=== PATIENT | male | born 1945 ===

== ENCOUNTER 2017-09-03 13:14 | Inpatient (IN) | payer MEDICARE, OTHER ==
[2017-09-03] MEDS ORDERED: Lactated Ringer's 1,000 ML IV SCH (14:30)
--- NOTE | 2017-09-03 15:00 | CT ---
PROCEDURE: CT HEAD WITHOUT CONTRAST. HISTORY: 71yoM, with dementia, generalized weakness COMPARISON: None available. TECHNIQUE: Axial computed tomography images were obtained through the head/brain without intravenous contrast. Radiation dose: Total exam DLP = 775 mGy-cm. This CT exam was performed using one or more of the following dose reduction techniques: Automated exposure control, adjustment of the mA and/or kV according to patient size, and/or use of iterative reconstruction technique. FINDINGS: HEMORRHAGE: No intracranial hemorrhage. BRAIN: No mass effect or edema. There is moderate atrophy. VENTRICLES: Unremarkable. No hydrocephalus. CALVARIUM: Unremarkable. PARANASAL SINUSES: There is complete opacification of the right maxillary sinus. There is also bony thickening consistent with chronic sinusitis. MASTOID AIR CELLS: Unremarkable as visualized. No inflammatory changes. OTHER FINDINGS: None. IMPRESSION: No acute findings
[2017-09-03 15:30] LABS: BASO # 0.03 K/mm3 (0.0-2.0); BASO % 0.3 % (0.0-3.0); EOS # 0.2 (0.0-0.7); EOS % 1.3 % (1.5-5.0); GRAN # 8.44 (1.4-6.5); GRAN % 72.4 % (50.0-68.0); HEMATOCRIT 37.6 % (42.0-52.0); LYMPH # 2.2 (1.2-3.4); LYMPH % 19.2 % (22.0-35.0); MEAN CELL VOLUME 101.1 fl (80.0-105.0); MEAN CORPUSCULAR HEMOGLOBIN 32.3 pg (25.0-35.0); MEAN CORPUSCULAR HGB CONC 31.9 g/dl (31.0-37.0); MEAN PLATELET VOLUME 11.8 fl (7.0-11.0); MONO # 0.8 (0.1-0.6); MONO % 6.8 % (1.0-6.0); WHITE BLOOD COUNT 11.7 10^3/ul (4.5-11.0)
[2017-09-03 15:45] LABS: INR 1.17 (0.93-1.08); PARTIAL THROMBOPLASTIN TIME 19.2 Seconds (25.1-36.5)
[2017-09-03 15:53] LABS: TROPONIN I 0.05 ng/mL
[2017-09-03 16:04] LABS: ALB/GLOB RATIO 1.2 (1.1-1.8); BILIRUBIN,TOTAL 0.7 mg/dL (0.2-1.3); CALCIUM 9.5 mg/dL (8.4-10.5); MAGNESIUM 1.6 mg/dL (1.7-2.2); POTASSIUM 5.1 mmol/L (3.6-5.0); TOTAL PROTEIN 6.2 g/dL (5.8-8.3)
--- NOTE | 2017-09-03 16:14 | RAD ---
HISTORY: 71yoM, dementia, generalized weakness, cough COMPARISON: None available. TECHNIQUE: Chest PA and lateral FINDINGS: Limited study as patient's could not elevate arms. LUNGS: No focal consolidation. Please note that chest x-ray has limited sensitivity for the detection of pulmonary masses. PLEURA: Skin fold limits evaluation of the lateral right lower chest. No significant pleural effusion identified. No definite pneumothorax . CARDIOVASCULAR: Median sternotomy wires with evidence of CABG. Heart size appears within normal limits. Ectatic aorta. Atherosclerotic calcifications of the aorta. OSSEOUS STRUCTURES: Degenerative changes. VISUALIZED UPPER ABDOMEN: Unremarkable. OTHER FINDINGS: None. IMPRESSION: Limited study. No acute findings identified. See above.
[2017-09-03] MEDS ORDERED: Insulin Regular 1 UNITS/0.01 ML ML IV ONE (16:59)
[2017-09-03] MEDS ORDERED: Magnesium Sulfate 2 GM in Sodium Chloride 0.9% 100 ML IVPB ONE (17:00)
--- NOTE | 2017-09-03 17:04 | ED PDOC ---
Arrival/HPI - General Chief Complaint: Weakness/Neurological Deficit Time Seen by Provider: 09/03/17 13:25 Historian: Patient, Spouse - History of Present Illness Narrative History of Present Illness (Text): pt w , hx of alzheimer's, non-verbal, recent dc from [facility] about 3wks ago, having progressive weakness, and dry cough. bruising. unable to ambulate anymore. 09/03/17 17:02 Symptom Course: Unchanged Past Medical History - Provider Review Nursing Documentation Reviewed: Yes - Infectious Disease Hx of Infectious Diseases: None - Cardiac Hx Cardiac Disorders: Yes Hx Hypertension: Yes Other/Comment: Tripple bypass - Pulmonary Hx Respiratory Disorders: No - Neurological Hx Neurological Disorder: Yes Hx Alzheimer's Disease: Yes - HEENT Hx HEENT Disorder: No - Renal Hx Renal Disorder: No - Endocrine/Metabolic Hx Endocrine Disorders: Yes Hx Diabetes Mellitus Type 2: Yes - Hematological/Oncological Hx Blood Disorders: No - Integumentary Hx Dermatological Disorder: No - Musculoskeletal/Rheumatological Hx Musculoskeletal Disorders: Yes Hx Unsteady Gait: Yes - Gastrointestinal Hx Gastrointestinal Disorders: No - Genitourinary/Gynecological Hx Genitourinary Disorders: No - Psychiatric Hx Psychophysiologic Disorder: No Hx Substance Use: No - Surgical History Other/Comment: tripple bypass - Anesthesia Hx Anesthesia: Yes Hx Anesthesia Reactions: No Family/Social History Family/Social History: No Known Family HX Smoking Status: Never Smoked Hx Alcohol Use: No Hx Substance Use: No Allergies/Home Meds Allergies/Adverse Reactions: Allergies Penicillins Allergy (Verified 09/03/17 13:34) ANAPHYLAXIS Home Medications: Home Meds Medication Instructions Recorded Confirmed Aspirin [Adult Low Dose Aspirin EC] 81 mg PO DAILY 09/03/17 09/03/17 Atorvastatin [Lipitor] 80 mg PO DAILY 09/03/17 09/03/17 Carvedilol [Coreg] 1 tab PO DAILY 09/03/17 09/03/17 Memantine [Namenda] 10 mg PO DAILY 09/03/17 09/03/17 MetFORMIN [glucoPHAGE] 1,000 mg PO DAILY 09/03/17 09/03/17 Nitroglycerin 0.4 mg/hr [Nitro-Dur 1 patch TD DAILY 09/03/17 09/03/17 0.4 mg/hr Patch] Pantoprazole Sodium [Protonix] 40 g PO DAILY 09/03/17 09/03/17 Rivastigmine Tartrate 9.5 mg PO DAILY 09/03/17 09/03/17 [Rivastigmine] amLODIPine [Norvasc] 10 mg PO DAILY 09/03/17 09/03/17 Review of Systems - Review of Systems Constitutional: Fatigue Eyes: Normal ENT: Normal Respiratory: Normal Cardiovascular: Normal Gastrointestinal: Normal Genitourinary Male: Normal Musculoskeletal: Normal Skin: Normal, Other (bruising) Neurological: Other (non-verbal) Hemo/Lymphatic: Normal, Easy Bruising Physical Exam - Physical Exam Physical Exam Limitations: Other (non-verbal) Vital Signs Reviewed: Yes Vital Signs Temp Pulse Resp BP Pulse Ox 09/03/17 17:01 96 H 18 124/91 H 97 09/03/17 16:54 89 18 132/75 97 09/03/17 15:04 99 H 18 135/78 97 09/03/17 13:30 99.8 F H 106 H 18 138/85 97 Temperature: Afebrile Blood Pressure: Normal Pulse: Regular Respiratory Rate: Normal Appearance: Positive for: Well-Appearing Pain Distress: None Mental Status: Positive for: other (non-verbal) Finger Stick Blood Glucose: 500 - Systems Exam Head: Present: Atraumatic Pupils: Present: PERRL Extroacular Muscles: Present: EOMI Conjunctiva: Present: Normal Ears: Present: Normal Mouth: Present: Moist Mucous Membranes Pharnyx: Present: Normal Nose (External): Present: Atraumatic Nose (Internal): Present: Normal Inspection Neck: Present: Normal Range of Motion Respiratory/Chest: Present: Clear to Auscultation, Good Air Exchange Abdomen: No: Tenderness, Distention, Normal Bowel Sounds, Peritoneal Signs, Rebound, Guarding, McBurney's Point Tender, Rovsing's Sign Present, Hernias, Feeding Tubes, Ostomy Tubes, Mass/Organomegaly, Scars, Other Back: Present: Normal Inspection Upper Extremity: Present: Other (b;l ue mild bruising ) Lower Extremity: Present: Normal Inspection Neurological: Present: Other (non-verbal. at baseline per ) Medical Decision Making ED Course and Treatment: pt w hyperglycemia 542 w ag 21, hypernatremia 151, hyperkalemia 5.1 wo peaked t waves, wbc 11.7, ivf hydration, repeat fs 497 - 8 u regular insulin given, awaiting ua. creatinine 1.7 09/03/17 17:29 09/03/17 17:32 Chest X-ray Dictator : Ronel Haddad MD Report Date : 09/03/2017 16:12:19 IMPRESSION: Limited study. No acute findings identified. See above. PROCEDURE: CT HEAD WITHOUT CONTRAST. Dictator : Pablo Padilla MD Report Date : 09/03/2017 14:59:14 IMPRESSION: No acute findings 09/03/17 17:[address] Dorman who will admit the patient. - Lab Interpretations Lab Results: 09/03/17 15:21 09/03/17 15:21 Lab Results 09/03/17 15:21: PT 12.8 H, INR 1.17 H, APTT 19.2 L 09/03/17 15:21: Sodium 151 H, Potassium 5.1 H, Chloride 117 H, Carbon Dioxide 18 L, Anion Gap 21 H, BUN 82 H, Creatinine 3.0 H, Est GFR ( Amer) 25, Est GFR (Non-Af Amer) 21, Random Glucose 542 H*, Calcium 9.5, Magnesium 1.6 L, Total Bilirubin 0.7, AST 45, ALT 41, Alkaline Phosphatase 144 H, Troponin I 0.05 , Total Protein 6.2, Albumin 3.3, Globulin 2.8, Albumin/Globulin Ratio 1.2 09/03/17 15:21: WBC 11.7 H, RBC 3.72, Hgb 12.0 L, Hct 37.6 L, MCV 101.1, MCH 32.3, MCHC 31.9, RDW 13.0, Plt Count 145, MPV 11.8 H, Gran % 72.4 H, Lymph % ( Auto) 19.2 L, [place] % (Auto) 6.8 H, Eos % (Auto) 1.3 L, Baso % (Auto) 0.3, Gran # 8.44 H, Lymph # 2.2, [place] # 0.8 H, Eos # 0.2, Baso # 0.03 I have reviewed the lab results: Yes - RAD Interpretation Narrative RAD Interpretations (Text): cxr no acute findings. CT head: opacification, thickening sinusitis. no acute findings. 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 - EKG Interpretation Interpreted by ED Physician: Yes (sinus tachycardia, flipped waves av4, v4-6, flattened avl) - Medication Orders Current Medication Orders: Lactated Ringer's (Lactated Ringer's) 1,000 mls @ 999 mls/hr IV .Q1H1M PARKER Last Admin: 09/03/17 14:30 Dose: 999 mls/hr eMAR Start Stop Document 09/03/17 14:30 OCS (Rec: 09/03/17 17:01 OCS [facility] [id number]) Intravenous Solution Start Date 09/03/17 Start Time 17:01 End Date 09/03/17 End time 18:02 Total Infusion Time 61 Magnesium Sulfate 2 gm/ Sodium (Chloride) 104 mls @ 102 mls/hr IVPB ONCE ONE Stop: 09/03/17 18:01 Last Admin: 09/03/17 17:23 Dose: 102 mls/hr eMAR Start Stop Document 09/03/17 17:23 OCS (Rec: 09/03/17 17:24 O[place] [facility] [id number][place] Intravenous Solution Start Date 09/03/17 Start Time 17:24 End Date 09/03/17 End time 18:26 Total Infusion Time 62 Lactated Ringer's (Lactated Ringer's) 1,000 mls @ 999 mls/hr IV .Q1H1M STA Stop: 09/03/17 18:36 Last Admin: 09/03/17 17:39 Dose: 999 mls/hr eMAR Start Stop Document 09/03/17 17:39 OCS (Rec: 09/03/17 17:40 OCS [facility] [id number]) Intravenous Solution Start Date 09/03/17 Start Time 17:40 End Date 09/03/17 End time 18:40 Total Infusion Time 60 Discontinued Medications Insulin Human Regular (Humulin R) 8 units IV ONCE ONE Stop: 09/03/17 17:00 Last Admin: 09/03/17 17:23 Dose: 8 units eMAR Start Stop Document 09/03/17 17:23 OCS (Rec: 09/03/17 17:23 OCS [facility] [id number]) Intravenous Solution Start Date 09/03/17 Start Time 17:23 End Date 09/03/17 End time 17:24 Total Infusion Time 1 MAR Blood Glucose Document 09/03/17 17:23 OCS (Rec: 09/03/17 17:23 OCS [facility] [id number]) Blood Glucose Finger Stick Blood Glucose (70-120) 500 Disposition/Present on Arrival - Present on Arrival Any Indicators Present on Arrival: No History of DVT/PE: No History of Uncontrolled Diabetes: Yes Urinary Catheter: No History of Decub. Ulcer: No History Surgical Site Infection Following: None - Disposition Have Diagnosis and Disposition been Completed?: Yes Diagnosis: Hyperglycemia Disposition Time: 17:41 Condition: STABLE Referrals: Jama Dorman MD [Primary Care Provider] - Follow up with primary Forms: Utan (Korean)
[2017-09-03] MEDS ORDERED: Lactated Ringer's 1,000 ML IV STA (17:36)
[2017-09-03 18:26] LABS: PH,URINE 5.5 (4.7-8.0); URINE BILIRUBIN NEGATIVE (NEGATIVE); URINE BLOOD SMALL (NEGATIVE); URINE GLUCOSE (UA) >=1000 mg/dL (NEGATIVE); URINE KETONE NEGATIVE (NEGATIVE); URINE LEUKOCYTE ESTERASE NEGATIVE Leu/uL (NEGATIVE); URINE PROTEIN TRACE mg/dL (<30 mg/dL); URINE UROBILINOGEN 0.2 E.U./dL (<1 E.U./dL)
[2017-09-03 18:30] LABS: URINE APPEARANCE CLEAR (CLEAR); URINE COLOR YELLOW (YELLOW)
[2017-09-03 18:39] LABS: URINE BACTERIA MANY (NEG); URINE WBC 0 - 2 /hpf (0-6)
[2017-09-03 18:40] LABS: URINE AMORPHOUS SEDIMENT FEW
[2017-09-03] MEDS: Insulin Reg-MEDIUM-Coverage SC SCH (21:30)
[2017-09-03 21:47] VITALS: BMI 25.1
[2017-09-03] MEDS ORDERED: Pneumococcal 23-Valent Vaccine IM ONE (21:47)
[2017-09-03] MEDS ORDERED: Influenza Vaccine 60 mcg/0.5 mL SYR (4YR UP) IM ONE (21:47)
[2017-09-04] MEDS: Insulin Reg-MEDIUM-Coverage SC SCH ×4 (08:49→23:09)
--- NOTE | 2017-09-04 09:57 | CON ---
DATE: 09/04/2017 The patient is admitted for Dr. Jama Dorman. REFERRING PHYSICIAN: Jama Dorman MD REASON FOR CONSULTATION: Evaluation of the patient unknown to me who presents with an elevated BUN and creatinine. HISTORY OF PRESENT ILLNESS: The patient is a 71-year-old male who is noncommunicative secondary to advanced dementia and Alzheimer disease. Long history of NIDDM, history of atherosclerotic heart disease. History of hypertension. History of hyperlipidemia. The patient apparently had been hospitalized at [facility] recently and was told that he had an issue with his kidney. It was not clear what type of workup be had. From my discussion with Dr. Dorman who sees the patient infrequently in the office, there is apparently no recollection of having any significant kidney issue. The patient presents to the hospital with increased weakness. He has not have a BUN of 82 with a creatinine of 3.0. His glucose is 542 with that point in time. Sodium was 151 with a potassium of 5.1. CO2 level was 18 with an anion gap of 21. All of the history is obtained from Dr. Dorman and from the chart as the patient is not communicative. PAST MEDICAL HISTORY: Significant for that of longstanding NIDDM, history of Alzheimer disease with worsening dementia. The patient is noncommunicative. History of atherosclerotic heart disease. History of hypertension. History of hyperlipidemia. No apparent history of anemia. MEDICATIONS AT HOME: Include that of Norvasc rivastigmine, Protonix, nitroglycerin patch, metformin, Namenda, Coreg, Lipitor, and baby aspirin. ALLERGIES: THE PATIENT HAS AN ALLERGY TO PENICILLIN WITH ANAPHYLAXIS. CURRENT MEDICATIONS: In the hospital include that of lactated Ringer's, Namenda, sliding scale insulin, Exelon patch, Ecotrin, and Coreg. SOCIAL HISTORY: No history of cigarette smoking. No history of alcohol use. FAMILY HISTORY: Completely unobtainable. REVIEW OF SYSTEMS: Unobtainable as the patient is noncommunicative. PHYSICAL EXAMINATION: GENERAL: The patient is currently seen on 5R. He appears to be comfortable lying supine in bed. Again, he is nonverbal. VITAL SIGNS: Blood pressure 144/69, temperature 97.1 with a T-max of 99.8. Respiratory rate is 16 with a pulse ox of 96%, and pulse of 97. HEENT: Exam shows him to be normocephalic, atraumatic. Eyes are open. Posterior pharynx appears normal. Conjunctiva are pink. Sclerae are nonicteric. NECK: Supple. No neck vein distention. No thyromegaly. No lymphadenopathy. No bruits. CHEST: Clear to auscultation and percussion with no rales, no rhonchi or wheezing. CARDIOVASCULAR: Shows a regular rate and rhythm without murmurs, rubs or gallops. ABDOMEN: Soft. Bowel sounds normal. No rebound. No guarding. No masses. No abdominal distention. BACK: No CVAT. No spinal tenderness. EXTREMITIES: Show no lower extremity cyanosis, clubbing or edema. Distal lower extremity pulses are 1 to 2+ bilaterally. NEUROLOGIC: Difficult to assess as the patient is noncommunicative. He appears to be alert with no gross focal motor deficits that are obvious to me. LABORATORY DATA AND IMAGING: Admitting head CT, no acute findings. Admitting chest x-ray, no acute pulmonary disease. Labs, CBC, white blood cell count 11.7, hemoglobin 12.0 with a platelet count of 145,000. Coags, PT 12.8 with a PTT of 19.2. Chemistries, sodium 151, potassium 5.1, chloride 117 with a CO2 of 18. BUN is 82 with a creatinine of 3.0. There are no previous BUN and creatinine determinations available in the EMR. Glucose on admission was 542. Calcium was 9.5 with a magnesium of 1.6. Liver enzymes were essentially normal. Troponin is negative. Albumin is 3.3. Most recent glucose is down to 292 on sliding scale insulin. Urine showed red blood cells in his urine, no significant white blood cells, positive bacteria. Positive yeast. Microbiology, no results yet. ASSESSMENT: Elevated BUN and creatinine. As of dictation, it is unclear as to what his BUN and creatinine were during his recent admission to [facility]. He was told that there was an issue with his kidney. Dr. Dorman and I had discussed this prior to the dictation. Dr. Dorman spoke to the patient's . Apparently there is some issue with the kidney but it is not clear to the severity of this issue. I do not want to do a complete full renal workup, but I will do a precursory renal workup. We will obtain renal ultrasounds. It would be important to try and obtain recent lab results from his recent hospitalizations at [facility]. Non-insulin dependent diabetes mellitus with hyperglycemia. The patient will continue on sliding scale insulin. Mild hypernatremia with hyperkalemia. We will switch the patient over to half-normal saline, potassium-free IV fluids until its certain that his p.o. intake is adequate. History of arteriosclerotic heart disease, appears to be stable. The patient will continue on present outpatient medications. History of Alzheimer disease with progressive dementia. The patient is nonverbal and noncommunicative. History of hyperlipidemia. The patient will continue statin therapy. PLAN: 1. Discussed with Dr. Dorman and staff in detail. I will limit the scope of the renal workup and I will obtain preliminary studies. Most importantly, we will try and obtain recent outpatient records. 2. We will obtain a phosphorus level. Perhaps binder therapy if phosphorus level is elevated. I will obtain a PTH level and a vitamin D level. 3. We will obtain a urine C and S in light of bacteria and yeast in his urine. 4. We will monitor daily labs over the next several days. 5. Monitor accurate Is and Os. 6. Agree with placing the patient on a renal diet. 7. As discussed with Dr. Dorman should the patient's renal parameters significantly worsen, he would make a very poor candidate for dialysis in light of his current neurological status. Thank you for letting me partake and share in the care of your patient. Bravo Carr MD
[2017-09-04] MEDS ORDERED: RIVASTIGMINE TARTRATE PO SCH (10:00)
--- NOTE | 2017-09-04 10:04 | US ---
PROCEDURE: Ultrasound of the Kidneys HISTORY: arf COMPARISON: None available. TECHNIQUE: Sonogram of the kidneys. FINDINGS: RIGHT KIDNEY: Right kidney measures approximate 9.2 x 5.3 x 5.4 cm. Normal in size, contour and however increased echotexture; rule out underlying medical renal disease. No stone, solid mass lesion or hydronephrosis visualized. LEFT KIDNEY: Left kidney measures approximately 9.0 x4 0.5 x 5.1 cm. Normal in size, contour however increased echotexture; rule out underlying medical renal disease. No stone, solid mass lesion or hydronephrosis visualized. OTHER FINDINGS: None. IMPRESSION: No evidence of nephrolithiasis or hydronephrosis. Echogenic kidneys suggests underlying medical renal disease. Clinical correlation recommended.
--- NOTE | 2017-09-04 10:47 | CARD ---
APPROVED REPORT EKG Measurement Heart [id number] <Conclusion> Poor data quality, interpretation may be adversely affected Sinus tachycardia Inferior infarct, age undetermined Abnormal ECG
[2017-09-04] MEDS: Sodium Chloride 0.45% 1,000 ML IV SCH (11:16)
[2017-09-04 14:00] LABS: T4 8.8 ug/dL (5.5-11.0)
[2017-09-04 14:14] LABS: THYROID STIMULATING HORMONE 0.27 mIU/mL (0.46-4.68)
--- NOTE | 2017-09-05 01:12 | HP ---
HISTORY OF PRESENT ILLNESS: A 71-year-old [place] Islander male with a long history of dementia, history of hypertension, initially admitted to [facility] for weakness and inability to walk. The patient also had hip pain. X-rays of the lumbar spine actually revealed that the left hip had no significant fractures. There was some degenerative arthritis. The patient had severe weakness, was brought to the emergency room at [facility] and was found to have renal failure with BUN and creatinine of 82 and 3.0. Blood sugar over 542, elevated sodium of 151, elevated potassium of 5.1 and bicarb of 18. White count 11.7. PHYSICAL EXAMINATION VITAL SIGNS: The patient is afebrile, blood pressure 144/69. GENERAL: The patient is nonverbal. He is arousable, awake, and alert. He is thin male in no apparent distress. HEART: Reveals sinus rhythm. CHEST: Clear to auscultation. ABDOMEN: Benign. GENITOURINARY: The patient is incontinent of urine. NEUROLOGICAL EXAMINATION: Grossly intact except for patient unable to cooperate with exam and he is nonverbal. Apparently, he has a long history of dementia. Discussed with the family as far as DNR and they have not determined the status at this point, but we will get clarification from his . IMPRESSION: A 71-year-old white male with long history of dementia, uncontrolled diabetes mellitus, hypernatremia, hyperkalemia, and renal insufficiency acute versus chronic, and hyperglycemia. Jama Dorman MD cc:
[2017-09-05 05:00] LABS: BASO # 0.03 K/mm3 (0.0-2.0); BASO % 0.3 % (0.0-3.0); EOS # 0.4 (0.0-0.7); EOS % 3.9 % (1.5-5.0); GRAN # 8.12 (1.4-6.5); GRAN % 74.5 % (50.0-68.0); HEMATOCRIT 36.4 % (42.0-52.0); LYMPH # 1.8 (1.2-3.4); LYMPH % 16.2 % (22.0-35.0); MEAN CELL VOLUME 97.3 fl (80.0-105.0); MEAN CORPUSCULAR HEMOGLOBIN 31.3 pg (25.0-35.0); MEAN CORPUSCULAR HGB CONC 32.1 g/dl (31.0-37.0); MEAN PLATELET VOLUME 11.4 fl (7.0-11.0); MONO # 0.6 (0.1-0.6); MONO % 5.1 % (1.0-6.0); RED CELL DISTRIBUTION WIDTH 13.2 % (11.5-14.5); WHITE BLOOD COUNT 10.9 10^3/ul (4.5-11.0)
[2017-09-05 05:08] LABS: ALB/GLOB RATIO 1.1 (1.1-1.8); BILIRUBIN,TOTAL 0.8 mg/dL (0.2-1.3); CALCIUM 9.4 mg/dL (8.4-10.5); MAGNESIUM 1.5 mg/dL (1.7-2.2); PHOSPHOROUS 3.7 mg/dL (2.5-4.5); POTASSIUM 4.5 mmol/L (3.6-5.0)
[2017-09-05] MEDS: Insulin Reg-MEDIUM-Coverage SC SCH ×5 (08:13→23:48)
[2017-09-05] MEDS: Sodium Chloride 0.45% 1,000 ML IV SCH (13:06)
[2017-09-05 15:06] LABS: URINE COLLECTION TIME 24 HOURS
[2017-09-05] MEDS: Magnesium Oxide 400 mg Tab UD PO SCH (17:19)
--- NOTE | 2017-09-05 18:48 | PN ---
DATE: SUBJECTIVE: A 71-year-old male admitted to the hospital with severe weakness, found to be hypernatremic, azotemic, elevated creatinine, hyperkalemic. The patient's sodium is still 151, potassium is dropped to 4.5, BUN is dropped from 80 to 55 and creatinine is dropped from 3 to 2.4, blood sugars 222. Ultrasound showed normal size kidney, increased echogenicity on the cortex and consistent with medical renal disease. The patient is tolerating his diet well. He is more awake, alert, but nonverbal. We will start physical therapy and occupational therapy. Continue to monitor his renal functions and to assess his draining clearance and progress note. 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 The patient also started on small dose of steroids and have an outpatient rheumatology consult. Jama Dorman MD
[2017-09-05] MEDS ORDERED: Insulin Regular 1 UNITS/0.01 ML ML SC STA (22:09)
[2017-09-05] MEDS: Insulin Detemir 100 units/ml Vial (Levemir) SC SCH (22:19)
[2017-09-06] MEDS: Sodium Chloride 0.45% 1,000 ML IV SCH (03:45)
[2017-09-06 06:50] LABS: HEMATOCRIT 35.1 % (42.0-52.0); MEAN CELL VOLUME 96.7 fl (80.0-105.0); MEAN CORPUSCULAR HEMOGLOBIN 31.4 pg (25.0-35.0); MEAN CORPUSCULAR HGB CONC 32.5 g/dl (31.0-37.0); MEAN PLATELET VOLUME 11.9 fl (7.0-11.0); RED CELL DISTRIBUTION WIDTH 13.1 % (11.5-14.5); WHITE BLOOD COUNT 12.6 10^3/ul (4.5-11.0)
[2017-09-06 07:27] LABS: BILIRUBIN,TOTAL 0.7 mg/dL (0.2-1.3); POTASSIUM 3.6 mmol/L (3.6-5.0); TOTAL PROTEIN 5.6 g/dL (5.8-8.3)
[2017-09-06] MEDS: Insulin Reg-MEDIUM-Coverage SC SCH ×3 (08:58→18:05)
[2017-09-06] MEDS: Insulin Detemir 100 units/ml Vial (Levemir) SC SCH ×2 (09:00→21:50)
[2017-09-06] MEDS: Magnesium Oxide 400 mg Tab UD PO SCH ×2 (11:10→18:05)
--- NOTE | 2017-09-06 13:43 | PN ---
DATE: SUBJECTIVE: A 71-year-old Slov[place] male admitted to the hospital with renal failure, hypernatremia, hyperkalemia, failure to thrive, severe weakness, unable to walk, advanced dementia. The patient is improved today. LABORATORY DATA: His BUN and creatinine have responded down to 52 and 2.2. Sodium has dropped from 151 to 147. Blood sugar is under good control. ASSESSMENT AND PLAN: We will start him on long-term insulin and insulin coverage. The patient is doing physical therapy. He is tolerating his diet well. Actually, he spoke today to me, which he has not done in quite sometime. We will continue physical therapy and occupational therapy. Creatinine clearance is 38. Ultrasound of the kidneys is noted. The patient does have a bullous condition of the skin. He was started on small dose of steroids. He will most likely need a biopsy for this and possible outpatient treatment. Jama Dorman MD
--- NOTE | 2017-09-06 16:04 | CP.PCM.CON ---
History of Present Illness - History of Present Illness History of Present Illness: 71 year old male with PMH of alzheimer's dementia, CAD S/P CABG, HTN, DM was brought in to [facility] because of progressive weakness and development of bruises which turned into blisters on the right anterior chest area, right arm, left foot. As per the , it started only last week. He was recently admitted in [facility] for weakness but the does not know what exactly he was being treated for. As per the , he has some fevers, no vomiting, no diarrhea, no convulsions, no loss of consciousness. The patient does not complain of anything but he is also non-verbal. As per , they have a dog at home but the dog does not interact with the patient or touches the patient. He takes a bath by shower with the help of his . They live in a house in [place]. Infectious Diseases consult is requested to further evaluate and manage. Review of Systems - Review of Systems Systems not reviewed;Unavailable: Dementia Past Patient History - Infectious Disease Hx of Infectious Diseases: None - Past Social History Smoking Status: Never Smoked - CARDIAC Hx Cardiac Disorders: Yes Hx Hypertension: Yes Other/Comment: Tripple bypass - PULMONARY Hx Respiratory Disorders: Yes Hx Bronchitis: Yes - NEUROLOGICAL Hx Neurological Disorder: Yes Hx Alzheimer's Disease: Yes - HEENT Hx HEENT Problems: No - RENAL Hx Chronic Kidney Disease: No - ENDOCRINE/METABOLIC Hx Endocrine Disorders: Yes Hx Diabetes Mellitus Type 2: Yes - HEMATOLOGICAL/ONCOLOGICAL Hx Blood Disorders: No - INTEGUMENTARY Hx Dermatological Problems: Yes Other/Comment: MULTIPLE OPENED BLISTER-RIGHT PINNA,RIGHT INNER LATERAL ARM, RIGHT UNDER THE BREAST,RIGHT LATERAL SIDE OF BIG TOE, LEFT HEEL PRESSURE ULCER WITH NECROTIC TISSUE,. BILATERAL LOWER BUTTOCKS WITH IASD,SLOUGHED SKIN. - MUSCULOSKELETAL/RHEUMATOLOGICAL Hx Musculoskeletal Disorders: Yes Hx Falls: Yes Hx Unsteady Gait: Yes (UNABLE TO AMBULATE,GAIT INSTABILITY) - GASTROINTESTINAL Hx Gastrointestinal Disorders: No - GENITOURINARY/GYNECOLOGICAL Hx Genitourinary Disorders: Yes Hx Incontinence: Yes - PSYCHIATRIC Hx Psychophysiologic Disorder: Yes Hx Depression: Yes Hx Substance Use: No - SURGICAL HISTORY Hx Surgeries: Yes Other/Comment: tripple bypass - ANESTHESIA Hx Anesthesia: Yes Hx Anesthesia Reactions: No Meds Allergies/Adverse Reactions: Allergies Allergy/AdvReac Type Severity Reaction Status Date / Time Penicillins Allergy ANAPHYLAXIS Verified 09/03/17 19:53 - Medications Medications: Current Medications Aspirin (Ecotrin) 81 mg PO DAILY [facility] Last Admin: 09/06/17 11:11 Dose: 81 mg Carvedilol (Coreg) 3.125 mg PO DAILY [facility] Last Admin: 09/06/17 11:10 Dose: 3.125 mg Sodium Chloride (Sodium Chloride 0.45%) 1,000 mls @ 75 mls/hr IV .[id number] [facility] Last Admin: 09/06/17 03:45 Dose: 75 mls/hr Insulin Detemir (Levemir) 15 unit SC ACS [facility] Last Admin: 09/06/17 09:00 Dose: 15 unit Insulin Human Regular (Humulin R Med) 0 units SC [facility] PRN Reason: Protocol Last Admin: 09/06/17 08:58 Dose: 1 units Magnesium Oxide (Mag-Ox) 400 mg PO BID [facility] Last Admin: 09/06/17 11:10 Dose: 400 mg Memantine (Namenda) 10 mg PO DAILY [facility] Last Admin: 09/06/17 11:12 Dose: 10 mg Prednisone (Prednisone Tab) 20 mg PO DAILY [facility] Last Admin: 09/06/17 11:12 Dose: 20 mg Rivastigmine (Exelon 9.5 Mg/24 Hr Patch) 1 patch TD DAILY [facility] Last Admin: 09/06/17 11:12 Dose: 1 patch Physical Exam - Constitutional Appears: Chronically Ill - Head Exam Head Exam: NORMAL INSPECTION - ENT Exam ENT Exam: Mucous Membranes Moist - Neck Exam Neck exam: Negative for: Meningismus - Respiratory Exam Respiratory Exam: Decreased Breath Sounds - Cardiovascular Exam Cardiovascular Exam: +S1, +S2 - GI/Abdominal Exam GI & Abdominal Exam: Soft. absent: Tenderness - Skin Additional comments: few bullae which have ruptured noted on the right arm, right anterior chest wall , left foot - some have hemorrhage and clear fluid within them Results - Vital Signs Recent Vital Signs: Last Vital Signs Temp 98.5 F 09/06/17 08:00 Pulse 93 H 09/06/17 11:10 Resp 18 09/06/17 08:00 BP 168/93 H 09/06/17 11:10 Pulse Ox 97 09/06/17 08:00 - Labs Result Diagrams: 09/06/17 06:15 09/06/17 06:15 Labs: Laboratory Results - last 24 hr 09/03/17 09/05/17 09/05/17 18:42 12:09 12:09 WBC RBC Hgb Hct MCV MCH MCHC RDW Plt Count MPV Sodium Potassium Chloride Carbon Dioxide Anion Gap BUN Creatinine 2.4 H Est GFR ( Amer) Est GFR (Non-Af Amer) POC Glucose (mg/dL) 386 H Random Glucose Calcium Total Bilirubin AST ALT Alkaline Phosphatase Total Protein Albumin Globulin Albumin/Globulin Ratio Urine Collection Time 24 24 Urine Total Volume 1625 H 1625 H Creatinine Clearance 38.0 L Ur Protein 24 Hr Calc 1251 H 09/05/17 09/05/17 09/05/17 16:08 21:45 23:12 WBC RBC Hgb Hct MCV MCH MCHC RDW Plt Count MPV Sodium Potassium Chloride Carbon Dioxide Anion Gap BUN Creatinine Est GFR ( Amer) Est GFR (Non-Af Amer) POC Glucose (mg/dL) 388 H 428 H* 321 H Random Glucose Calcium Total Bilirubin AST ALT Alkaline Phosphatase Total Protein Albumin Globulin Albumin/Globulin Ratio Urine Collection Time Urine Total Volume Creatinine Clearance Ur Protein 24 Hr Calc 09/06/17 09/06/17 09/06/17 06:15 06:15 07:46 WBC 12.6 H RBC 3.63 Hgb 11.4 L Hct 35.1 L MCV 96.7 MCH 31.4 MCHC 32.5 RDW 13.1 Plt Count 103 L MPV 11.9 H Sodium 147 Potassium 3.6 Chloride 116 H Carbon Dioxide 21 Anion Gap 14 BUN 52 H Creatinine 2.2 H Est GFR ( Amer) 36 Est GFR (Non-Af Amer) 30 POC Glucose (mg/dL) 151 H Random Glucose 143 H Calcium 9.0 Total Bilirubin 0.7 AST 43 ALT 38 Alkaline Phosphatase 129 H Total Protein 5.6 L Albumin 2.9 L Globulin 2.7 Albumin/Globulin Ratio 1.0 L Urine Collection Time Urine Total Volume Creatinine Clearance Ur Protein 24 Hr Calc Assessment & Plan - Assessment and Plan (Free Text) Plan: Assessment Systemic inflammatory response syndrome with associated blisters and bullae, some with hemorrhage R/O hemorrhagic cellulitis, R/O vasculitis R/O pyoderma gangrenosum alzheimer's dementia CAD S/P CABG chronic renal failure HTN DM Plan concerned about staph and pseudomonas - will start Zyvox (although platelets are at 103 and will monitor closely) and Azactam and will get blood and wound cx will also get RENNY, RF, ESR, CRP would recommend skin biopsy will monitor clinically
[2017-09-06] MEDS: Aztreonam 1 Gm in NS 100mL 100 ML IVPB SCH ×2 (18:03→21:50)
--- NOTE | 2017-09-07 01:58 | PN ---
DATE: 09/06/2017 SUBJECTIVE: The patient is seen lying in bed. He is awake. He is napped, very talkative. He does not talk at all. is at bedside. PHYSICAL EXAMINATION: VITAL SIGNS: Blood pressure 168/93, heart rate 93, respiratory rate 18, temperature 98.5. HEENT: Normocephalic, atraumatic. NECK: Supple. No JVD. LUNGS: Bilateral equal air entry, no rales. CARDIAC: S1 and S2. Regular, rate, and rhythm. No murmur, no rub. ABDOMEN: Obese, distended, soft, nontender, bowel sounds present. EXTREMITIES: No lower extremity edema. Positive blisters on the right upper arm, right ear, right thigh. INTAKE AND OUTPUT: 1800/400. LABORATORY DATA: WBC 12.6, hemoglobin 11.4, hematocrit 35, platelets 103. Sodium 147, potassium 3.6, chloride 116, CO2 of 21, BUN 52, creatinine 2.2, glucose 143, calcium 9.0. AST 43, ALT 38, albumin 2.9. Creatinine clearance 38, urine protein 1251. Urine culture no growth. Renal ultrasound; right kidney 9 cm, left kidney 9 cm, no hydronephrosis, no kidney stones, echogenic kidneys. CURRENT MEDICATIONS: Azactam 1 g q. 8 hours started this afternoon, Coreg 3.125 mg, Ecotrin, Exelon, insulin, magnesium oxide, Namenda, prednisone, sodium chloride, half normal saline at 75, Zyvox started this afternoon. ASSESSMENT: 1. Acute kidney injury superimposed on chronic kidney disease stage 3? renal function is improving, creatinine has come down from 3.0 to 2.2. 2. Hypernatremia consistent with dehydration. 3. Leukocytosis, coronary artery disease. 4. Alzheimer/dementia. 5. History of hyperlipidemia. 6. Rule out sepsis. PLAN: 1. Continue hypotonic IV fluids. 2. Follow up granadso cultures. 3. Recommend ID evaluation. 4. Avoid nephrotoxins. 5. Push p.o. intake. 6. Check ESR. 7. Close followup. Nabila Crook MD
[2017-09-07] MEDS: Linezolid 600 mg in D5W 300 ml 600 MG/300 ML BAG IVPB SCH ×2 (02:04→11:30)
[2017-09-07] MEDS: Aztreonam 1 Gm in NS 100mL 100 ML IVPB SCH ×2 (06:35→14:00)
[2017-09-07 06:54] LABS: HEMATOCRIT 31.2 % (42.0-52.0); MEAN CELL VOLUME 94.8 fl (80.0-105.0); MEAN CORPUSCULAR HEMOGLOBIN 31.6 pg (25.0-35.0); MEAN CORPUSCULAR HGB CONC 33.3 g/dl (31.0-37.0); MEAN PLATELET VOLUME 11.7 fl (7.0-11.0); RED CELL DISTRIBUTION WIDTH 12.9 % (11.5-14.5); WHITE BLOOD COUNT 10.9 10^3/ul (4.5-11.0)
[2017-09-07 07:33] LABS: BILIRUBIN,TOTAL 0.5 mg/dL (0.2-1.3); CALCIUM 8.7 mg/dL (8.4-10.5); POTASSIUM 3.7 mmol/L (3.6-5.0); TOTAL PROTEIN 5.5 g/dL (5.8-8.3)
[2017-09-07 07:40] LABS: URINE BILIRUBIN NEGATIVE (NEGATIVE); URINE BLOOD LARGE (NEGATIVE); URINE GLUCOSE (UA) 100 mg/dL (NEGATIVE); URINE KETONE NEGATIVE (NEGATIVE); URINE LEUKOCYTE ESTERASE NEGATIVE Leu/uL (NEGATIVE); URINE PROTEIN 30 mg/dL (<30 mg/dL); URINE UROBILINOGEN 0.2 E.U./dL (<1 E.U./dL)
[2017-09-07 07:42] LABS: URINE APPEARANCE SL CLOUDY (CLEAR); URINE COLOR YELLOW (YELLOW)
[2017-09-07 08:03] LABS: URINE EPITHELIAL CELLS 0 - 2 /hpf (0-5); URINE RBC TNTC /hpf (0-2); URINE WBC 0 - 2 /hpf (0-6)
[2017-09-07 08:21] VITALS: RESP 20; TEMP 97.3; O2SAT 95
[2017-09-07] MEDS: Insulin Reg-MEDIUM-Coverage SC SCH ×3 (09:22→16:45)
[2017-09-07] MEDS: Magnesium Oxide 400 mg Tab UD PO SCH ×2 (11:29→16:59)
[2017-09-07 11:40] VITALS: BP 131/78; PULSE 90
--- NOTE | 2017-09-07 13:14 | PN ---
DATE: SUBJECTIVE: A 71-year-old white male with dementia, admitted with renal failure, hyperkalemia, and hyponatremia. The patient is improved. Finally, he is speaking today, doing physical therapy, occupational therapy, tolerating diet well. BUN and creatinine dropped to 47 and 2.1. Potassium is up to 3.7 and the sodium is down to 145. The patient is improving fairly. ASSESSMENT AND PLAN: We will put him in TCU bed. He is doing physical therapy and he is tolerating his diet well. Kidney function is returning to baseline. Jama Dorman MD
[2017-09-07] MEDS: Insulin Detemir 100 units/ml Vial (Levemir) SC SCH (13:43)
--- NOTE | 2017-09-07 15:21 | PN ---
DATE: SUBJECTIVE: The patient is currently seen being fed cautiously by his . The patient is speaking with one-word answers today. His BUN and creatinine have improved with IV fluid hydration. We still do not know the patient's baseline renal parameters. The patient's states that she was told when he was in a previous hospital that he did have an issue with his kidney. MEDICATIONS: Medication list reviewed. The patient is currently on Azactam, Coreg, Ecotrin, Exelon, sliding scale insulin, long-acting insulin, mag oxide, Namenda, prednisone, and Zyvox. OBJECTIVE: INTAKE AND OUTPUT: Intake 360, output 1600. The patient has a Snow catheter in place. VITAL SIGNS: Blood pressure 131/78, temperature 97.3, respiratory rate is 20 with the pulse of 90. HEENT: Shows him to be normocephalic, atraumatic. Conjunctivae are pale. Sclerae nonicteric. NECK: Supple. No neck vein distention. CHEST: Clear to auscultation and percussion. CARDIOVASCULAR: Shows a regular rate and rhythm with no murmurs, rubs or gallops noted. ABDOMEN: Soft. Bowel sounds normal. No rebound or guarding. No masses. No abdominal distention. EXTREMITIES: Bullous lesions over his right arm area. No lower extremity edema. NEUROLOGIC: Difficult to assess as the patient is speaking in one-word answers only. GENITOURINARY: The patient does have an indwelling Snow catheter. LABORATORY DATA AND IMAGING STUDIES: CBC, white blood cell count today 10.9 and hemoglobin 10.4 with platelet count of 105,000. Chemistry show sodium of 145, potassium of 3.7, chloride of 115 with the CO2 of 20, BUN is down to 47 from a high of 82, creatinine is down to 2.1 from a high of 3, glucose is 139, calcium 8.7, phosphorus level was normal at 3.7, and magnesium level was low at 1.5 and the patient has received magnesium supplements. Liver enzymes are normal. Albumin is 2.7. 24-hour urine showed creatinine clearance of 38 mL per minute with 1.25 g of protein in the urine, likely all consistent with years of diabetes. Microbiology, urine cultures are negative. ASSESSMENT: 1. Acute renal failure superimposed on chronic kidney disease, likely stage III. Mild proteinuria perhaps secondary to long-standing diabetes. The patient had received a short course of IV fluid hydration. 2. Bullous rash of his right upper extremity. Possibly infectious in nature. The patient was seen by ID and started on IV antibiotic therapy. All cultures are negative to date. 3. Status post mild hypernatremia and hyperkalemia. This has resolved with IV fluid hydration. 4. History of arteriosclerotic heart disease, currently stable on present cardiac medications. 5. History of severe progressive dementia in the setting of Alzheimer's disease. The patient appears to be more alert and perhaps slightly more communicative. He is answering in one-word answers. 6. History of hyperlipidemia, on statin therapy. 7. History of hob-jbdjtyj-fzzrgmhia diabetes mellitus on insulin therapy. PLAN 1. IV antibiotics as per Infectious Disease. 2. Reviewed case 25 and urine studies and renal ultrasound with his . I have explained to her that he likely has chronic kidney disease stage III in the setting of long-standing diabetes with proteinuria. I will not do a full serological workup at this time as it was likely done in the past. 3. It is important to keep the patient well hydrated to avoid any prerenal azotemia type of picture superimposed on his chronic kidney disease stage III. 4. P.r.n. Aranesp if hemoglobin less than 10. 5. Check iron saturations as his hemoglobin has drifted down what from 12 down to 10.4. 6. According to staff on 5R, the patient will likely be transferred to the TCU for a week of therapy and to complete a course of antibiotic therapy. Bravo Carr MD
--- NOTE | 2017-09-07 17:43 | PN ---
DATE: 09/07/2017 SUBJECTIVE: The patient seen in bed, in no acute distress, nontoxic. PHYSICAL EXAMINATION VITAL SIGNS: Temperature is 97, blood pressure 120/70, respiratory rate is 20, and heart rate of 90. HEENT: Examination of HEENT is unremarkable. NECK: Supple. LUNGS: Have decreased breath sounds. HEART: Normal S1 and S2. ABDOMEN: Soft and nontender. LABORATORY DATA: Laboratory examination reveals a white count of 10,900, hemoglobin of 10, and platelets of 105. Chemistries reveals a BUN of 47 and creatinine of 2.1. Urinalysis is noted. Serology is negative. Blood cultures, no growth. Right arm culture is pending. Urine culture has no growth. Review of the orders reveals the patient be on aztreonam, linezolid. note from yesterday is reviewed. ASSESSMENT AND PLAN: He is a 71-year-old male who was seen early this morning with systemic inflammatory response syndrome, associated blisters and bulla and with hemorrhagic cellulitis versus vasculitis versus bullous pemphigoid, Alzheimer's, dementia. The patient is currently on Zyvox and Azactam. Recommend a skin biopsy. We will continue to monitor her closely. Keith August MD
== END 2017-09-07 17:43 | DRG 682 ==
LOC: ED 13:14 → ERH 17:38 → 5RNO 18:49
PROVIDERS: ADMIT Internal Medicine; ATTEND Internal Medicine
DX: N17.9 Acute kidney failure, unspecified (principal); R65.11 Systemic inflammatory response syndrome (SIRS) of non-infectious origin with acute organ dysfunction; E11.65 Type 2 diabetes mellitus with hyperglycemia; E11.22 Type 2 diabetes mellitus with diabetic chronic kidney disease; E87.0 Hyperosmolality and hypernatremia; N18.3 Chronic kidney disease, stage 3 (moderate); E87.5 Hyperkalemia; E86.0 Dehydration; G30.9 Alzheimer's disease, unspecified; F02.80 Dementia in other diseases classified elsewhere, unspecified severity, without behavioral disturbance, psychotic disturbance, mood disturbance, and anxiety; I25.10 Atherosclerotic heart disease of native coronary artery without angina pectoris; E78.5 Hyperlipidemia, unspecified; I12.9 Hypertensive chronic kidney disease with stage 1 through stage 4 chronic kidney disease, or unspecified chronic kidney disease; R62.7 Adult failure to thrive; R80.9 Proteinuria, unspecified; R21 Rash and other nonspecific skin eruption; M19.90 Unspecified osteoarthritis, unspecified site; Z95.1 Presence of aortocoronary bypass graft; Z79.4 Long term (current) use of insulin; Z79.82 Long term (current) use of aspirin; Z88.0 Allergy status to penicillin

== ENCOUNTER 2017-09-07 17:47 | Inpatient (IN) | payer OTHER ==
[2017-09-07 21:23] VITALS: BMI 20.8
[2017-09-07] MEDS ORDERED: Linezolid 600 mg in D5W 300 ml 600 MG/300 ML BAG IVPB SCH (22:00)
[2017-09-07] MEDS: Aztreonam 1 Gm in NS 100mL 100 ML IVPB SCH (22:11)
[2017-09-07] MEDS: Insulin Detemir 100 units/ml Vial (Levemir) SC SCH (22:12)
[2017-09-07] MEDS: Insulin Reg-MEDIUM-Coverage SC SCH (22:51)
[2017-09-08] MEDS: Aztreonam 1 Gm in NS 100mL 100 ML IVPB SCH (05:22)
[2017-09-08] MEDS: Insulin Detemir 100 units/ml Vial (Levemir) SC SCH ×2 (06:34→21:51)
[2017-09-08] MEDS: Insulin Reg-MEDIUM-Coverage SC SCH ×3 (06:35→21:50)
[2017-09-08] MEDS: Linezolid 600 mg in D5W 300 ml 600 MG/300 ML BAG IVPB SCH ×2 (11:24→21:43)
[2017-09-08] MEDS: Magnesium Oxide 400 mg Tab UD PO SCH (11:26)
--- NOTE | 2017-09-08 11:44 | PN ---
DATE: SUBJECTIVE: A 16-year-old Hebrew male admitted to the hospital with severe weakness, dementia, bullous lesions of the upper and lower extremities. The patient was also admitted with acute renal insufficiency, which has begun to resolve with creatinine dropping, sodium dropping and normalization of potassium and sodium levels. The patient is doing well. He is transferred to TCU for physical therapy and occupational therapy. PHYSICAL EXAMINATION VITAL SIGNS: Stable. ASSESSMENT AND PLAN: The patient is tolerating his diet. Continue his therapy and continue to monitor his renal function. Jama Dorman MD
[2017-09-08] MEDS: Aztreonam 1 Gm in NS 100mL 100 ML IV SCH ×2 (13:38→21:43)
--- NOTE | 2017-09-08 19:35 | CON ---
DATE: 09/08/2017 LOCATION: The patient is seen in transitional care, in 315. CHIEF COMPLAINT: The patient has weakness and is nonverbal. HISTORY OF PRESENT ILLNESS: This is a 71-year-old male, nonverbal with a history of Alzheimer's, dementia, coronary artery disease, hypertension, diabetes mellitus, who was admitted to the acute care with a diagnosis of hyperglycemia. Consultation was requested. Dr. Jamison had seen the patient. The patient is found to have blisters, bullae, and now transferred to transitional care where the patient is getting further care and antibiotics. REVIEW OF SYSTEMS: Reveals the patient has not any fevers, any chills. He is nonverbal. No diarrhea has been reported. No bright red blood per rectum has been reported. PAST MEDICAL HISTORY: Significant for Alzheimer's, dementia, coronary artery disease, hypertension, diabetes, bronchitis, renal disease. PAST SURGICAL HISTORY: Significant for coronary artery bypass graft. ALLERGIES: THE PATIENT IS ALLERGIC TO PENICILLIN, TYPE OF ALLERGY IS UNCLEAR. PHYSICAL EXAMINATION: VITAL SIGNS: The patient's temperature 97, blood pressure is 120/70, respiratory rate of 20, heart rate of 90. HEENT: Unremarkable. NECK: Supple. LUNGS: Have decreased breath sounds. HEART: Normal S1, S2. ABDOMEN: Soft and nontender. SKIN: Noted and reviewed. LABORATORY EXAMINATION: Reveals the patient's white count was at 12,600 on 09/06/2017, and this yesterday, came down to 10,000, hemoglobin of 10. Chemistries are noted with a creatinine of 2.1, blood sugars are elevated. Urinalysis is noted to have many bacteria, but 0 to 2 wbc's. Influenza is negative. Microbiology reveals the right arm cultures are pending, but the blood cultures and urine cultures are negative. ASSESSMENT AND PLAN: A 71-year-old male with history of diabetes, hypertension, coronary artery disease, Alzheimer's, dementia, bronchitis, renal disease, who is nonverbal, and now he is here with systemic inflammatory response syndrome with bullae and blisters and hemorrhagic cellulitis versus vasculitis and bullous pemphigoid, and currently on Zyvox and Azactam because of a penicillin allergy. We will continue to monitor the patient closely based on clinical response and we will check on the cultures of the arm which is pending. We will make further recommendations. Keith August MD [facility] # [id number]
--- NOTE | 2017-09-08 23:31 | CON ---
DATE: 09/08/2017 REASON FOR CONSULTATION: Chronic kidney disease stage III, elevated BNP. HISTORY OF PRESENT ILLNESS: A 71-year-old male known to us from recent evaluation on the medical side. The patient was evaluated for acute kidney injury. The patient was admitted because of lethargy, decreased p.o. intake. Also, found to have blisters on the right side of his face and right arm, right thigh. The patient thought to have systemic inflammatory response syndrome, with blisters and bullae. The patient started on IV antibiotics. He was also found to have acute kidney injury. His creatinine was 3.0 at the time of admission. Creatinine improved to 2.1. Suspect he has underlying chronic kidney disease. The patient does have advanced dementia. Currently, the patient is in the transitional care unit. He is receiving IV antibiotics. Today, his BNP is elevated. PAST MEDICAL AND SURGICAL HISTORY: Dementia, CAD, history of CABG, hypertension, NIDDM, chronic kidney disease stage III/IV, acute kidney injury, and systemic inflammatory response syndrome. FAMILY HISTORY: Noncontributory. SOCIAL HISTORY: No smoking, no alcohol use, no IV drug abuse. ALLERGIES: PENICILLIN. CURRENT MEDICATIONS: Azactam 1 g q.12, Coreg 3.125 mg , Ecotrin 81 mg, Exelon patch, insulin, mag oxide, Namenda, prednisone, Zyvox 600 mg q.12. REVIEW OF SYSTEMS: The patient is nonverbal. He is unable to cooperate with systems review. Does not appear to be in any kind of distress. PHYSICAL EXAMINATION: VITAL SIGNS: Blood pressure 158/88, heart rate 87, respiratory rate 20, temperature 98.6. HEENT: Normocephalic, atraumatic, no pallor. NECK: Supple, no JVD. LUNGS: Bilateral equal air entry, no rales. CARDIAC: S2 and S2, regular rate and rhythm, no murmur, no rub. ABDOMEN: Soft, nondistended, nontender, bowel sounds present. EXTREMITIES: Dressing on the side of the face, right upper arm, right thigh. INTAKE AND OUTPUT: 500/550. LABORATORY DATA: BNP 13:40, creatinine 2.1, BUN 47, PTH 26, phosphorus 3.7, hemoglobin 10.4, ESR 8. ASSESSMENT: 1. Acute kidney injury superimposed on chronic kidney disease stage III/IV, resolved acute kidney injury, suspect baseline creatinine around 2.0 to 2.1. 2. Sepsis/inflammatory response syndrome with blisters. 3. Yac-hcoruum-msqaonicj diabetes mellitus. 4. Hypertension. 5. History of coronary artery disease. 6. Alzheimer's. PLAN: 1. Continue antibiotics as per ID recommendations. 2. Followup workup ordered. 3. Monitor fingersticks and continue insulin coverage. 4. Monitor labs two to three times a week. Thank you for the courtesy of this consultation. We will follow this patient closely with you. Nabila Crook MD
[2017-09-09] MEDS: Insulin Detemir 100 units/ml Vial (Levemir) SC SCH ×2 (06:51→21:54)
[2017-09-09] MEDS: Insulin Reg-MEDIUM-Coverage SC SCH ×3 (06:51→21:52)
[2017-09-09 06:52] LABS: BASO # 0.01 K/mm3 (0.0-2.0); BASO % 0.1 % (0.0-3.0); EOS # 0.1 (0.0-0.7); EOS % 1.1 % (1.5-5.0); GRAN # 5.94 (1.4-6.5); GRAN % 72.7 % (50.0-68.0); HEMATOCRIT 28.3 % (42.0-52.0); LYMPH # 1.6 (1.2-3.4); LYMPH % 19.6 % (22.0-35.0); MEAN CELL VOLUME 92.8 fl (80.0-105.0); MEAN CORPUSCULAR HEMOGLOBIN 30.8 pg (25.0-35.0); MEAN CORPUSCULAR HGB CONC 33.2 g/dl (31.0-37.0); MEAN PLATELET VOLUME 11.5 fl (7.0-11.0); MONO # 0.5 (0.1-0.6); MONO % 6.5 % (1.0-6.0); RED CELL DISTRIBUTION WIDTH 12.7 % (11.5-14.5); WHITE BLOOD COUNT 8.2 10^3/ul (4.5-11.0)
[2017-09-09 07:17] LABS: BILIRUBIN,TOTAL 0.4 mg/dL (0.2-1.3); CALCIUM 8.6 mg/dL (8.4-10.5); POTASSIUM 3.7 mmol/L (3.6-5.0); TOTAL PROTEIN 5.1 g/dL (5.8-8.3)
[2017-09-09] MEDS: Aztreonam 1 Gm in NS 100mL 100 ML IV SCH (09:15)
[2017-09-09] MEDS: Magnesium Oxide 400 mg Tab UD PO SCH ×2 (09:17→18:20)
[2017-09-09] MEDS: Linezolid 600 mg in D5W 300 ml 600 MG/300 ML BAG IVPB SCH ×2 (18:19→21:55)
--- NOTE | 2017-09-09 18:54 | PN ---
DATE: 09/09/2017 SUBJECTIVE: The patient is seen lying in bed. He is nonverbal. He is eating lunch. is at bedside. She reports some foul-smelling discharge from one of the blisters on the medial aspect of the right upper arm. She denies any fever, chills. PHYSICAL EXAMINATION: GENERAL: Elderly male, lying in bed. VITAL SIGNS: Blood pressure 139/82, heart rate 97, respiratory rate 18, temperature 98.9. HEENT: Normocephalic, atraumatic. NECK: Supple, no JVD. LUNGS: Bilateral equal entry, no rales. CARDIAC: S1, S2, regular rate and rhythm, no murmur, no rub. ABDOMEN: Soft, nondistended, nontender, bowel sounds present. EXTREMITIES: No lower extremity edema. Multiple dressings on the right upper arm, right thigh. INTAKE AND OUTPUT: 400/900. LABORATORY DATA: WBC 8, hemoglobin 9, hematocrit 28, platelets 131. Sodium 139, potassium 3.7, chloride 110, CO2 20, BUN 52, creatinine 2.1, glucose 215, calcium 8.6, AST 40, ALT 39, albumin 2.6. Urine culture no growth. Blood culture no growth. Wound culture no growth. CURRENT MEDICATIONS: Azactam 1 g q.12, Coreg 3.125 daily, Ecotrin, Exelon, insulin, mag oxide, Namenda, prednisone, Zyvox. ASSESSMENT AND PLAN: 1. Acute kidney injury superimposed on chronic kidney disease stage 3, resolved acute kidney injury. 2. Systemic inflammatory response syndrome with bullae and blisters. 3. Dzv-yqenzmd-wwxiiotxv diabetes mellitus. 4. Hypertension. 5. Coronary artery disease. 6. Dementia. PLAN: 1. Continue antibiotics as per ID recommendations. Currently, he is on Zyvox plus Azactam. 2. Monitor labs 2 or 3 times a week. 3. Stable renal function. 4. Continue insulin coverage. 5. Continue current antihypertensives. Nabila Crook MD
--- NOTE | 2017-09-09 20:40 | PN ---
DATE: 09/09/2017 SUBJECTIVE: The patient is seen in bed, in no acute distress, and nontoxic. PHYSICAL EXAMINATION: GENERAL: The patient is seen in bed. VITAL SIGNS: Temperature is 99, blood pressure is 130/80, and respiratory rate of 16. HEENT: Unremarkable. NECK: Supple. LUNGS: Have decreased breath sounds. HEART: Normal S1 and S2. ABDOMEN: Soft and nontender. No rebound. No guarding. No masses. LABORATORY DATA: Reveals a white count of 8.2, hemoglobin of 9, and platelets of 131. Chemistries are noted. The patient's examination of the ulcer is much improved. ASSESSMENT AND PLAN: A 71-year-old male who is nonverbal with diabetes, hypertension, coronary artery disease, Alzheimer's dementia, bronchitis, and renal disease who was admitted with systemic inflammatory response syndrome with blisters, hemorrhagic cellulitis, vasculitis, and bullous pemphigoid, on Zyvox and Azactam. We will discontinue the Azactam and we will continue the Zyvox for now. The patient is also on prednisone, started by Dr. Dorman. We will follow closely with you. Keith August MD
[2017-09-10] MEDS ORDERED: Linezolid 600 mg in D5W 300 ml 600 MG/300 ML BAG IVPB SCH (06:00)
[2017-09-10] MEDS: Insulin Reg-MEDIUM-Coverage SC SCH ×4 (06:45→22:07)
[2017-09-10] MEDS: Insulin Detemir 100 units/ml Vial (Levemir) SC SCH ×2 (06:46→22:07)
[2017-09-10] MEDS: Magnesium Oxide 400 mg Tab UD PO SCH ×2 (10:14→17:33)
--- NOTE | 2017-09-10 12:31 | PN ---
DATE: SUBJECTIVE: Kade is a 71-year-old white male transferred to TCU from [facility]. He was admitted with dehydration, azotemia, blistering disease of the skin of unknown origin, xjh-hcrgzaq-euchfrwvs diabetes mellitus, medical renal disease. PHYSICAL EXAMINATION: VITAL SIGNS: He is afebrile, blood pressure 148/82, temperature 98.2. LABORATORY DATA: BUN and creatinine are stable at 52 and 2.1. Blood sugar has been controlled. PLAN: The patient is doing physical therapy, occupational therapy. He is on prednisone for his blistering skin disease. We will continue his physical therapy and occupational therapy. Jama Dorman MD
--- NOTE | 2017-09-10 12:33 | PN ---
DATE: 09/10/2017 SUBJECTIVE: The patient is in bed in no acute distress, nontoxic. PHYSICAL EXAMINATION: VITAL SIGNS: Temperature is 98, blood pressure is 130/80, and respiratory rate of 18. HEENT: Unremarkable. NECK: Supple. LUNGS: Have decreased breath sounds. HEART: Normal S1 and S2. ABDOMEN: Soft and nontender. No rebound or guarding. No masses. LABORATORY DATA: Reveals white count of 8, hemoglobin of 9, and platelets of 131. Chemistries are noted to creatinine of 2.1. Review of orders reveals the patient is on Zyvox and prednisone. ASSESSMENT AND PLAN: A 71-year-old male who is nonverbal, diabetic, hypertensive, coronary artery disease, Alzheimer's dementia, bronchitis, renal disease, systemic inflammatory response syndrome, hemorrhagic cellulitis and all these resolved is to clean wound. We will discontinue the Zyvox at this point and no further antibiotics necessary. Keith August MD
[2017-09-11] MEDS: Insulin Reg-MEDIUM-Coverage SC SCH ×4 (06:39→22:35)
[2017-09-11] MEDS: Insulin Detemir 100 units/ml Vial (Levemir) SC SCH ×2 (06:40→22:36)
[2017-09-11 10:48] LABS: BASO # 0.02 K/mm3 (0.0-2.0); BASO % 0.2 % (0.0-3.0); EOS # 0.2 (0.0-0.7); EOS % 2.2 % (1.5-5.0); GRAN # 6.39 (1.4-6.5); GRAN % 69.1 % (50.0-68.0); HEMATOCRIT 32.8 % (42.0-52.0); LYMPH % 21.9 % (22.0-35.0); MEAN CELL VOLUME 91.4 fl (80.0-105.0); MEAN CORPUSCULAR HEMOGLOBIN 31.2 pg (25.0-35.0); MEAN CORPUSCULAR HGB CONC 34.1 g/dl (31.0-37.0); MEAN PLATELET VOLUME 11.1 fl (7.0-11.0); MONO # 0.6 (0.1-0.6); MONO % 6.6 % (1.0-6.0); RED CELL DISTRIBUTION WIDTH 12.6 % (11.5-14.5); WHITE BLOOD COUNT 9.2 10^3/ul (4.5-11.0)
[2017-09-11] MEDS: Magnesium Oxide 400 mg Tab UD PO SCH ×2 (11:19→17:23)
[2017-09-11 11:23] LABS: BILIRUBIN,TOTAL 0.6 mg/dL (0.2-1.3); POTASSIUM 3.7 mmol/L (3.6-5.0); TOTAL PROTEIN 5.9 g/dL (5.8-8.3)
--- NOTE | 2017-09-11 12:56 | PN ---
DATE: SUBJECTIVE: A 71-year-old white male with recent history of renal failure, which has resolved with hydration, is down to 52 and 2.1. PHYSICAL EXAMINATION: VITAL SIGNS: The patient is afebrile. Vital signs are stable. ASSESSMENT: Dementia, history of vesicular skin lesions, responding to prednisone. The patient is to continue physical therapy and occupational therapy. Continue to follow renal function. PLAN: Plan is to repeat blood work. Continue physical therapy, and possible skin biopsy. Jama Dorman MD
--- NOTE | 2017-09-12 00:26 | PN ---
DATE: 09/11/2017 SUBJECTIVE: The patient is seen in bed, in no acute distress, nontoxic. No fevers. No chills. PHYSICAL EXAMINATION: VITAL SIGNS: Temperature is 98, blood pressure is 120/70, and respiratory rate is 16. HEENT: Unremarkable. NECK: Supple. LUNGS: Have decreased breath sounds. HEART: Normal S1 and S2. ABDOMEN: Soft. LABORATORY EXAMINATION: Reveals the patient's white count is 9.2, hemoglobin of 11, platelet count 146. BUN of 44, creatinine of 1.9. ASSESSMENT AND PLAN: This is a 71-year-old male who is nonverbal, diabetic, hypertensive, coronary artery disease, Alzheimer's dementia, bronchitis, renal disease, systemic inflammatory response syndrome, hemorrhagic cellulitis, and has been treated with Zyvox and Azactam. Currently, now the patient is off of antibiotics. Dr. Dorman's note from this morning is reviewed. The patient was seen early this morning in room 315. We will follow with you. No evidence of infection at this point; however, the patient is at risk for developing nosocomial infections. Keith August MD
[2017-09-12] MEDS: Insulin Reg-MEDIUM-Coverage SC SCH ×5 (06:52→22:02)
[2017-09-12] MEDS: Insulin Detemir 100 units/ml Vial (Levemir) SC SCH ×2 (08:30→22:01)
--- NOTE | 2017-09-12 10:33 | RAD ---
HISTORY: coughing COMPARISON: No prior. TECHNIQUE: Chest PA and lateral FINDINGS: LUNGS: No active pulmonary disease. PLEURA: No significant pleural effusion identified. No pneumothorax apparent. CARDIOVASCULAR: Normal. OSSEOUS STRUCTURES: Sternal wires VISUALIZED UPPER ABDOMEN: Normal. OTHER FINDINGS: None. IMPRESSION: No active disease.
--- NOTE | 2017-09-12 10:43 | PN ---
DATE: 09/12/2017 SUBJECTIVE: The patient is in bed, in no acute distress, nontoxic. No fevers and chills. PHYSICAL EXAMINATION: VITAL SIGNS: Temperature is 98, blood pressure is 160/80, respiratory rate of 16. HEENT: Unremarkable. NECK: Supple. LUNGS: Decreased breath sounds. HEART: Normal S1, S2. ABDOMEN: Soft, nontender. LABORATORY EXAMINATION: Reveals a white count of 9.2, hemoglobin 11, platelets of 146. BUN of 44, creatinine of 1.9. Microbiology is noted. ASSESSMENT AND PLAN: A 71-year-old male was nonverbal, diabetic, hypertensive, coronary artery disease, Alzheimer's dementia, bronchitis, renal disease, systemic inflammatory response, hemorrhagic cellulitis, which is resolved and currently, the patient is off of antibiotics, afebrile. For possible biopsy and skin biopsy as per Dr. Dorman is appreciated. We will follow with you. Keith August MD
[2017-09-12] MEDS: Magnesium Oxide 400 mg Tab UD PO SCH ×2 (10:44→17:17)
--- NOTE | 2017-09-12 12:19 | PN ---
DATE: SUBJECTIVE: A 71-year-old male, dementia, jxf-wkwrcnq-lbexpqzsz diabetes mellitus admitted to the hospital with renal failure, acute renal insufficiency, which is improved with hydration is down to 44 and 1.9 from as high as 80 and 3.0, blood sugar 164, blood pressure is 165/85. OBJECTIVE: VITAL SIGNS: He is afebrile. Vital signs are stable. PLAN: Continue physical therapy and occupational therapy. Continue with hydration. Jama Dorman MD
[2017-09-12] MEDS ORDERED: Docusate-Senna 50 mg-8.6 mg Tab PO PRN (18:22)
[2017-09-13] MEDS: Insulin Reg-MEDIUM-Coverage SC SCH ×5 (06:36→21:32)
[2017-09-13] MEDS: Insulin Detemir 100 units/ml Vial (Levemir) SC SCH ×2 (06:37→21:33)
--- NOTE | 2017-09-13 09:24 | PN ---
DATE: 09/10/2017 Right arm wound culture, gram-positive cocci. CURRENT MEDICATIONS: Coreg 3.125 b.i.d., Ecotrin 81, Exelon patch, insulin, Levemir, mag oxide, Namenda, and prednisone. ASSESSMENT: 1. Gram-positive sepsis. 2. Resolved acute kidney injury. 3. Stable chronic kidney disease stage IV. 4. Ipu-sahluyl-demlcjoos diabetes mellitus. 5. Hypertension. 6. Dementia. PLAN: 1. Continue antibiotics as per ID recommendations. 2. Continue physical therapy. 3. Monitor fingersticks and continue insulin. 4. Blood pressure well controlled at this time. Nabila Crook MD
[2017-09-13] MEDS: Magnesium Oxide 400 mg Tab UD PO SCH ×2 (10:17→17:42)
--- NOTE | 2017-09-13 13:07 | PN ---
A 71-year-old male with advanced dementia, hypertension, and diabetes. The patient was found to have renal failure, acute renal insufficiency on top of chronic . He is admitted to the hospital. BUN and creatinine were 80 and 3.2 and they are down to 44 and 1.9 on hydration. The patient's blood sugars are well controlled. His blood pressure is currently 135/75, blood sugar is 164. The patient is afebrile. Vital signs are stable. He is becoming more awake and alert and doing physical therapy and occupational therapy. He will continue this course until he is discharged home on 09/15/2017. Jama Dorman MD
[2017-09-13 14:30] VITALS: RESP 18
[2017-09-14] MEDS: Insulin Reg-MEDIUM-Coverage SC SCH ×4 (07:40→22:30)
[2017-09-14] MEDS: Insulin Detemir 100 units/ml Vial (Levemir) SC SCH ×2 (08:10→22:36)
[2017-09-14] MEDS: Magnesium Oxide 400 mg Tab UD PO SCH ×3 (11:00→17:42)
--- NOTE | 2017-09-14 12:39 | PN ---
DATE: 09/14/2017 SUBJECTIVE: The patient is seen early this morning. No fevers and chills. PHYSICAL EXAMINATION: VITAL SIGNS: Temperature is 98, blood pressure is 120/70, respiratory rate of 16. HEENT: Unremarkable. NECK: Supple. LUNGS: Have decreased breath sounds. HEART: Normal S1, S2. ABDOMEN: Soft, nontender. LABORATORY DATA: Reveals a white count of 9.2, hemoglobin of 11 and BUN of 44, creatinine of 1.9. ASSESSMENT/PLAN: This is a 71-year-old male who is nonverbal, diabetic, hypertensive, coronary artery disease, Alzheimer dementia, bronchitis, renal disease, systemic inflammatory response syndrome, hemorrhagic cyst, cellulitis and currently off of antibiotics, afebrile. The patient is for possible skin biopsy as an outpatient. Keith August MD
[2017-09-14 16:39] VITALS: TEMP 97.9; O2SAT 98
--- NOTE | 2017-09-14 18:51 | PN ---
DATE: SUBJECTIVE: The patient is currently seen, lying comfortable in bed, in the TCU. Today is his ssxn-cr-qslk day in the TCU. He is being discharged tomorrow. The patient has completed a course of antibiotics for an infectious bullous lesion over his right upper extremity. MEDICATIONS: Medication list reviewed. The patient is currently on Coreg, Ecotrin, Exelon, sliding scale insulin, Levemir, magnesium oxide, Namenda, prednisone, and Senokot. OBJECTIVE: VITAL SIGNS: Blood pressure 125/60, pulse 72, respiratory rate 18 with a temperature of 98. HEENT: Shows him to be normocephalic. Conjunctivae are pink. Sclerae nonicteric. NECK: Supple. No neck vein distention. CHEST: Clear to auscultation and percussion. CARDIOVASCULAR: Regular rate rhythm without murmurs, rubs, or gallops. ABDOMEN: Soft. Bowel sounds normal. No rebound. No guarding. No masses. No abdominal distention. EXTREMITIES: Right upper extremity dressings over ulcerations and bullous lesions in around the antecubital fossa. No lower extremity cyanosis, clubbing, or edema. LABORATORY DATA AND IMAGING: No recent labs. CBC from 09/11/2017 shows a white cell count of 9.2, hemoglobin improved at 11.2 with a platelet count of 146,000. Chemistries from 09/11/2017 show a BUN of 44 with a creatinine of 1.9. This is a significant improvement from his BUN of 82. Creatinine is down from 3.0-1.9 which is likely his baseline. MICROBIOLOGY: Right arm cultures are positive for Enterococcus faecalis. Blood cultures were negative. ASSESSMENT: 1. Acute renal failure, superimposed on chronic kidney disease stage III. This is in the setting of the patient having had a creatinine clearance of 38 mL per minute with 1.25 g of protein in the urine. Likely, all secondary to longstanding diabetes. 2. Bullous rash, right upper extremity, infected with Enterococcus. The patient has completed a course of IV antibiotic therapy. 3. Status post mild hypernatremia and hyperkalemia. These have resolved. Last sodium is 135 with a potassium of 3.7. 4. History of arteriosclerotic heart disease, currently stable. The patient continues on current cardiac medicines. 5. History of severe progressive dementia in the setting of Alzheimer's disease. The patient appears to be somewhat alert, but is not answering any questions today. 6. History of hyperlipidemia, on statin therapy in the outpatient setting. He should likely resume this. 7. History of noninsulin-dependent diabetes mellitus, currently on insulin. PLAN: 1. The patient is likely being discharged tomorrow. He will likely need further post-hospitalization wound care. He has completed a course of antibiotic therapy. 2. Re-assured the patient's family that his chronic kidney disease is likely stable in nature. Creatinine has fallen to 1.9 and barring exposure to any nephrotoxic agents. The patient will probably maintain his creatinine in this range for the time being. 3. The patient will follow up with as an outpatient, and if his kidney function should happen to worsen, we could see him in consultation. Bravo Carr MD
[2017-09-15] MEDS: Insulin Reg-MEDIUM-Coverage SC SCH (06:53)
[2017-09-15] MEDS: Insulin Detemir 100 units/ml Vial (Levemir) SC SCH (06:53)
--- NOTE | 2017-09-15 08:18 | PN ---
DATE: 09/14/2017 SUBJECTIVE: A 71-year-old white male who has been in hospital with renal failure, dehydration, dementia, blistering skin disease. The patient has done well with physical therapy and occupational therapy. He is starting to speak somewhat. BUN and creatinine are improved, now down to 44 and 1.9 from 80 and 3.0. Potassium 3.7, bicarbonate is 20. The patient is more ambulatory with physical therapy. He has healing of his previous blistering sores. He is on a tapering dose of prednisone and insulin for sugar. He will be monitored as an outpatient. Vital signs are stable. The patient will be discharged home most likely in the morning. Continue therapy with at home and continue controlling his blood sugar and blood pressure at home. Jama Dorman MD
[2017-09-15] MEDS: Magnesium Oxide 400 mg Tab UD PO SCH (11:09)
[2017-09-15 11:12] VITALS: BP 151/78; PULSE 78
--- NOTE | 2017-09-16 01:15 | PN ---
DATE: 09/15/2017 SUBJECTIVE: The patient is in bed, in no acute distress. He was seen early this morning in room #315. PHYSICAL EXAMINATION: VITAL SIGNS: On exam, temperature is 97, blood pressure is 130/80 and respiratory rate of 16. HEENT: Unremarkable. NECK: Supple. LUNGS: Have decreased breath sounds. HEART: Normal S1 and S2. ABDOMEN: Soft and nontender. LABORATORY EXAMINATION: Reveals a white count of 9.2, hemoglobin of 11 and platelets of 146. Chemistries are noted. ASSESSMENT AND PLAN: This is a 71-year-old male who is seen early this morning in room 315 who is nonverbal, has diabetic, hypertensive, , Alzheimer's dementia with bronchitis, and cellulitis. Currently off of antibiotics. Afebrile. Possible skin biopsy as outpatient. We will follow with you. Keith August MD
--- NOTE | 2017-09-16 06:14 | DS ---
HISTORY OF PRESENT ILLNESS: A 71-year-old male admitted to TCU from [facility] after having an episode of acute renal failure. The patient's renal function has returned to baseline. He is now at . Blood sugar is 164. He is insulin-dependent diabetic. Potassium is at 3.7. H and H are within normal limits. The patient did attempt physical therapy, occupational therapy. He also was treated for a blistering skin disease, which has resolved with prednisone. PLAN: Plan is to continue with . Continue open wound treatment for his blistering lesions and also to control his blood sugar and continue to follow his renal function. Final discharge diagnoses of the patient will be deconditioning, blistering skin rash, acute renal failure, and diabetes mellitus, hypertension. Jama Dorman MD
--- NOTE | 2017-09-16 10:03 | PN ---
DATE: 09/13/2017 SUBJECTIVE: The patient is in bed, in no acute distress, nontoxic. OBJECTIVE: VITAL SIGNS: On exam, temperature is 97, blood pressure is 140/70, respiratory rate of 16. HEENT: Unremarkable. NECK: Supple. LUNGS: Have decreased breath sounds. HEART: Normal S1, S2. ABDOMEN: Soft, nontender. LABORATORY EXAMINATION: Reveals a white count of 9.2, hemoglobin of 11, platelets of 146, and creatinine is 1.9. Dr. Dorman's note from this morning is appreciated. ASSESSMENT AND PLAN: This is a 71-year-old male who is nonverbal, has diabetes mellitus, hypertensive, coronary disease, Alzheimer's dementia, bronchitis, renal disease, systemic inflammatory response syndrome, hemorrhagic cellulitis which is resolved, possible skin biopsy as outpatient, follow closely with you. Currently off of antibiotics. The patient is at risk for developing nosocomial infection. Keith August MD
--- NOTE | 2017-09-16 10:06 | PN ---
DATE: 09/13/2017 SUBJECTIVE: The patient is seen lying in bed. He is comfortable. PHYSICAL EXAMINATION: GENERAL: Elderly male, lying in bed. VITAL SIGNS: Blood pressure 149/79, heart rate 87, respiratory rate 18, temperature 97.4. HEENT: Normocephalic, atraumatic. NECK: Supple, no JVD. LUNGS: Bilateral equal air entry. CARDIAC: S1 and S2, regular rate and rhythm, no murmur, no rub. ABDOMEN: Soft, nondistended, nontender, bowel sounds present. EXTREMITIES: No lower extremity edema. LABORATORY DATA: WBC 9, hemoglobin 11.2, hematocrit 33, platelets 146. Sodium 135, potassium 3.7, chloride 106, CO2 of 20, BUN 44, creatinine 1.9, glucose 164, calcium 9.0, AST 57, ALT 60, albumin 3.0. CURRENT MEDICATIONS: List reviewed. ASSESSMENT: 1. Resolved acute kidney injury. 2. Underlying chronic kidney disease stage 3/4. 3. Status post septic inflammatory response syndrome. 4. Yfk-qttemqc-rvdmagvyv diabetes mellitus. 5. Hypertension. 6. Coronary artery disease. 7. Dementia. PLAN: 1. Stable renal standpoint. 2. Continue antibiotics as per ID recommendations. 3. Physical therapy. 4. Avoid nephrotoxins. Nabila Crook MD
== END 2017-09-15 11:36 | disposition home or self-care (01) | DRG 945 ==
LOC: TRCU 17:47
PROVIDERS: ADMIT Internal Medicine; ATTEND Internal Medicine
PROC: 3E03328 Introduction of Oxazolidinones into Peripheral Vein, Percutaneous Approach (ICD-10-PCS; 2017-09-07)
PROC: F07Z9FZ Gait Training/Functional Ambulation Treatment using Assistive, Adaptive, Supportive or Protective Equipment (ICD-10-PCS; principal; 2017-09-08)
PROC: F08Z4FZ Home Management Treatment using Assistive, Adaptive, Supportive or Protective Equipment (ICD-10-PCS; 2017-09-08)
DX: R53.1 Weakness (principal); N17.9 Acute kidney failure, unspecified; R65.11 Systemic inflammatory response syndrome (SIRS) of non-infectious origin with acute organ dysfunction; Z79.2 Long term (current) use of antibiotics; E11.22 Type 2 diabetes mellitus with diabetic chronic kidney disease; N18.4 Chronic kidney disease, stage 4 (severe); G30.9 Alzheimer's disease, unspecified; F02.80 Dementia in other diseases classified elsewhere, unspecified severity, without behavioral disturbance, psychotic disturbance, mood disturbance, and anxiety; I25.10 Atherosclerotic heart disease of native coronary artery without angina pectoris; E78.5 Hyperlipidemia, unspecified; E86.0 Dehydration; I12.9 Hypertensive chronic kidney disease with stage 1 through stage 4 chronic kidney disease, or unspecified chronic kidney disease; S40.821D Blister (nonthermal) of right upper arm, subsequent encounter; Z79.4 Long term (current) use of insulin; Z95.1 Presence of aortocoronary bypass graft; Z88.0 Allergy status to penicillin

== ENCOUNTER 2017-09-25 13:33 | Inpatient (IN) | payer MEDICARE, OTHER ==
[2017-09-25 13:34] VITALS: BMI 20.8
[2017-09-25] MEDS ORDERED: Sodium Chloride 0.9% 1,000 ML IV STA ×2 (14:14→15:39)
--- NOTE | 2017-09-25 14:33 | ED PDOC ---
Arrival/HPI - General Chief Complaint: High Blood Sugar Time Seen by Provider: 09/25/17 13:48 Historian: Spouse - History of Present Illness Narrative History of Present Illness (Text): 09/25/17 14:04 A 71 year old male, whose past medical history includes Alzheimer, triple bypass , diabetes, dementia, and hypertension, presents to the emergency department for high blood sugar levels. The patient's states that she has the patient on a strict routine diet that will not effect his blood sugar, but lately his blood sugar has not been able to control. The patient has been weaker than usual , but denies any fever, chest pain, vomiting, or any other symptoms. The patient 's notes that the patient has a wound to his left arm and to his chest. She admits to giving the patient 30 units of insulin this morning around 09:00. Time/Duration: Prior to Arrival Symptom Onset: Sudden Symptom Course: Unchanged Activities at Onset: Rest Context: Home Past Medical History - Provider Review Nursing Documentation Reviewed: Yes - Infectious Disease Hx of Infectious Diseases: None - Cardiac Hx Cardiac Disorders: Yes Hx Hypertension: Yes - Pulmonary Hx Respiratory Disorders: Yes Hx Bronchitis: Yes - Neurological Hx Neurological Disorder: Yes Hx Alzheimer's Disease: Yes - HEENT Hx HEENT Disorder: No - Renal Hx Renal Disorder: No - Endocrine/Metabolic Hx Diabetes Mellitus Type 2: Yes - Hematological/Oncological Hx Blood Disorders: No - Integumentary Hx Dermatological Disorder: Yes Other/Comment: MULTIPLE OPENED BLISTER-RIGHT PINNA,RIGHT INNER LATERAL ARM, RIGHT UNDER THE BREAST,RIGHT LATERAL SIDE OF BIG TOE, LEFT HEEL PRESSURE ULCER WITH NECROTIC TISSUE,. BILATERAL LOWER BUTTOCKS WITH IASD,SLOUGHED SKIN. - Musculoskeletal/Rheumatological Hx Falls: Yes - Gastrointestinal Hx Gastrointestinal Disorders: No - Genitourinary/Gynecological Hx Reproductive Disorders: No - Psychiatric Hx Psychophysiologic Disorder: Yes Hx Depression: Yes Hx Substance Use: No - Surgical History Other/Comment: tripple bypass - Anesthesia Hx Anesthesia: Yes Hx Anesthesia Reactions: No Family/Social History - Physician Review Nursing Documentation Reviewed: Yes Family/Social History: No Known Family HX Smoking Status: Never Smoked Hx Alcohol Use: No Hx Substance Use: No Allergies/Home Meds Allergies/Adverse Reactions: Allergies Penicillins Allergy (Verified 09/25/17 13:58) ANAPHYLAXIS Home Medications: Home Meds Medication Instructions Recorded Confirmed Aspirin [Adult Low Dose Aspirin EC] 81 mg PO DAILY 09/25/17 09/25/17 Carvedilol [Coreg] 3.125 mg PO BID 09/25/17 09/26/17 Pantoprazole Sodium [Protonix] 40 mg PO DAILY 09/25/17 09/25/17 Magnesium Oxide [Magnesium] 400 mg PO DAILY 09/26/17 09/26/17 Rivastigmine 9.5 mg/24 hr [Exelon 9.5 mg DAILY 09/26/17 09/26/17 9.5 mg/24 hr Patch] amLODIPine [Norvasc] 10 mg PO DAILY 09/26/17 09/26/17 Review of Systems - Physician Review All systems were reviewed & negative as marked: Yes - Review of Systems Constitutional: Other (high blood sugar ). absent: Fevers Cardiovascular: absent: Chest Pain Gastrointestinal: absent: Vomiting Physical Exam Vital Signs Reviewed: Yes Vital Signs Temp Pulse Resp BP Pulse Ox 09/25/17 21:45 109 H 18 129/76 97 09/25/17 18:37 105 H 16 130/73 98 09/25/17 13:55 98.5 F 112 H 17 108/73 100 Temperature: Afebrile Blood Pressure: Normal Pulse: Tachycardic Respiratory Rate: Normal Appearance: Positive for: Well-Appearing, Non-Toxic, Comfortable Pain Distress: None Mental Status: Positive for: Alert and Oriented X 3 Finger Stick Blood Glucose: 495 - Systems Exam Head: Present: Atraumatic, Normocephalic Pupils: Present: PERRL Extroacular Muscles: Present: EOMI Conjunctiva: Present: Normal Mouth: Present: Moist Mucous Membranes Neck: Present: Normal Range of Motion Respiratory/Chest: Present: Clear to Auscultation, Good Air Exchange. No: Respiratory Distress, Accessory Muscle Use Cardiovascular: Present: Regular Rate and Rhythm, Normal S1, S2. No: Murmurs Abdomen: Present: Normal Bowel Sounds. No: Tenderness, Distention, Peritoneal Signs Back: Present: Normal Inspection Upper Extremity: Present: Normal Inspection. No: Cyanosis, Edema Lower Extremity: Present: Swelling (left leg swelling ). No: Edema Neurological: Present: GCS=15, CN II-XII Intact, Motor Func Grossly Intact, Normal Sensory Function, Normal Cerebellar Funct, Other (the patient responds to painful stimuli ). No: Gait Normal (relatively immobile ) Skin: Present: Warm, Dry, Normal Color, Laceration (dry necrotic skin lesion to the anterior chest wall, right anticubital fossa has a dry no discharge lesion that has surrounding inflammation changes). No: Rashes Psychiatric: Present: Alert, Oriented x 3, Normal Insight, Normal Concentration Medical Decision Making ED Course and Treatment: 09/25/17 14:41 Impression: A 71 year old male with high blood sugar. Differential Diagnosis included but are not limited to: Plan: -- Labs -- IV Fluids -- Left lower extremity US -- Reassess and disposition Progress Notes: - Lab Interpretations Microbiology Results: Microbiology Results 09/25/17 14:40 Blood-Venous Blood Culture - Final NO GROWTH AFTER 5 DAYS 09/25/17 14:40 Blood-Venous Gram Stain - Final TEST NOT PERFORMED 09/25/17 14:20 Blood-Venous Blood Culture - Final NO GROWTH AFTER 5 DAYS 09/25/17 14:20 Blood-Venous Gram Stain - Final TEST NOT PERFORMED Lab Results: 09/25/17 14:30 09/25/17 14:30 Lab Results 09/25/17 17:48: POC Glucose (mg/dL) 339 H 09/25/17 16:35: POC Glucose (mg/dL) 405 H* 09/25/17 16:35: pCO2 25 L, pO2 73.0 L, HCO3 17.8 L, ABG pH 7.46 H, ABG Total CO2 18.6 L, ABG O2 Saturation 97.6, ABG O2 Content 13.0 L, ABG Base Excess -4.9 L, ABG Hemoglobin 9.7 L, ABG Carboxyhemoglobin 2.4 H, POC ABG HHb (Measured) 2.3 , ABG Methemoglobin 1.0, ABG O2 Capacity 13.3 L, Hgb O2 Saturation 94.4 L, FiO2 21.0 09/25/17 14:30: PT 13.2 H, INR 1.21 H 09/25/17 14:30: Sodium 126 L, Potassium 5.1 H, Chloride 93 L, Carbon Dioxide 20 L, Anion Gap 18, BUN 56 H, Creatinine 2.3 H, Est GFR ( Amer) 34, Est GFR (Non-Af Amer) 28, Random Glucose 577 H* D, Calcium 9.4, Total Bilirubin 1.0, AST 41, ALT 45, Alkaline Phosphatase 190 H D, Total Protein 6.4, Albumin 3.5, Globulin 2.9, Albumin/Globulin Ratio 1.2 09/25/17 14:30: WBC 11.7 H D, RBC 3.58, Hgb 11.0 L, Hct 34.2 L, MCV 95.5 D, MCH 30.7, MCHC 32.2, RDW 13.5, Plt Count 121, MPV 10.8, Gran % 82.9 H, Lymph % ( Auto) 10.5 L, Harney % (Auto) 6.1 H, Eos % (Auto) 0.3 L, Baso % (Auto) 0.2, Gran # 9.70 H, Lymph # 1.2, Harney # 0.7 H, Eos # 0.0, Baso # 0.02 09/25/17 13:49: POC Glucose (mg/dL) 495 H* - RAD Interpretation Radiology Orders: 09/25/17 14:12 DUPLEX LOWER EXTRM VEIN LEFT [US] Stat - Medication Orders Current Medication Orders: Acetaminophen (Tylenol 650 Mg Supp) 650 mg RC Q4H PRN PRN Reason: Fever >100.4 F Last Admin: 10/01/17 12:46 Dose: 650 mg MAR Pain/Vitals Document 10/01/17 12:46 MCV (Rec: 10/01/17 12:46 MCV [id number]) Pain Reassessment Is This A Pain ReAssessment? No Vitals Temperature (97.6 F-99.6 F) 100.8 F Temperature Source Rectal Amlodipine Besylate (Norvasc) 10 mg PO DAILY [facility] Last Admin: 10/02/17 09:03 Dose: 10 mg MAR Blood Pressure Document 10/02/17 09:03 DLL (Rec: 10/02/17 09:03 DLL [id number]) Blood Pressure Blood Pressure (100/60-150/90) 148/85 Apixaban (Eliquis) 5 mg PO BID [facility] Last Admin: 10/02/17 18:05 Dose: 5 mg Aspirin (Ecotrin) 81 mg PO DAILY [facility] Last Admin: 10/02/17 09:03 Dose: 81 mg Carvedilol (Coreg) 3.125 mg PO BID [facility] Last Admin: 10/02/17 18:05 Dose: 3.125 mg MAR Pulse and Blood Pressure Document 10/02/17 18:05 DLL (Rec: 10/02/17 18:07 DLL [id number]) Pulse Pulse Rate (60-90) 78 Blood Pressure Blood Pressure (100/60-150/90) 110/64 Collagenase (Santyl) 0 gm TOP DAILY [facility] Last Admin: 10/02/17 09:05 Dose: 1 unit Sodium Chloride (Sodium Chloride 0.9%) 1,000 mls @ 100 mls/hr IV .Q10H [facility] Last Admin: 10/02/17 22:47 Dose: 100 mls/hr eMAR Start Stop Document 10/02/17 22:47 [employer] (Rec: 10/02/17 22:48 [employer] [id number]) Intravenous Solution Start Date 10/02/17 Start Time 22:48 End Date 10/03/17 Meropenem (Merrem Iv 1 Gm Premix) 50 mls @ 100 mls/hr IVPB Q12 [facility] Stop: 10/06/17 22:01 Last Admin: 10/02/17 21:14 Dose: 100 mls/hr eMAR Start Stop Document 10/02/17 21:14 [employer] (Rec: 10/02/17 21:14 [employer] [id number]) Intravenous Solution Start Date 10/02/17 Start Time 21:14 End Date 10/02/17 End time 21:44 Total Infusion Time 30 Linezolid (Zyvox 600mg/300ml D5w) 600 mg in 300 mls @ 200 mls/hr IVPB Q12 [facility] PRN Reason: Protocol Stop: 10/09/17 22:01 Last Admin: 10/02/17 22:48 Dose: 200 mls/hr eMAR Start Stop Document 10/02/17 22:48 [employer] (Rec: 10/02/17 22:48 [employer] [id number]) Intravenous Solution Start Date 10/02/17 Start Time 22:48 End Date 10/02/17 Insulin Human Lispro (Humalog Low) 0 units SC ACHS [facility] PRN Reason: Protocol Last Admin: 10/02/17 16:50 Dose: 3 units MAR Blood Glucose Document 10/02/17 16:50 DLL (Rec: 10/02/17 16:51 DLL [id number]) Blood Glucose Finger Stick Blood Glucose (70-120) 262 Subcutaneous Administrations Document 10/02/17 16:50 DLL (Rec: 10/02/17 16:51 DLL [id number]) Injection Site MAR Injection Site Left Arm Charges for Administration # of Subcutaneous Administrations 1 Insulin Lispro Protam/Lispro Human (Humalog Mix 75/25) 16 units SC ACB [facility] Last Admin: 10/02/17 07:57 Dose: 16 units MAR Blood Glucose Document 10/02/17 07:57 DLL (Rec: 10/02/17 07:58 DLL [id number]) Blood Glucose Finger Stick Blood Glucose (70-120) 135 Subcutaneous Administrations Document 10/02/17 07:57 DLL (Rec: 10/02/17 07:58 DLL [id number]) Injection Site MAR Injection Site Left Arm Charges for Administration # of Subcutaneous Administrations 1 Insulin Lispro Protam/Lispro Human (Humalog Mix 75/25) 10 units SC ACD [facility] Last Admin: 10/02/17 16:59 Dose: 10 units MAR Blood Glucose Document 10/02/17 16:59 DLL (Rec: 10/02/17 16:59 DLL [id number]) Blood Glucose Finger Stick Blood Glucose (70-120) 262 Subcutaneous Administrations Document 10/02/17 16:59 DLL (Rec: 10/02/17 16:59 DLL [id number]) Injection Site MAR Injection Site Left Arm Charges for Administration # of Subcutaneous Administrations 1 Magnesium Oxide (Mag-Ox) 400 mg PO DAILY [facility] Last Admin: 10/02/17 09:03 Dose: 400 mg Pantoprazole Sodium (Protonix Ec Tab) 40 mg PO DAILY [facility] Last Admin: 10/02/17 09:04 Dose: 40 mg Rivastigmine (Exelon 9.5 Mg/24 Hr Patch) 1 patch TD DAILY [facility] Last Admin: 10/02/17 09:04 Dose: 1 patch MAR Transdermal Patch Site Document 10/02/17 09:04 DLL (Rec: 10/02/17 09:04 DLL [id number]) Transdermal Patch Site Transdermal Patch Site Left Upper Chest Silver Sulfadiazine (Silvadene 1% 25 Gm) 1 gm TP DAILY [facility] Last Admin: 10/02/17 09:05 Dose: 1 gm Discontinued Medications Acetaminophen (Tylenol 650 Mg Supp) 650 mg STAT STA Stop: 09/29/17 21:48 Last Admin: 09/29/17 22:06 Dose: 650 mg MAR Pain/Vitals Document 09/29/17 22:06 BR (Rec: 09/29/17 22:06 BR [id number]) Presence of Pain Presence of Pain No Vitals Temperature (97.6 F-99.6 F) 103 F Temperature Source Axillary Collagenase (Santyl) 0 gm TOP DAILY [facility] Last Admin: 09/26/17 10:28 Dose: 1 applic Heparin Sodium (Porcine) (Heparin) 5,400 units 80 units/kg (5400 units) IV STAT STA PRN Reason: Protocol Stop: 09/25/17 18:02 Last Admin: 09/25/17 19:24 Dose: 5,400 units eMAR Start Stop Document 09/25/17 19:24 EQ (Rec: 09/25/17 19:24 EQ [id number]) Intravenous Solution Start Date 09/25/17 Start Time 19:24 MAR aPTT Document 09/25/17 19:24 EQ (Rec: 09/25/17 19:24 EQ [id number]) aPTT aPTT (secs) 13.2 Sodium Chloride (Sodium Chloride 0.9%) 1,000 mls @ 999 mls/hr IV .Q1H1M STA Stop: 09/25/17 15:14 Last Admin: 09/25/17 14:37 Dose: 999 mls/hr eMAR Start Stop Document 09/25/17 14:37 EQ (Rec: 09/25/17 14:37 EQ [id number]) Intravenous Solution Start Date 09/25/17 Start Time 14:37 Sodium Chloride (Sodium Chloride 0.9%) 1,000 mls @ 999 mls/hr IV .Q1H1M STA Stop: 09/25/17 16:39 Last Admin: 09/25/17 16:51 Dose: 999 mls/hr eMAR Start Stop Document 09/25/17 16:51 EQ (Rec: 09/25/17 16:51 EQ [id number]) Intravenous Solution Start Date 09/25/17 Start Time 16:51 Heparin Sodium/Sodium Chloride (Heparin 11072 Units/250ml 1/2 Normal Saline) 25 ,000 units in 250 mls @ 12.247 mls/hr IV .[id number] PRN; Protocol; 18 UNITS/KG/HR PRN Reason: ADJUST RATE PER PROTOCOL Last Titration: 09/25/17 21:51 Dose: 15 units/kg/hr, 10.206 mls/hr Titration Intervention Document 09/25/17 21:51 EQ (Rec: 09/25/17 21:53 EQ [id number]) Titration Intake Titration Intake 30 Cumulative Intake 30 Cumulative Intake (Rx) 30 Waste Amount 0 Container Volume 220 Titration Dosing Titration Dose 15 IV Rate 10.206 Intake/Decrease Decreased Cumulative Dose 3000 Meropenem 1 gm/ Sodium (Chloride) 100 mls @ 100 mls/hr IVPB Q12 [facility] PRN Reason: Protocol Stop: 10/06/17 22:01 Last Admin: 09/29/17 09:32 Dose: 100 mls/hr eMAR Start Stop Document 09/29/17 09:32 EP (Rec: 09/29/17 09:32 EP [id number]) Intravenous Solution Start Date 09/29/17 Start Time 09:32 End Date 09/29/17 End time 10:32 Total Infusion Time 60 Meropenem 1 gm/ Sodium (Chloride) 50 mls @ 100 mls/hr IVPB Q12 [facility] PRN Reason: Protocol Stop: 10/06/17 22:01 Last Admin: 10/01/17 21:43 Dose: 100 mls/hr eMAR Start Stop Document 10/01/17 21:43 MB (Rec: 10/01/17 21:43 MB [email or web address]) Intravenous Solution Start Date 10/01/17 Start Time 21:43 Vancomycin HCl 2 gm/ Sodium (Chloride) 500 mls @ 170 mls/hr IVPB ONCE ONE PRN Reason: Protocol Stop: 09/30/17 09:50 Last Admin: 09/30/17 09:16 Dose: 170 mls/hr eMAR Start Stop Document 09/30/17 09:16 EP (Rec: 09/30/17 09:17 EP [id number]) Intravenous Solution Start Date 09/30/17 Start Time 09:16 End Date 09/30/17 End time 12:13 Total Infusion Time 177 Meropenem (Merrem Iv 1 Gm Premix) 50 mls @ 100 mls/hr IVPB Q12 [facility] Insulin Detemir (Levemir) 20 unit SC ACBHS [facility] Last Admin: 09/26/17 21:35 Dose: 20 unit MAR Blood Glucose Document 09/26/17 21:35 [facility] (Rec: 09/26/17 21:35 [id number]) Blood Glucose Finger Stick Blood Glucose (70-120) 354 Subcutaneous Administrations Document 09/26/17 21:35 [employer] (Rec: 09/26/17 21:35 [id number]) Injection Site MAR Injection Site Right Arm Charges for Administration # of Subcutaneous Administrations 1 Insulin Detemir (Levemir) 26 unit SC HS [facility] Last Admin: 09/27/17 23:01 Dose: 26 unit MAR Blood Glucose Document 09/27/17 23:01 [employer] (Rec: 09/27/17 23:02 [id number]) Blood Glucose Finger Stick Blood Glucose (70-120) 237 Subcutaneous Administrations Document 09/27/17 23:01 [facility] (Rec: 09/27/17 23:02 [id number]) Injection Site MAR Injection Site Right Abdomen Charges for Administration # of Subcutaneous Administrations 1 Insulin Detemir (Levemir) 12 unit SC HS [facility] Last Admin: 09/28/17 23:15 Dose: 12 unit MAR Blood Glucose Document 09/28/17 23:15 MJ (Rec: 09/28/17 23:15 [id number]) Blood Glucose Finger Stick Blood Glucose (70-120) 146 Subcutaneous Administrations Document 09/28/17 23:15 MJ (Rec: 09/28/17 23:15 [id number]) Injection Site MAR Injection Site Right Arm Charges for Administration # of Subcutaneous Administrations 1 Insulin Detemir (Levemir) 6 unit SC [facility] Last Admin: 10/01/17 21:45 Dose: 6 unit MAR Blood Glucose Document 10/01/17 21:45 MB (Rec: 10/01/17 21:46 MB [id number]) Blood Glucose Finger Stick Blood Glucose (70-120) 259 Subcutaneous Administrations Document 10/01/17 21:45 MB (Rec: 10/01/17 21:46 MB [id number]) Injection Site MAR Injection Site Left Arm Charges for Administration # of Subcutaneous Administrations 1 Insulin Human Regular (Humulin R) 20 units SC STAT [facility] Stop: 09/25/17 15:30 Last Admin: 09/25/17 16:51 Dose: 20 units MAR Blood Glucose Document 09/25/17 16:51 EQ (Rec: 09/25/17 16:51 EQ [id number]) Blood Glucose Finger Stick Blood Glucose (70-120) 407 Subcutaneous Administrations Document 09/25/17 16:51 EQ (Rec: 09/25/17 16:51 EQ [id number]) Injection Site MAR Injection Site Left Arm Charges for Administration # of Subcutaneous Administrations 1 Insulin Human Regular (Humulin R Med) 0 units SC ACHS [facility] PRN Reason: Protocol Last Admin: 09/26/17 21:36 Dose: 3 units MAR Blood Glucose Document 09/26/17 21:36 [employer] (Rec: 09/26/17 21:37 [id number]) Blood Glucose Finger Stick Blood Glucose (70-120) 354 Subcutaneous Administrations Document 09/26/17 21:36 [employer] (Rec: 09/26/17 21:37 [id number]) Injection Site MAR Injection Site Left Abdomen Charges for Administration # of Subcutaneous Administrations 1 Insulin Lispro Protam/Lispro Human (Humalog Mix 75/25) 24 units SC ACB [facility] Last Admin: 09/28/17 11:07 Dose: Not Given Non-Admin Reason: Blood Sugar Parameter Insulin Lispro Protam/Lispro Human (Humalog Mix 75/25) 16 units SC ACD [facility] Last Admin: 09/28/17 17:58 Dose: 16 units MAR Blood Glucose Document 09/28/17 17:58 MCV (Rec: 09/28/17 17:58 MCV [id number]) Blood Glucose Finger Stick Blood Glucose (70-120) 176 Subcutaneous Administrations Document 09/28/17 17:58 MCV (Rec: 09/28/17 17:58 MCV [id number]) Charges for Administration # of Subcutaneous Administrations 1 Insulin Lispro Protam/Lispro Human (Humalog Mix 75/25) 18 units SC ACB [facility] Last Admin: 09/29/17 07:58 Dose: Not Given Non-Admin Reason: Blood Sugar Parameter MAR Blood Glucose Document 09/29/17 07:58 EP (Rec: 09/29/17 07:58 EP [id number]) Blood Glucose Finger Stick Blood Glucose (70-120) 74 Insulin Lispro Protam/Lispro Human (Humalog Mix 75/25) 10 units SC ACD [facility] Insulin Lispro Protam/Lispro Human (Humalog Mix 75/25) 14 units SC ACB [facility] Insulin Lispro Protam/Lispro Human (Humalog Mix 75/25) 8 units SC ACD [facility] Last Admin: 10/01/17 17:27 Dose: 8 u MAR Blood Glucose Document 10/01/17 17:27 MCV (Rec: 10/01/17 17:27 [id number]) Blood Glucose Finger Stick Blood Glucose (70-120) 257 Subcutaneous Administrations Document 10/01/17 17:27 MCV (Rec: 10/01/17 17:27 [id number]) Injection Site MAR Injection Site Left Arm Charges for Administration # of Subcutaneous Administrations 1 Insulin Lispro Protam/Lispro Human (Humalog Mix 75/25) 14 units SC ACB [facility] Last Admin: 10/01/17 08:38 Dose: Not Given Non-Admin Reason: Blood Sugar Parameter MAR Blood Glucose Document 10/01/17 08:38 MCV (Rec: 10/01/17 08:38 [id number] Blood Glucose Finger Stick Blood Glucose (70-120) 77 Morphine Sulfate (Morphine) 2 mg IVP ONCE ONE Stop: 09/26/17 06:33 Last Admin: 09/26/17 06:36 Dose: 2 mg MAR Pain Assessment Document 09/26/17 06:36 [facility] (Rec: 09/26/17 06:37 [id number]) Pain Reassessment Is this a pain reassessment? No Description Effects of Pain med prior to wound debridement IVP Administration Document 09/26/17 06:36 [facility] (Rec: 09/26/17 06:37 [id number]) Charges for Administration # of IVP Administrations 1 Oxycodone HCl (Oxycodone Immediate Release Tab) 10 mg PO Q6H PRN PRN Reason: Pain, moderate (4-7) - Scribe Statement The provider has reviewed the documentation as recorded by the Sujey Wagner Provider Scribe Attestation: All medical record entries made by the Scribe were at my direction and personally dictated by me. I have reviewed the chart and agree that the record accurately reflects my personal performance of the history, physical exam, medical decision making, and the department course for this patient. I have also personally directed, reviewed, and agree with the discharge instructions and disposition. Disposition/Present on Arrival - Present on Arrival Any Indicators Present on Arrival: No History of DVT/PE: No History of Uncontrolled Diabetes: No Urinary Catheter: Yes History of Decub. Ulcer: Yes History Surgical Site Infection Following: None - Disposition Have Diagnosis and Disposition been Completed?: Yes Diagnosis: Uncontrolled blood glucose, Cellulitis of right arm Disposition: HOSPITALIZED Disposition Time: 18:15 Patient Plan: Admission Patient Problems: Current Active Problems Problem Status Onset Hyperglycemia Acute Condition: STABLE
[2017-09-25 14:57] LABS: BASO # 0.02 K/mm3 (0.0-2.0); BASO % 0.2 % (0.0-3.0); EOS % 0.3 % (1.5-5.0); GRAN # 9.7 (1.4-6.5); GRAN % 82.9 % (50.0-68.0); LYMPH # 1.2 (1.2-3.4); LYMPH % 10.5 % (22.0-35.0); MEAN CELL VOLUME 95.5 fl (80.0-105.0); MEAN CORPUSCULAR HEMOGLOBIN 30.7 pg (25.0-35.0); MEAN CORPUSCULAR HGB CONC 32.2 g/dl (31.0-37.0); MEAN PLATELET VOLUME 10.8 fl (7.0-11.0); MONO # 0.7 (0.1-0.6); MONO % 6.1 % (1.0-6.0); RBC 3.58 10^6/uL (3.5-6.1); RED CELL DISTRIBUTION WIDTH 13.5 % (11.5-14.5); WHITE BLOOD COUNT 11.7 10^3/ul (4.5-11.0)
[2017-09-25 15:01] LABS: INR 1.21 (0.93-1.08); PROTHROMBIN TIME 13.2 SECONDS (9.4-12.5)
[2017-09-25] MEDS ORDERED: Insulin Regular 1 UNITS/0.01 ML ML SC STA (15:29)
[2017-09-25 15:36] LABS: ALB/GLOB RATIO 1.2 (1.1-1.8); ALBUMIN 3.5 g/dL (3.0-4.8); CALCIUM 9.4 mg/dL (8.4-10.5)
[2017-09-25 16:46] LABS: ARTERIAL BLOOD GAS HCO3 17.8 mmol/L (21-28); ARTERIAL BLOOD GAS HEMOGLOBIN 9.7 g/dL (11.7-17.4); ARTERIAL BLOOD GAS O2 CAPACITY 13.3 mL/dl (16-24); ARTERIAL BLOOD GAS O2 SAT 97.6 % (95-98); ARTERIAL BLOOD GAS PCO2 25 mm/Hg (35-45); ARTERIAL BLOOD GAS PH 7.46 (7.35-7.45); ARTERIAL BLOOD GAS TCO2 18.6 mmol.L (22-28)
[2017-09-25] MEDS ORDERED: Heparin25000 units/250ml 1/2NS 25,000 UNITS/250 ML BAG IV PRN (18:03)
[2017-09-25] MEDS: Insulin Reg-MEDIUM-Coverage SC SCH (23:12)
[2017-09-25] MEDS: Insulin Detemir 100 units/ml Vial (Levemir) SC SCH (23:13)
[2017-09-25] MEDS: Sodium Chloride 0.9% 1,000 ML IV SCH (23:13)
--- NOTE | 2017-09-26 00:56 | CP.PCM.CON ---
History of Present Illness - History of Present Illness History of Present Illness: General surgery consult note- Dr. Cloud 71M w/ PMHx of alzheimers, CAD, HTN admitted for LLE DVT that is currently being treated. Surgery was consulted for Right upper extremity wound and erythema, and right anterior chest wound. Patient is non-verbal and unable to obtain a full ROS PMH: Alzheimer, CAD, HTN, DM PSH: CABG ALL: PCN SocialHx: Review of Systems - Review of Systems All systems: reviewed and no additional remarkable complaints except - Constitutional Constitutional: As Per HPI Past Patient History - Infectious Disease Hx of Infectious Diseases: None - Past Social History Smoking Status: Former Smoker - CARDIAC Hx Cardiac Disorders: Yes Hx Hypertension: Yes - PULMONARY Hx Respiratory Disorders: Yes Hx Bronchitis: Yes - NEUROLOGICAL Hx Alzheimer's Disease: Yes - HEENT Hx HEENT Problems: No - RENAL Hx Chronic Kidney Disease: Yes - ENDOCRINE/METABOLIC Hx Diabetes Mellitus Type 2: Yes - HEMATOLOGICAL/ONCOLOGICAL Hx Blood Disorders: No - INTEGUMENTARY Hx Dermatological Problems: Yes Other/Comment: MULTIPLE OPENED BLISTER-RIGHT PINNA,RIGHT INNER LATERAL ARM, RIGHT UNDER THE BREAST,RIGHT LATERAL SIDE OF BIG TOE, LEFT HEEL PRESSURE ULCER WITH NECROTIC TISSUE,. BILATERAL LOWER BUTTOCKS WITH IASD,SLOUGHED SKIN. - MUSCULOSKELETAL/RHEUMATOLOGICAL Hx Falls: Yes - GASTROINTESTINAL Hx Gastrointestinal Disorders: No - GENITOURINARY/GYNECOLOGICAL Hx Genitourinary Disorders: Yes Hx Incontinence: Yes - PSYCHIATRIC Hx Psychophysiologic Disorder: Yes Hx Depression: Yes - SURGICAL HISTORY Other/Comment: tripple bypass - ANESTHESIA Hx Anesthesia: Yes Hx Anesthesia Reactions: No Meds Allergies/Adverse Reactions: Allergies Allergy/AdvReac Type Severity Reaction Status Date / Time Penicillins Allergy ANAPHYLAXIS Verified 09/25/17 13:58 - Medications Medications: Current Medications Apixaban (Eliquis) 5 mg PO BID [facility] Sodium Chloride (Sodium Chloride 0.9%) 1,000 mls @ 100 mls/hr IV .Q10H [facility] Last Admin: 09/25/17 23:13 Dose: 100 mls/hr Insulin Detemir (Levemir) 20 unit SC ACBHS [facility] Last Admin: 09/25/17 23:13 Dose: Not Given Insulin Human Regular (Humulin R Med) 0 units SC ACHS [facility] PRN Reason: Protocol Last Admin: 09/25/17 23:12 Dose: Not Given Physical Exam - Constitutional Appears: Non-toxic, No Acute Distress - Head Exam Head Exam: ATRAUMATIC - Eye Exam Eye Exam: EOMI. absent: Scleral icterus - ENT Exam ENT Exam: Mucous Membranes Moist - Respiratory Exam Respiratory Exam: NORMAL BREATHING PATTERN. absent: Accessory Muscle Use, Respiratory Distress - Cardiovascular Exam Cardiovascular Exam: +S1, +S2. absent: Bradycardia, Tachycardia - GI/Abdominal Exam GI & Abdominal Exam: Soft. absent: Distended, Firm, Guarding, Tenderness - Neurological Exam Neurological exam: Alert, Oriented x3 - Skin Skin Exam: Intact, Warm Additional comments: RUE unstagable wound, areas of necrotic tissue Chest- no ulceration, [id number] of necrotic skin Right heel pressure ulcer Sacral decub ulcer stage 1 Results - Vital Signs Recent Vital Signs: Last Vital Signs Temp 99.5 F 09/25/17 22:22 Pulse 102 H 09/25/17 22:22 Resp 20 09/25/17 22:22 BP 130/73 09/25/17 22:22 Pulse Ox 97 09/25/17 21:45 - Labs Result Diagrams: 09/25/17 14:30 09/25/17 14:30 Labs: Laboratory Results - last 24 hr 09/25/17 09/25/17 09/25/17 19:25 20:15 21:15 APTT > 400.0 H* > 400.0 H* POC Glucose (mg/dL) 228 H 09/25/17 22:41 APTT POC Glucose (mg/dL) 92 Assessment & Plan - Assessment and Plan (Free Text) Assessment: 71M w/ LLE DVT, UE cellulitis Plan: - IVF - DVT treatment - plan for bedside sharp debridement of RUE - recommend local wound care - further recs per Dr. Cloud surgical attending Richard Villela PGY1
--- NOTE | 2017-09-26 03:55 | US ---
PROCEDURE: Left lower extremity venous US HISTORY: Leg pain and swelling. Evaluate for DVT. PHYSICIAN(S): Mason Acosta MD. TECHNIQUE: Duplex sonography and color-flow Doppler with graded compression were used to evaluate the deep venous system of the left lower extremity. FINDINGS: There is acute, occlusive thrombus noted throughout the left common femoral vein, femoral vein, proximal left profunda femoral vein, popliteal vein, and visualized tibial veins. The superior extent of the thrombus is not determined. IMPRESSION: 1. Extensive left iliofemoral DVT. The superior extent of the thrombus is not determined.
[2017-09-26] MEDS ORDERED: Morphine 2 mg/ml ISec IVP ONE (06:32)
[2017-09-26 07:40] LABS: HEMOGLOBIN 9.1 g/dL (14.0-18.0); MEAN CELL VOLUME 94.2 fl (80.0-105.0); MEAN CORPUSCULAR HEMOGLOBIN 31.1 pg (25.0-35.0); MEAN PLATELET VOLUME 10.3 fl (7.0-11.0); RBC 2.93 10^6/uL (3.5-6.1); RED CELL DISTRIBUTION WIDTH 13.5 % (11.5-14.5); WHITE BLOOD COUNT 8.6 10^3/ul (4.5-11.0)
[2017-09-26 07:56] LABS: ALBUMIN 2.6 g/dL (3.0-4.8); CALCIUM 8.2 mg/dL (8.4-10.5)
[2017-09-26] MEDS: Insulin Reg-MEDIUM-Coverage SC SCH ×4 (08:19→21:36)
[2017-09-26] MEDS: Insulin Detemir 100 units/ml Vial (Levemir) SC SCH ×2 (08:21→21:35)
[2017-09-26] MEDS: Sodium Chloride 0.9% 1,000 ML IV SCH (09:28)
--- NOTE | 2017-09-26 09:47 | PCM.PROC ---
Procedures Attestation:: I certify that I have explained the specified Operation(s) or Procedure(s), risks, benefits and reasonable alternatives to the Patient and/or other person responsible. The opportunity was given to ask questions and all questions answered - Dressing Care Location #1 Debridment Necessary: Yes Dressing Type: Moist Neurovascular Qualities Intact: Yes Patient Tolerated Procedure: well Additional Comments: Patient was prepped and draped in sterile fashion. time out was taken prior to incision. sharp debridement with an #10blade was used in the RUE. necrotic tissue was debrided and removed. povie-iodine soaked 4x4 was placed in the wound and dry dressing was placed on top.
[2017-09-26] MEDS ORDERED: Collagenase 250 Units/gm Ointment(30 gm) TOP SCH (10:00)
[2017-09-26] MEDS: Magnesium Oxide 400 mg Tab UD PO SCH (10:25)
[2017-09-26] MEDS: Pantoprazole 40 mg EC Tab PO SCH (10:25)
[2017-09-26] MEDS ORDERED: oxyCODONE 10 mg Immediate Release Tab PO PRN (18:01)
[2017-09-27] MEDS: Sodium Chloride 0.9% 1,000 ML IV SCH (03:55)
--- NOTE | 2017-09-27 09:29 | CP.PCM.PN ---
Subjective - Date & Time of Evaluation Date of Evaluation: 09/27/17 Time of Evaluation: 06:45 - Subjective Subjective: General Surgery- Dr. Cloud Pt seen and examined at bedside this AM. Pt is non-verbal. unable to obtain ROS. RUE dressing C/D/I. Mid thorax eschar intact no bleeding or oozing. Objective - Vital Signs/Intake and Output Vital Signs (last 24 hours): Temp Pulse Resp BP Pulse Ox 99.3 F 86 18 142/78 97 09/27/17 07:30 09/27/17 07:30 09/27/17 07:30 09/27/17 07:30 09/27/17 07:30 Intake and Output: 09/27/17 09/27/17 06:59 18:59 Intake Total 3120 Output Total 4 Balance 3116 - Medications Medications: Current Medications Amlodipine Besylate (Norvasc) 10 mg PO DAILY [facility] Last Admin: 09/26/17 10:26 Dose: 10 mg Apixaban (Eliquis) 5 mg PO BID [facility] Last Admin: 09/26/17 17:18 Dose: 5 mg Aspirin (Ecotrin) 81 mg PO DAILY [facility] Last Admin: 09/26/17 10:25 Dose: 81 mg Carvedilol (Coreg) 3.125 mg PO BID [facility] Last Admin: 09/26/17 17:18 Dose: 3.125 mg Sodium Chloride (Sodium Chloride 0.9%) 1,000 mls @ 100 mls/hr IV .Q10H [facility] Last Admin: 09/27/17 03:55 Dose: 100 mls/hr Insulin Detemir (Levemir) 26 unit SC HS [facility] Insulin Human Lispro (Humalog Low) 0 units SC ACHS [facility] PRN Reason: Protocol Insulin Lispro Protam/Lispro Human (Humalog Mix 75/25) 24 units SC ACB [facility] Insulin Lispro Protam/Lispro Human (Humalog Mix 75/25) 16 units SC ACD [facility] Magnesium Oxide (Mag-Ox) 400 mg PO DAILY [facility] Last Admin: 09/26/17 10:25 Dose: 400 mg Oxycodone HCl (Oxycodone Immediate Release Tab) 10 mg PO Q6H PRN PRN Reason: Pain, moderate (4-7) Pantoprazole Sodium (Protonix Ec Tab) 40 mg PO DAILY [facility] Last Admin: 09/26/17 10:25 Dose: 40 mg Rivastigmine (Exelon 9.5 Mg/24 Hr Patch) 1 patch TD DAILY [facility] Last Admin: 09/26/17 10:26 Dose: 1 patch Silver Sulfadiazine (Silvadene 1% 25 Gm) 1 gm TP DAILY [facility] - Labs Labs: 09/26/17 07:00 09/26/17 07:00 PT 13.2 SECONDS (9.4-12.5) H 09/25/17 14:30 INR 1.21 (0.93-1.08) H 09/25/17 14:30 APTT > 400.0 Seconds (25.1-36.5) H* 09/25/17 21:15 - Constitutional Appears: Non-toxic, No Acute Distress - Head Exam Head Exam: ATRAUMATIC - Eye Exam Eye Exam: absent: Scleral icterus - ENT Exam ENT Exam: Mucous Membranes Moist - Respiratory Exam Respiratory Exam: NORMAL BREATHING PATTERN. absent: Accessory Muscle Use, Respiratory Distress - Cardiovascular Exam Cardiovascular Exam: Bradycardia, Tachycardia. absent: +S1, +S2 - GI/Abdominal Exam GI & Abdominal Exam: Soft. absent: Guarding, Rigid, Tenderness - Extremities Exam Additional comments: arms crossed. immobile RUE debrided yesterday mid thorax eschar- dry, non-bleeding - Neurological Exam Neurological Exam: Awake - Skin Skin Exam: Dry, Warm Assessment and Plan - Assessment and Plan (Free Text) Assessment: 71M w/ RUE wound, anterior chest eschar s/p bedside debridement of RUE Plan: - normal saline, alginate and dressing on RUE - silvadene on anterior thorax eschar - no surgical intervention at this time - medical management per primary team - please re-consult as needed. Thank you for allowing us to participate in this patients care - further recs per Dr. Cloud surgical attending PGY1
--- NOTE | 2017-09-27 10:32 | CON ---
DATE: ENDOCRINOLOGY CONSULTATION LOCATION: Room 564. HISTORY OF PRESENT ILLNESS: This is a 71-year-old male admitted with left lower extremity swelling and deep vein thrombosis, currently on anticoagulation therapy with Eliquis and Ecotrin medications as noted and is now being referred for diabetic evaluation and management because of recent hyperglycemic accelerations as noted thereof. PAST MEDICAL HISTORY: History of type 2 insulin-requiring diabetes, currently on a combination of Humalog given as 30 units subcu b.i.d. before meals as ordered. History of hypertensive cardiovascular disease and dyslipidemia, history of coronary artery disease and peripheral arterial disease and vasculopathy. History of a previous coronary artery bypass graft surgery as noted. He also has senile dementia of the Alzheimer's type and is actually nonverbal and noncommunicative at this time. FAMILY HISTORY: Positive for hypertension and heart disease. SOCIAL HISTORY: The patient has supportive family with a previous history of smoking. REVIEW OF SYSTEMS: Not possible at this time as it has been noted by the family to have increasing bouts of dizziness and lightheadedness with suboptimal energy level and increasing hypersomnolence and lethargy. No chest pains, palpitations or PND. His oral intake has been variable with nausea, dyspepsia and vague upper abdominal pains with habitual constipation. He also has recent alterations of bowel and urinary patterns. PHYSICAL EXAMINATION: GENERAL: This is an average built male in no apparent distress. VITAL SIGNS: With a blood pressure of 140/80, pulse of 70 beats per minute regular, temperature 98, respirations 20, height is 5 feet 10 inches, weight is 145 pounds. HEENT: Head normocephalic. Eyes anicteric with pink conjunctivae. Fundoscopy not possible at this time. Ears, nose and throat otherwise normal. NECK: Supple. Thyroid gland is normal size. No carotid bruits or cervical adenopathy. CARDIOPULMONARY: Adynamic precordium. S1, S2 is rapid and regular. LUNGS: Clear to auscultation. ABDOMEN: Flat, soft with positive bowel sounds. EXTREMITIES: No peripheral edema. Pulses are +2 bilaterally. The left lower extremity shows positive direct tenderness in the calf area and pulses are +2 bilaterally. LABORATORY DATA: Chemistry showed a BUN of 39, sodium 133, potassium 3.7, chloride 105, CO2 21, glucose 176 and creatinine 1.9. His glucose levels have ranged from 175 to 354 mg/dL. ASSESSMENT: This is a 71-year-old male with uncontrolled and decompensated type 2 insulin-requiring diabetes presenting here with marked hyperglycemic accelerations as noted thereof. Moreover, he also has diabetic retinopathy, polyneuropathy and nephropathy with underlying chronic kidney disease. Moreover, he also has diabetic macrovascular complications of coronary artery disease with the previous coronary artery bypass graft surgery, peripheral arterial disease and vasculopathy. PLAN OF MANAGEMENT: We will modify his current insulin regimen and switch him over to a premixed insulin regimen with Humalog 75/25 given as 24 units before breakfast and 16 units before dinner to start today. We will modify the coverage scale using a low-dose algorithm using Humalog insulin as given to obviate hypoglycemia. We will also add basal insulin with Levemir to be increased to 26 units subcu at bedtime daily to start tonight. We will obtain serial chemistries and supplement accordingly as needed. We will also obtain hemoglobin A1c to confirm his prior glycemic control and baseline thyroid function studies will be ordered. We will obtain serial chemistries and supplement accordingly as needed. We will follow with you. Andria Cortez MD
[2017-09-27 10:53] LABS: BASO # 0.01 K/mm3 (0.0-2.0); BASO % 0.1 % (0.0-3.0); EOS # 0.2 (0.0-0.7); EOS % 2.4 % (1.5-5.0); GRAN # 6.83 (1.4-6.5); GRAN % 76.1 % (50.0-68.0); HEMOGLOBIN 9.7 g/dL (14.0-18.0); LYMPH # 1.3 (1.2-3.4); LYMPH % 14.6 % (22.0-35.0); MEAN CELL VOLUME 94.4 fl (80.0-105.0); MEAN CORPUSCULAR HEMOGLOBIN 31.7 pg (25.0-35.0); MEAN CORPUSCULAR HGB CONC 33.6 g/dl (31.0-37.0); MEAN PLATELET VOLUME 10.3 fl (7.0-11.0); MONO # 0.6 (0.1-0.6); MONO % 6.8 % (1.0-6.0); RBC 3.06 10^6/uL (3.5-6.1); RED CELL DISTRIBUTION WIDTH 13.3 % (11.5-14.5)
[2017-09-27] MEDS: Magnesium Oxide 400 mg Tab UD PO SCH (11:00)
[2017-09-27] MEDS: Pantoprazole 40 mg EC Tab PO SCH (11:07)
[2017-09-27] MEDS: Collagenase 250 Units/gm Ointment(30 gm) TOP SCH (11:14)
[2017-09-27 11:23] LABS: ALBUMIN 2.4 g/dL (3.0-4.8); CALCIUM 8.3 mg/dL (8.4-10.5)
[2017-09-27] MEDS: Silver Sulfadiazine 1% Cream (25 gm) TP SCH (11:30)
--- NOTE | 2017-09-27 12:47 | PN ---
DATE: SUBJECTIVE: The patient is seen, the right chest wall lesion has full-thickness necrotic skin and this is consisted with pressure. The right antecubital fossa has a large lesion that had been debrided sharply. There is a grumous material on the bottom with exposed structures, we will treat with Santyl for now. Beka Cloud MD
[2017-09-27] MEDS: Insulin Lispro (humaLOG) LOW Coverage SC SCH ×3 (15:45→23:01)
[2017-09-27] MEDS: Insulin Lispro (humaLOG) MIX 75/25(10 ml) SC SCH (17:53)
--- NOTE | 2017-09-27 20:31 | CON ---
DATE: 09/27/2017 The patient is in bed in no acute distress. The patient is seen in 564. CHIEF COMPLAINT: Weakness and high blood sugar times 1 day. HISTORY OF PRESENT ILLNESS: This is a 71-year-old male with recent hospitalization has a history of diabetes mellitus, has a history of dementia and Alzheimer's and hypertension and coronary artery disease who is admitted because of high blood sugar and complaining of weaker than usual weakness. REVIEW OF SYSTEMS: Reveals the patient denies any fevers or any chills. No chest pain. He has had wound in his right arm and on his chest that has not changed and there has been no dysuria or frequency and the patient had recent hospitalization in August and July was seen in the Emergency Room. PAST MEDICAL HISTORY: Significant for the patient is nonverbal with Alzheimer's dementia, coronary artery disease, hypertension, diabetes, and renal disease. PAST SURGICAL HISTORY: Significant for coronary artery bypass graft. ALLERGIES: THE PATIENT IS ALLERGIC TO PENICILLIN, THE TYPE OF ALLERGY IS NOT CLEAR. PHYSICAL EXAMINATION: GENERAL: The patient is in bed, in no acute distress. VITAL SIGNS: Temperature of 99.7, heart rate of 112 down to 86 now, respiratory rate of 20, and blood pressure is 140/80. HEENT: Unremarkable. NECK: Supple. LUNGS: Have decreased breath sounds. HEART: Normal S1 and S2. ABDOMEN: Soft and nontender. EXTREMITIES: Examination of the arm reveals a chronic ulcers and also a chronic ulcer from a bullous lesion on the chest. LABORATORY DATA: Reveals a white count of 11,700, hemoglobin of 11, platelets of 121, and 82% granulocytosis. Coagulation is noted. Chemistries reveals the patient to have a BUN of 39, creatinine of 1.9, and alk phos is 135. The patient's creatinine upon discharge on 09/11/2017 was 1.9 and day before on admission, it is 2.3 and the patient's culture from 09/26/2017 in the right arm is Gram-negative nitza and with a heavy growth. 's progress note is reviewed. Dr. Cloud's note is reviewed. Dr. Cloud's consultation is reviewed. The patient had an ultrasound of the extremity. There is an acute occlusive thrombus noted throughout the left common femoral vein and extensive left iliofemoral DVT. ASSESSMENT AND PLAN: This is a 71-year-old male who was nonverbal with Alzheimer's, diabetes mellitus, dementia, hypertension, coronary artery disease, depression, renal disease with a Gram-negative nitza, wound necrosis, lower extremity extensive left deep venous thrombosis of acute kidney injury, his creatinine is changed from 1.9 in August to 2.3 and we will treat the patient with meropenem. The patient is allergic to penicillin, pending local wound care and identification of the Gram-negative nitza from the wound of the right arm. We will follow with you. Keith August MD
[2017-09-27] MEDS ORDERED: Insulin Detemir 100 units/ml Vial (Levemir) SC SCH (22:00)
[2017-09-27] MEDS: Meropenem 1 GM in Sodium Chloride 0.9% 100 ML IVPB SCH (23:02)
--- NOTE | 2017-09-27 23:37 | CP.PCM.PN ---
Subjective - Date & Time of Evaluation Date of Evaluation: 09/27/17 Time of Evaluation: 12:00 - Subjective Subjective: Comfortable in bed. Non communicative. No fever. Wound debribment left arm showed gram negative rods. Platelet count stable. On anticoagulation with eliquis. Objective - Vital Signs/Intake and Output Vital Signs (last 24 hours): Temp Pulse Resp BP Pulse Ox 98.5 F 78 16 111/63 92 L 09/27/17 16:30 09/27/17 17:52 09/27/17 16:30 09/27/17 17:52 09/27/17 16:30 Intake and Output: 09/27/17 09/28/17 18:59 06:59 Intake Total 1200 240 Output Total 2 Balance 1200 238 - Medications Medications: Current Medications Amlodipine Besylate (Norvasc) 10 mg PO DAILY [facility] Last Admin: 09/27/17 11:00 Dose: 10 mg Apixaban (Eliquis) 5 mg PO BID [facility] Last Admin: 09/27/17 17:52 Dose: 5 mg Aspirin (Ecotrin) 81 mg PO DAILY [facility] Last Admin: 09/27/17 11:00 Dose: 81 mg Carvedilol (Coreg) 3.125 mg PO BID [facility] Last Admin: 09/27/17 17:52 Dose: 3.125 mg Collagenase (Santyl) 0 gm TOP DAILY [facility] Last Admin: 09/27/17 11:14 Dose: 1 unit Sodium Chloride (Sodium Chloride 0.9%) 1,000 mls @ 100 mls/hr IV .Q10H [facility] Last Admin: 09/27/17 03:55 Dose: 100 mls/hr Meropenem 1 gm/ Sodium (Chloride) 100 mls @ 100 mls/hr IVPB Q12 [facility] PRN Reason: Protocol Stop: 10/06/17 22:01 Last Admin: 09/27/17 23:02 Dose: 100 mls/hr Insulin Detemir (Levemir) 26 unit SC HS [facility] Last Admin: 09/27/17 23:01 Dose: 26 unit Insulin Human Lispro (Humalog Low) 0 units SC ACHS [facility] PRN Reason: Protocol Last Admin: 09/27/17 23:01 Dose: Not Given Insulin Lispro Protam/Lispro Human (Humalog Mix 75/25) 24 units SC ACB [facility] Insulin Lispro Protam/Lispro Human (Humalog Mix 75/25) 16 units SC ACD [facility] Last Admin: 09/27/17 17:53 Dose: 16 units Magnesium Oxide (Mag-Ox) 400 mg PO DAILY [facility] Last Admin: 09/27/17 11:00 Dose: 400 mg Oxycodone HCl (Oxycodone Immediate Release Tab) 10 mg PO Q6H [facility] PRN Reason: Pain, moderate (4-7) Pantoprazole Sodium (Protonix Ec Tab) 40 mg PO DAILY [facility] Last Admin: 09/27/17 11:07 Dose: 40 mg Rivastigmine (Exelon 9.5 Mg/24 Hr Patch) 1 patch TD DAILY [facility] Last Admin: 09/27/17 11:00 Dose: 1 patch Silver Sulfadiazine (Silvadene 1% 25 Gm) 1 gm TP DAILY [facility] Last Admin: 09/27/17 11:30 Dose: 1 gm - Labs Labs: 09/27/17 10:30 09/27/17 10:30 PT 13.2 SECONDS (9.4-12.5) H 09/25/17 14:30 INR 1.21 (0.93-1.08) H 09/25/17 14:30 APTT 27.4 Seconds (25.1-36.5) 09/27/17 12:35 - Constitutional Appears: Chronically Ill - Head Exam Head Exam: ATRAUMATIC, NORMAL INSPECTION - Eye Exam Eye Exam: Normal appearance - ENT Exam ENT Exam: Mucous Membranes Moist - Neck Exam Neck Exam: Normal Inspection - Respiratory Exam Respiratory Exam: Clear to Ausculation Bilateral - Cardiovascular Exam Cardiovascular Exam: REGULAR RHYTHM, +S1, +S2 - GI/Abdominal Exam GI & Abdominal Exam: Soft, Normal Bowel Sounds - Extremities Exam Additional comments: left leg swelling present. - Neurological Exam Neurological Exam: Awake Additional comments: non communicative. - Skin Skin Exam: Pallor Assessment and Plan - Assessment and Plan (Free Text) Assessment: 1. Hypercoaguable state 2. left leg DVT 3. Anemia 3. Thrombocytopenia 4. advanced dementia 5. DM II 6. CKD III 7. Multiple decub, right arm -growing gram negative rods. Plan : Continue anticoagualtion with eliquis at 5 mg PO BID. Platelet count stable. Will continue to monitor. Anemia work up ordered- iron studies, B12, folate. CKD also might be contributing to anemia. Dementia- continue current meds. Gram negative rods from right arm debridement, on Meropenem ID consult Dr. Mak appreciated. renal - stable renal functions.
--- NOTE | 2017-09-28 00:59 | CON ---
DATE: 09/26/2017 REASON FOR CONSULTATION: Anemia, thrombocytopenia, extensive DVT to left lower extremity, hypercoagulable state. HISTORY OF PRESENT ILLNESS: Mr. Sampson is a 71-year-old male, brought to emergency department because of high sugar. He has history of Alzheimer's, triple bypass, diabetes mellitus type 2, dementia. He is most of the time bed bound. Doppler of the lower extremity done in the ER showed extensive iliofemoral DVT. Upper extent could not be determined. He has pain, swelling of the left leg. He was also found to have anemia and thrombocytopenia. Hemoglobin of 9.1 g/dL and platelet count of 88. He was on heparin drip on 09/25/2017 when the platelet count was 121 on admission. Denies any bleeding. He is bed bound most of the time at home. takes care of him. The also noted some blister wound on the right arm. He has multiple decubitus ulcer in lower extremity. He has diabetes mellitus. Blood sugar is not controlled. PAST MEDICAL HISTORY: Hypertension, Alzheimer disease, advanced dementia, diabetes mellitus type 2, multiple pressure ulcers in lower extremity sacral area. PAST SURGICAL HISTORY: Triple bypass surgery. FAMILY HISTORY: Noncontributory. PERSONAL HISTORY: Never smoked. No history of alcohol abuse. ALLERGIES: PENICILLIN CAUSES ANAPHYLAXIS. REVIEW OF SYSTEMS: As per HPI. Rest of 12-point review of systems reviewed and negative. PHYSICAL EXAMINATION: VITAL SIGNS: Temperature of 98.5, heart rate 112, respiratory rate 17per minute, blood pressure 108/73, heart rate 100 per minute. HEENT: Normal. Mucosa pale. NECK: No lymphadenopathy. CHEST: Air entry is present and equal bilaterally. No added sounds. CARDIOVASCULAR: S1 and S2 normal. No murmur. No gallop. ABDOMEN: Soft and nontender. No hepatosplenomegaly. EXTREMITIES: Left extremity is slightly tender, swollen left lower extremity. Multiple pressure sores present on the heel and sacral area and right arm NEUROLOGIC: Awake. not alert, not communicative. Responds to painful stimuli. LABORATORY DATA: White count 8.6, hemoglobin 9.1, hematocrit 27.6, and platelet count 88. Platelet count on admission was 121. Sodium 134, potassium 4, and creatinine 1.8. Total bilirubin 0.5. AST 31, ALT 42. CURRENT MEDICATIONS: Eliquis 5 mg p.o. b.i.d., Protonix 40 mg daily, oxycodone p.r.n. for pain, IV fluid at 100 an hour, silver sulfadiazine, meropenem 1 g q. 12 hour, insulin sliding scale, aspirin 81 mg daily, Coreg 3.125 mg b.i.d., Norvasc 10 mg daily. ASSESSMENT: 1. Anemia. 2. Thrombocytopenia. 3. Left iliofemoral extensive deep venous thrombosis. 4. Hypercoagulable state. 5. Chronic kidney disease stage 3. 6. Coronary artery disease. PLAN: He is currently on anticoagulation with Eliquis 5 mg p.o b.i.d. Doses are reduced due to the elevated creatinine. He has poor performance status. He is bed bound most of the time at home. Not ambulatory. Platelet count dropped from 121,000 to 88,000 while he was on heparin drip. There is possibility of HIT. We will continue Eliquis. The other options are fondaparinux and argatroban drip. I will hold further drip and watch the platelet count. If it does not decline further, we will continue Eliquis only. We will do the workup for anemia, iron studies, B12, folate level. He has chronic kidney disease with elevated creatinine of 1.8 that might be contributing to anemia. Hypercoagulable state, left extensive DVT due to nonambulatory condition. We will defer the hypercoagulable workup. We will recommend anticoagulation with Eliquis 5 mg p.o. b.i.d. lifelong. He has increased risk of DVT because he is bed bound. He had debridement of the skin lesion on the right arm. Gram stain showed gram-negative nitza. ID consultation by Dr. August is requested. Currently on IV antibiotic meropenem. We will continue to monitor closely. Thank you Dr. Dorman for allowing us to participate in Mr. Sampson's care. Monica Szymanski MD
[2017-09-28] MEDS: Sodium Chloride 0.9% 1,000 ML IV SCH (01:24)
[2017-09-28 07:04] LABS: EOS # 0.2 (0.0-0.7); EOS % 2.9 % (1.5-5.0); GRAN # 5.52 (1.4-6.5); HEMOGLOBIN 9.8 g/dL (14.0-18.0); LYMPH # 1.5 (1.2-3.4); LYMPH % 18.6 % (22.0-35.0); MEAN CELL VOLUME 94.3 fl (80.0-105.0); MEAN CORPUSCULAR HGB CONC 32.9 g/dl (31.0-37.0); MEAN PLATELET VOLUME 10.3 fl (7.0-11.0); MONO # 0.7 (0.1-0.6); MONO % 8.5 % (1.0-6.0); RBC 3.16 10^6/uL (3.5-6.1); RED CELL DISTRIBUTION WIDTH 13.2 % (11.5-14.5); WHITE BLOOD COUNT 7.9 10^3/ul (4.5-11.0)
[2017-09-28 07:13] LABS: IRON 42 ug/dL (45-180)
[2017-09-28 07:17] LABS: CALCIUM 8.5 mg/dL (8.4-10.5)
[2017-09-28] MEDS ORDERED: Insulin Lispro (humaLOG) MIX 75/25(10 ml) SC SCH (07:30)
[2017-09-28 07:34] LABS: TOTAL IRON BINDING CAPACITY 199 ug/dL (261-462)
[2017-09-28 07:52] LABS: % IRON SATURATION 21 % (20-55)
[2017-09-28] MEDS: Pantoprazole 40 mg EC Tab PO SCH (11:00)
[2017-09-28] MEDS: Magnesium Oxide 400 mg Tab UD PO SCH (11:00)
[2017-09-28] MEDS: Meropenem 1 GM in Sodium Chloride 0.9% 100 ML IVPB SCH ×2 (11:00→23:15)
[2017-09-28] MEDS: Collagenase 250 Units/gm Ointment(30 gm) TOP SCH (11:07)
[2017-09-28] MEDS: Insulin Lispro (humaLOG) LOW Coverage SC SCH ×3 (11:07→17:55)
[2017-09-28] MEDS: Silver Sulfadiazine 1% Cream (25 gm) TP SCH (11:08)
[2017-09-28] MEDS: Insulin Lispro (humaLOG) MIX 75/25(10 ml) SC SCH (17:58)
--- NOTE | 2017-09-28 19:26 | CP.PCM.PN ---
Subjective - Date & Time of Evaluation Date of Evaluation: 09/28/17 Time of Evaluation: 11:50 - Subjective Subjective: Still with right arm discomfort, no fevers overnight. Objective - Vital Signs/Intake and Output Vital Signs (last 24 hours): Temp Pulse Resp BP Pulse Ox 98.5 F 76 20 119/52 L 98 09/28/17 16:00 09/28/17 16:00 09/28/17 16:00 09/28/17 16:00 09/28/17 16:00 - Medications Medications: Current Medications Amlodipine Besylate (Norvasc) 10 mg PO DAILY [facility] Last Admin: 09/28/17 11:05 Dose: 10 mg Apixaban (Eliquis) 5 mg PO BID [facility] Last Admin: 09/28/17 17:55 Dose: 5 mg Aspirin (Ecotrin) 81 mg PO DAILY [facility] Last Admin: 09/28/17 11:00 Dose: 81 mg Carvedilol (Coreg) 3.125 mg PO BID [facility] Last Admin: 09/28/17 17:55 Dose: 3.125 mg Collagenase (Santyl) 0 gm TOP DAILY [facility] Last Admin: 09/28/17 11:07 Dose: 1 unit Sodium Chloride (Sodium Chloride 0.9%) 1,000 mls @ 100 mls/hr IV .Q10H [facility] Last Admin: 09/28/17 01:24 Dose: 100 mls/hr Meropenem 1 gm/ Sodium (Chloride) 100 mls @ 100 mls/hr IVPB Q12 [facility] PRN Reason: Protocol Stop: 10/06/17 22:01 Last Admin: 09/28/17 11:00 Dose: 100 mls/hr Insulin Detemir (Levemir) 12 unit SC HS [facility] Insulin Human Lispro (Humalog Low) 0 units SC ACHS [facility] PRN Reason: Protocol Last Admin: 09/28/17 17:55 Dose: 1 units Insulin Lispro Protam/Lispro Human (Humalog Mix 75/25) 18 units SC ACB [facility] Insulin Lispro Protam/Lispro Human (Humalog Mix 75/25) 10 units SC ACD [facility] Magnesium Oxide (Mag-Ox) 400 mg PO DAILY [facility] Last Admin: 09/28/17 11:00 Dose: 400 mg Oxycodone HCl (Oxycodone Immediate Release Tab) 10 mg PO Q6H PRN PRN Reason: Pain, moderate (4-7) Pantoprazole Sodium (Protonix Ec Tab) 40 mg PO DAILY [facility] Last Admin: 09/28/17 11:00 Dose: 40 mg Rivastigmine (Exelon 9.5 Mg/24 Hr Patch) 1 patch TD DAILY [facility] Last Admin: 09/28/17 11:00 Dose: 1 patch Silver Sulfadiazine (Silvadene 1% 25 Gm) 1 gm TP DAILY [facility] Last Admin: 09/28/17 11:08 Dose: 1 gm - Labs Labs: 09/28/17 06:30 09/28/17 06:30 PT 13.2 SECONDS (9.4-12.5) H 09/25/17 14:30 INR 1.21 (0.93-1.08) H 09/25/17 14:30 APTT 27.4 Seconds (25.1-36.5) 09/27/17 12:35 - Constitutional Appears: Non-toxic - Head Exam Head Exam: NORMAL INSPECTION - Neck Exam Neck Exam: absent: Meningismus - Respiratory Exam Respiratory Exam: Decreased Breath Sounds - Cardiovascular Exam Cardiovascular Exam: +S1, +S2 - GI/Abdominal Exam GI & Abdominal Exam: Soft. absent: Tenderness Assessment and Plan - Assessment and Plan (Free Text) Plan: Assessment Right upper arm skin and soft tissue infection with wound necrosis with E. coli and E. faecalis DVT DM Alzheimer's dementia CAD S/P CABG Plan Continue Merrem for now and will monitor clinically
[2017-09-28] MEDS ORDERED: Insulin Detemir 100 units/ml Vial (Levemir) SC SCH (22:00)
--- NOTE | 2017-09-29 04:05 | HP ---
HISTORY OF PRESENT ILLNESS: A 71-year-old male with history of dementia, history of renal insufficiency, history of hypertension, hyperlipidemia, history of bullous skin condition with eschar formation of the right upper extremity, the right heel, left chest and some other small areas. The patient was brought to the hospital with hyperglycemia, blood sugars were over 500, dehydration, renal insufficiency, and was also found to have swelling and pain in the left lower extremity, was found to have an iliofemoral extensive DVT. The patient was admitted to the hospital. PHYSICAL EXAMINATION GENERAL: Shows a well-developed, thin male. He is nonverbal at this point and has been for some time. He is awake and alert and responds to pain but not to verbal stimuli, he is nonverbal at this point. He does have a long history of dementia. There are eschars in right upper inner arm, in the left chest and in the both heels. ABDOMEN: Benign. CHEST: Clear to auscultation and percussion. HEART: Examination reveals sinus rhythm. EXTREMITIES: Without any cyanosis, clubbing, or edema. IMPRESSION: Left leg is somewhat swollen and somewhat warm to touch, left iliofemoral deep venous thrombosis, dementia, bullous skin disease, renal sufficiency, hypertension, hyperglycemia, and dehydration. Jama Dorman MD
[2017-09-29] MEDS ORDERED: Insulin Lispro (humaLOG) MIX 75/25(10 ml) SC SCH ×3 (07:30→16:30)
[2017-09-29] MEDS: Insulin Lispro (humaLOG) LOW Coverage SC SCH ×4 (07:58→22:00)
--- NOTE | 2017-09-29 08:39 | PN ---
DATE: 09/28/2017 SUBJECTIVE: A 71-year-old male with history of dementia, history of recent blue skin disease, history of renal insufficiency, and hyperglycemia. The patient was found with a blood sugar of grater than 500, brought to the emergency room and was found to be having a DVT in his leg. The patient was started on heparin; however, developed a hyper-anticoagulated state from the heparin and was unable to be tolerated it. The patient was switched from heparin to Eliquis, there is an instance of left iliofemoral DVT. The patient has no history of DVT in the past. However, he is nonambulatory due to his dementia and recent inability to walk. The patient also was found to have laboratory data consistent with mild anemia, thrombocytopenia with platelet count of 84,000. Today, he has 101,000 and hemoglobin is up to 9.8, white count is normal, the white count is rising. He does have renal insufficiency of unknown origin, most recent BUN and creatinine are 29 and 1.7. Blood sugars are well-controlled. Blood sugar is 176 today. He was admitted with a markedly elevated blood sugar in the emergency room of over 400. The patient is awake, alert, and nonverbal at this point. His wounds have been by Dr. Cloud. He has bandages after having debridement of some of the eschars. He is tolerating his diet well. He is tolerating his Eliquis well. Platelet count has improved. Plan will be to start some physical therapy. Jama Dorman MD
--- NOTE | 2017-09-29 08:46 | PN ---
DATE: 09/28/2017 LOCATION: In room 564. SUBJECTIVE: This is a 71-year-old male with recent uncontrolled type 2 insulin-requiring diabetes presenting here with deep vein thrombosis in the left lower extremity and now being followed closely for metabolic management. His glycemic levels are much improved as noted overnight and glucose levels have ranged from 80-97 and 176 mg/dL. His chemistry showed a BUN of 25, sodium 136, potassium 3.9, chloride 107, CO2 of 21, glucose 75 and creatinine 1.7. So at this time, we will modify once again his basal and premixed insulin regimen and lower the Levemir to 12 units subcu at bedtime daily to start tonight. We will also lower the premixed insulin regimen with Humalog 75/25 to be given as 18 units a.c. breakfast and 10 units a.c. dinner as ordered. We will modify the coverage scale to obviate hypoglycemia and detailed orders have been given. We will obtain serial chemistries and supplement accordingly as needed. We will follow with you. Andria Cortez MD
--- NOTE | 2017-09-29 09:25 | PN ---
DATE: A 71-year-old white male in the hospital with hyperglycemia, acute DVT of the left upper leg, and multiple wound infections. The patient is stable today. PHYSICAL EXAMINATION: VITAL SIGNS: Temperature is 98.2 and blood pressure is 149/93. LABORATORY DATA: His BUN and creatinine are improved to 25 and 1.7. His white count is 7.9. His hemoglobin is 9.8. PLAN: Plan is to continue IV antibiotics, local wound care and Eliquis for his DVT. Jama Dorman MD
[2017-09-29] MEDS: Pantoprazole 40 mg EC Tab PO SCH (09:28)
[2017-09-29] MEDS: Magnesium Oxide 400 mg Tab UD PO SCH (09:28)
[2017-09-29] MEDS: Meropenem 1 GM in Sodium Chloride 0.9% 100 ML IVPB SCH (09:32)
[2017-09-29] MEDS: Collagenase 250 Units/gm Ointment(30 gm) TOP SCH (10:17)
--- NOTE | 2017-09-29 13:26 | CP.PCM.PN ---
Subjective - Date & Time of Evaluation Date of Evaluation: 09/29/17 Time of Evaluation: 12:00 - Subjective Subjective: Comfortable, not in distress. No fevers. Objective - Vital Signs/Intake and Output Vital Signs (last 24 hours): Temp Pulse Resp BP Pulse Ox 98.2 F 84 18 149/93 H 98 09/29/17 07:30 09/29/17 09:29 09/29/17 07:30 09/29/17 09:29 09/29/17 07:30 Intake and Output: 09/29/17 09/29/17 06:59 18:59 Intake Total 600 Balance 600 - Medications Medications: Current Medications Amlodipine Besylate (Norvasc) 10 mg PO DAILY [facility] Last Admin: 09/29/17 09:29 Dose: 10 mg Apixaban (Eliquis) 5 mg PO BID [facility] Last Admin: 09/29/17 09:28 Dose: 5 mg Aspirin (Ecotrin) 81 mg PO DAILY [facility] Last Admin: 09/29/17 09:28 Dose: 81 mg Carvedilol (Coreg) 3.125 mg PO BID [facility] Last Admin: 09/29/17 09:29 Dose: 3.125 mg Collagenase (Santyl) 0 gm TOP DAILY [facility] Last Admin: 09/28/17 11:07 Dose: 1 unit Sodium Chloride (Sodium Chloride 0.9%) 1,000 mls @ 100 mls/hr IV .Q10H [facility] Last Admin: 09/28/17 01:24 Dose: 100 mls/hr Meropenem 1 gm/ Sodium (Chloride) 50 mls @ 100 mls/hr IVPB Q12 [facility] PRN Reason: Protocol Stop: 10/06/17 22:01 Insulin Detemir (Levemir) 6 unit SC HS [facility] Insulin Human Lispro (Humalog Low) 0 units SC ACHS [facility] PRN Reason: Protocol Last Admin: 09/29/17 12:32 Dose: Not Given Insulin Lispro Protam/Lispro Human (Humalog Mix 75/25) 8 units SC ACD [facility] Insulin Lispro Protam/Lispro Human (Humalog Mix 75/25) 14 units SC ACB [facility] Magnesium Oxide (Mag-Ox) 400 mg PO DAILY [facility] Last Admin: 09/29/17 09:28 Dose: 400 mg Oxycodone HCl (Oxycodone Immediate Release Tab) 10 mg PO Q6H [facility] PRN Reason: Pain, moderate (4-7) Pantoprazole Sodium (Protonix Ec Tab) 40 mg PO DAILY [facility] Last Admin: 09/29/17 09:28 Dose: 40 mg Rivastigmine (Exelon 9.5 Mg/24 Hr Patch) 1 patch TD DAILY [facility] Last Admin: 09/29/17 09:29 Dose: 1 patch Silver Sulfadiazine (Silvadene 1% 25 Gm) 1 gm TP DAILY [facility] Last Admin: 09/28/17 11:08 Dose: 1 gm - Labs Labs: 09/28/17 06:30 09/28/17 06:30 PT 13.2 SECONDS (9.4-12.5) H 09/25/17 14:30 INR 1.21 (0.93-1.08) H 09/25/17 14:30 APTT 27.4 Seconds (25.1-36.5) 09/27/17 12:35 - Constitutional Appears: Non-toxic, No Acute Distress - Head Exam Head Exam: NORMAL INSPECTION - Neck Exam Neck Exam: absent: Meningismus - Respiratory Exam Respiratory Exam: Decreased Breath Sounds - Cardiovascular Exam Cardiovascular Exam: +S1, +S2 - GI/Abdominal Exam GI & Abdominal Exam: Soft. absent: Tenderness - Extremities Exam Additional comments: right arm with dressings in place Assessment and Plan - Assessment and Plan (Free Text) Assessment: Assessment Right upper arm skin and soft tissue infection with wound necrosis with E. coli and E. faecalis S/P debridement DVT DM Alzheimer's dementia CAD S/P CABG Plan on Merrem day 4; can switch to PO Zyvox and PO Vantin for another 7-10 days with outpatient follow up with surgery and PMD
[2017-09-29] MEDS: Insulin Lispro (humaLOG) MIX 75/25(10 ml) SC SCH (17:15)
[2017-09-29] MEDS: Silver Sulfadiazine 1% Cream (25 gm) TP SCH (17:18)
[2017-09-29] MEDS: Insulin Detemir 100 units/ml Vial (Levemir) SC SCH (22:19)
[2017-09-29 22:29] LABS: BASO # 0.01 K/mm3 (0.0-2.0); BASO % 0.2 % (0.0-3.0); EOS # 0.1 (0.0-0.7); EOS % 1.2 % (1.5-5.0); GRAN # 4.98 (1.4-6.5); GRAN % 74.8 % (50.0-68.0); HEMOGLOBIN 10.9 g/dL (14.0-18.0); LYMPH % 15.5 % (22.0-35.0); MEAN CELL VOLUME 93.7 fl (80.0-105.0); MEAN CORPUSCULAR HEMOGLOBIN 31.3 pg (25.0-35.0); MEAN CORPUSCULAR HGB CONC 33.4 g/dl (31.0-37.0); MEAN PLATELET VOLUME 10.5 fl (7.0-11.0); MONO # 0.6 (0.1-0.6); MONO % 8.3 % (1.0-6.0); RBC 3.48 10^6/uL (3.5-6.1); RED CELL DISTRIBUTION WIDTH 13.3 % (11.5-14.5); WHITE BLOOD COUNT 6.7 10^3/ul (4.5-11.0)
--- NOTE | 2017-09-29 22:39 | CP.PCM.PN ---
Subjective - Date & Time of Evaluation Date of Evaluation: 09/29/17 Time of Evaluation: 22:38 - Subjective Subjective: Patient was seen at bedside for Temp 103*F. He does not communicate upon asking any questions. Medical record was reviewed. Is already on Merem. This 71 year old male was admitted with swelling and pain of left lower extremity, ielofemoral DVT, dehydration, hyperglycemia-500mg %. Has PMH of HTN,dementia , DM, renal insufficiency. Objective - Vital Signs/Intake and Output Vital Signs (last 24 hours): Temp Pulse Resp BP Pulse Ox 103 F H 82 18 131/84 96 09/29/17 22:06 09/29/17 17:16 09/29/17 17:11 09/29/17 17:16 09/29/17 17:11 Intake and Output: 09/29/17 09/30/17 18:59 06:59 Intake Total 540 Balance 540 - Medications Medications: Current Medications Acetaminophen (Tylenol 650 Mg Supp) 650 mg RC Q4H PRN PRN Reason: Fever >100.4 F Amlodipine Besylate (Norvasc) 10 mg PO DAILY [facility] Last Admin: 09/29/17 09:29 Dose: 10 mg Apixaban (Eliquis) 5 mg PO BID [facility] Last Admin: 09/29/17 17:16 Dose: 5 mg Aspirin (Ecotrin) 81 mg PO DAILY [facility] Last Admin: 09/29/17 09:28 Dose: 81 mg Carvedilol (Coreg) 3.125 mg PO BID [facility] Last Admin: 09/29/17 17:16 Dose: 3.125 mg Collagenase (Santyl) 0 gm TOP DAILY [facility] Last Admin: 09/29/17 10:17 Dose: 1 unit Sodium Chloride (Sodium Chloride 0.9%) 1,000 mls @ 100 mls/hr IV .Q10H [facility] Last Admin: 09/28/17 01:24 Dose: 100 mls/hr Meropenem 1 gm/ Sodium (Chloride) 50 mls @ 100 mls/hr IVPB Q12 [facility] PRN Reason: Protocol Stop: 10/06/17 22:01 Last Admin: 09/29/17 22:05 Dose: 100 mls/hr Insulin Detemir (Levemir) 6 unit SC HS [facility] Last Admin: 09/29/17 22:19 Dose: 6 unit Insulin Human Lispro (Humalog Low) 0 units SC ACHS [facility] PRN Reason: Protocol Last Admin: 09/29/17 17:16 Dose: Not Given Insulin Lispro Protam/Lispro Human (Humalog Mix 75/25) 8 units SC ACD [facility] Last Admin: 09/29/17 17:15 Dose: 8 u Insulin Lispro Protam/Lispro Human (Humalog Mix 75/25) 14 units SC ACB [facility] Magnesium Oxide (Mag-Ox) 400 mg PO DAILY [facility] Last Admin: 09/29/17 09:28 Dose: 400 mg Oxycodone HCl (Oxycodone Immediate Release Tab) 10 mg PO Q6H [facility] PRN Reason: Pain, moderate (4-7) Pantoprazole Sodium (Protonix Ec Tab) 40 mg PO DAILY [facility] Last Admin: 09/29/17 09:28 Dose: 40 mg Rivastigmine (Exelon 9.5 Mg/24 Hr Patch) 1 patch TD DAILY [facility] Last Admin: 09/29/17 09:29 Dose: 1 patch Silver Sulfadiazine (Silvadene 1% 25 Gm) 1 gm TP DAILY [facility] Last Admin: 09/29/17 17:18 Dose: Not Given - Labs Labs: 09/29/17 22:25 09/28/17 06:30 PT 13.2 SECONDS (9.4-12.5) H 09/25/17 14:30 INR 1.21 (0.93-1.08) H 09/25/17 14:30 APTT 27.4 Seconds (25.1-36.5) 09/27/17 12:35 Micro Results 09/25/17 14:40 Blood-Venous Blood Culture - Preliminary NO GROWTH AFTER 4 DAYS 09/25/17 14:20 Blood-Venous Blood Culture - Preliminary NO GROWTH AFTER 4 DAYS 09/26/17 05:43 Arm - Right Gram Stain - Final 09/26/17 05:43 Arm - Right Wound Culture - Final Escherichia Coli Enterococcus Faecalis Most Recent Lab Values WBC 6.7 10^3/ul (4.5-11.0) 09/29/17 22:25 RBC 3.48 10^6/uL (3.5-6.1) L 09/29/17 22:25 Hgb 10.9 g/dL (14.0-18.0) L 09/29/17 22:25 Hct 32.6 % (42.0-52.0) L 09/29/17 22:25 MCV 93.7 fl (80.0-105.0) 09/29/17 22:25 MCH 31.3 pg (25.0-35.0) 09/29/17 22:25 MCHC 33.4 g/dl (31.0-37.0) 09/29/17 22:25 RDW 13.3 % (11.5-14.5) 09/29/17 22:25 Plt Count 120 10^3/uL (120.0-450.0) 09/29/17 22:25 MPV 10.5 fl (7.0-11.0) 09/29/17 22:25 Gran % 74.8 % (50.0-68.0) H 09/29/17 22:25 Lymph % (Auto) 15.5 % (22.0-35.0) L 09/29/17 22:25 [place] % (Auto) 8.3 % (1.0-6.0) H 09/29/17 22:25 Eos % (Auto) 1.2 % (1.5-5.0) L 09/29/17 22:25 Baso % (Auto) 0.2 % (0.0-3.0) 09/29/17 22:25 Gran # 4.98 (1.4-6.5) 09/29/17 22:25 Lymph # 1.0 (1.2-3.4) L 09/29/17 22:25 [place] # 0.6 (0.1-0.6) 09/29/17 22:25 Eos # 0.1 (0.0-0.7) 09/29/17 22:25 Baso # 0.01 K/mm3 (0.0-2.0) 09/29/17 22:25 PT 13.2 SECONDS (9.4-12.5) H 09/25/17 14:30 INR 1.21 (0.93-1.08) H 09/25/17 14:30 APTT 27.4 Seconds (25.1-36.5) 09/27/17 12:35 pCO2 25 mm/Hg (35-45) L 09/25/17 16:35 pO2 73.0 mm/Hg (80-100) L 09/25/17 16:35 HCO3 17.8 mmol/L (21-28) L 09/25/17 16:35 ABG pH 7.46 (7.35-7.45) H 09/25/17 16:35 ABG Total CO2 18.6 mmol.L (22-28) L 09/25/17 16:35 ABG O2 Saturation 97.6 % (95-98) 09/25/17 16:35 ABG O2 Content 13.0 ML/dl (15-23) L 09/25/17 16:35 ABG Base Excess -4.9 mmol/L (-2.0-3.0) L 09/25/17 16:35 ABG Hemoglobin 9.7 g/dL (11.7-17.4) L 09/25/17 16:35 ABG Carboxyhemoglobin 2.4 % (0.5-1.5) H 09/25/17 16:35 POC ABG HHb (Measured) 2.3 % (0-5) 09/25/17 16:35 ABG Methemoglobin 1.0 % (0.0-3.0) 09/25/17 16:35 ABG O2 Capacity 13.3 mL/dl (16-24) L 09/25/17 16:35 Hgb O2 Saturation 94.4 % (95.0-98.0) L 09/25/17 16:35 FiO2 21.0 % 09/25/17 16:35 Sodium 136 mmol/L (132-148) 09/28/17 06:30 Potassium 3.9 mmol/L (3.6-5.0) 09/28/17 06:30 Chloride 107 mmol/L (98-107) 09/28/17 06:30 Carbon Dioxide 21 mmol/L (21-33) 09/28/17 06:30 Anion Gap 12 (10-20) 09/28/17 06:30 BUN 25 mg/dL (7-21) H 09/28/17 06:30 Creatinine 1.7 mg/dl (0.8-1.5) H 09/28/17 06:30 Est GFR ( Amer) 48 09/28/17 06:30 Est GFR (Non-Af Amer) 40 09/28/17 06:30 POC Glucose (mg/dL) 284 mg/dL (65-110) H 09/29/17 21:32 Random Glucose 75 mg/dL (70-110) 09/28/17 06:30 Calcium 8.5 mg/dL (8.4-10.5) 09/28/17 06:30 Iron 42 ug/dL (45-180) L 09/28/17 06:30 TIBC 199 ug/dL (261-462) L 09/28/17 06:30 % Saturation 21 % (20-55) 09/28/17 06:30 Ferritin 274.0 ng/mL 09/28/17 06:30 Total Bilirubin 0.5 mg/dL (0.2-1.3) 09/27/17 10:30 AST 31 U/L (17-59) 09/27/17 10:30 ALT 42 U/L (7-56) 09/27/17 10:30 Alkaline Phosphatase 124 U/L (38-126) 09/27/17 10:30 Total Protein 4.9 g/dL (5.8-8.3) L 09/27/17 10:30 Albumin 2.4 g/dL (3.0-4.8) L 09/27/17 10:30 Globulin 2.5 gm/dL 09/27/17 10:30 Albumin/Globulin Ratio 1.0 (1.1-1.8) L 09/27/17 10:30 Vitamin B12 881 pg/mL (239-931) 09/28/17 06:30 - Constitutional Appears: Well, No Acute Distress - Head Exam Head Exam: ATRAUMATIC, NORMAL INSPECTION, NORMOCEPHALIC - Eye Exam Eye Exam: Normal appearance - ENT Exam ENT Exam: Normal External Ear Exam - Neck Exam Neck Exam: Normal Inspection - Respiratory Exam Respiratory Exam: NORMAL BREATHING PATTERN - Cardiovascular Exam Cardiovascular Exam: absent: JVD - GI/Abdominal Exam GI & Abdominal Exam: absent: Distended - Rectal Exam Rectal Exam: Deferred - Exam Additional comments: Deferred. - Extremities Exam Extremities Exam: Normal Inspection - Back Exam Back Exam: NORMAL INSPECTION - Neurological Exam Neurological Exam: Awake - Psychiatric Exam Psychiatric exam: Normal Affect, Normal Mood - Skin Skin Exam: Normal Color Assessment and Plan - Assessment and Plan (Free Text) Assessment: Fever. HTN. Renal insufficiency. Left ileofemoral DVT. Dehydration. Plan: Tylenol suppository as ordered. Septic work up as ordered. Continue present management.
--- NOTE | 2017-09-30 03:06 | PN ---
ENDOCRINOLOGY FOLLOWUP NOTE LOCATION: Room 564. This is a 71-year-old male admitted with lower extremity deep venous thrombosis and now involved because of recent hyperglycemic accelerations which have improved remarkably over the last few days noted. His glucose levels have ranged from 156 to 176, . Latest chemistry showed BUN of 25, 41, 36; calcium of 3.9; chloride 107; CO2 of 21, glucose 75, and creatinine 1.7. At this time, we will modify his basal and premixed insulin regimen, and lower the Humalog 75/25 to 14 units a.c. breakfast and 8 units a.c. dinner as ordered. We will also lower the basal insulin with Levemir down to 6 units subcutaneous at bedtime daily, we will start tonight. We will obtain preop chemistries and supplement accordingly as needed. We will also continue the low dose correction scale using Humalog insulin as given. We will follow with you. Andria Cortez MD
--- NOTE | 2017-09-30 03:36 | PN ---
DATE: 09/29/2017 SUBJECTIVE: He is comfortable in bed in no acute distress. He is non-communicative. Left leg swelling has decreased. Wound on the right arm grew E. coli. He is currently on antibiotics as per ID. He is afebrile. Denies any pain. REVIEW OF SYSTEMS: Could not be obtained as he is not communicative. PHYSICAL EXAMINATION: GENERAL: Comfortable in bed in no acute distress. VITAL SIGNS: Temperature is 98.5, heart rate is 70 per minute, blood pressure is 110/60, and pulse ox is 98% room air. HEENT: Oral mucosa dry. NECK: No lymphadenopathy. CHEST: Air entry present and equal bilaterally. No added sounds. CARDIOVASCULAR: S1 and S2 normal. No murmur. No gallop. ABDOMEN: Soft and nontender. No hepatosplenomegaly. EXTREMITIES: Left lower extremity swelling is decreased. SINK CUTTER: Not communicative. Awake. SKIN: No petechiae. No rash. LABORATORY DATA: White count 6.7, hemoglobin 10.9, hematocrit 32.6, and platelets 120. Glucose 284. MEDICATIONS: Tylenol 650 q.6 hours p.r.n., Norvasc 10 mg daily, Eliquis 5 mg p.o. b.i.d., Ecotrin 81 mg daily, Coreg 3.125 mg p.o. b.i.d., Levemir and regular insulin, meropenem, and IV fluids. ASSESSMENT: 1. Deep vein thrombosis, left lower extremity. 2. Hypercoagulable state. 3. Anemia. 4. Thrombocytopenia. 5. Advanced dementia. 6. Chronic kidney disease stage III. 7. Multiple decubitus ulcer, status post debridement on the right arm. PLAN: He will need lifelong anticoagulation. I would recommend continuing Eliquis at reduced doses 5 mg p.o. b.i.d. Due to chronic kidney disease, I will defer thrombophilia workup as it will not change the management because he will need lifelong anticoagulation as he is not ambulating. He has advanced dementia, currently on IV antibiotic as per ID. Renal function stable. Blood count stable. Thank you Dr. Dorman for allowing us to participate in Mr. Sampson's care. Monica Szymanski MD
[2017-09-30] MEDS ORDERED: Vancomycin 2 GM in Sodium Chloride 0.9% 500 ML IVPB ONE (06:54)
--- NOTE | 2017-09-30 08:07 | RAD ---
HISTORY: Temp 103*F COMPARISON: Chest radiographs 09/12/2017. FINDINGS: LUNGS: Increased density is seen at the inferior right lung zone without degrading the right heart border of the right hemidiaphragm margin. This may reflect a developing infiltrate or atelectasis with none identified the left. Clinically correlate further. PLEURA: No significant pleural effusion identified, no pneumothorax apparent. CARDIOVASCULAR: Normal. OSSEOUS STRUCTURES: Sternotomy wires again seen as well as mediastinal surgical clips. VISUALIZED UPPER ABDOMEN: Normal. OTHER FINDINGS: None. IMPRESSION: Potential developing atelectasis or infiltrate right base with remaining lung schultz clear. No acute cardiovascular changes appreciated.
[2017-09-30 08:17] LABS: HEMOGLOBIN 10.4 g/dL (14.0-18.0); MEAN PLATELET VOLUME 9.8 fl (7.0-11.0); RBC 3.35 10^6/uL (3.5-6.1); RED CELL DISTRIBUTION WIDTH 13.3 % (11.5-14.5); WHITE BLOOD COUNT 4.8 10^3/ul (4.5-11.0)
[2017-09-30 08:31] LABS: ALBUMIN 2.6 g/dL (3.0-4.8); CALCIUM 8.1 mg/dL (8.4-10.5)
[2017-09-30] MEDS: Insulin Lispro (humaLOG) LOW Coverage SC SCH ×4 (08:56→22:08)
[2017-09-30] MEDS: Magnesium Oxide 400 mg Tab UD PO SCH (09:15)
[2017-09-30] MEDS: Collagenase 250 Units/gm Ointment(30 gm) TOP SCH (09:18)
[2017-09-30] MEDS: Silver Sulfadiazine 1% Cream (25 gm) TP SCH (09:18)
[2017-09-30] MEDS: Pantoprazole 40 mg EC Tab PO SCH (09:23)
[2017-09-30] MEDS: Insulin Lispro (humaLOG) MIX 75/25(10 ml) SC SCH ×2 (11:03→17:10)
--- NOTE | 2017-09-30 12:32 | CARD ---
APPROVED REPORT EKG Measurement Heart [id number] <Conclusion> Sinus rhythm with occasional premature ventricular complexes Inferior infarct, age undetermined Abnormal ECG
--- NOTE | 2017-09-30 13:37 | CP.PCM.PN ---
Subjective - Date & Time of Evaluation Date of Evaluation: 09/30/17 Time of Evaluation: 12:05 - Subjective Subjective: Patient developed fever overnight, not in distress, no diarrhea, no vomiting. Objective - Vital Signs/Intake and Output Vital Signs (last 24 hours): Temp Pulse Resp BP Pulse Ox 100.3 F H 82 18 131/84 96 09/30/17 03:49 09/29/17 17:16 09/29/17 17:11 09/29/17 17:16 09/29/17 17:11 Intake and Output: 09/29/17 09/30/17 18:59 06:59 Intake Total 540 Output Total 300 Balance 240 - Medications Medications: Current Medications Acetaminophen (Tylenol 650 Mg Supp) 650 mg RC Q4H PRN PRN Reason: Fever >100.4 F Last Admin: 09/30/17 03:49 Dose: 650 mg Amlodipine Besylate (Norvasc) 10 mg PO DAILY [facility] Last Admin: 09/29/17 09:29 Dose: 10 mg Apixaban (Eliquis) 5 mg PO BID [facility] Last Admin: 09/29/17 17:16 Dose: 5 mg Aspirin (Ecotrin) 81 mg PO DAILY [facility] Last Admin: 09/29/17 09:28 Dose: 81 mg Carvedilol (Coreg) 3.125 mg PO BID [facility] Last Admin: 09/29/17 17:16 Dose: 3.125 mg Collagenase (Santyl) 0 gm TOP DAILY [facility] Last Admin: 09/29/17 10:17 Dose: 1 unit Sodium Chloride (Sodium Chloride 0.9%) 1,000 mls @ 100 mls/hr IV .Q10H [facility] Last Admin: 09/28/17 01:24 Dose: 100 mls/hr Meropenem 1 gm/ Sodium (Chloride) 50 mls @ 100 mls/hr IVPB Q12 [facility] PRN Reason: Protocol Stop: 10/06/17 22:01 Last Admin: 09/29/17 22:05 Dose: 100 mls/hr Vancomycin HCl 2 gm/ Sodium (Chloride) 500 mls @ 170 mls/hr IVPB ONCE ONE PRN Reason: Protocol Stop: 09/30/17 09:50 Insulin Detemir (Levemir) 6 unit SC HS [facility] Last Admin: 09/29/17 22:19 Dose: 6 unit Insulin Human Lispro (Humalog Low) 0 units SC [facility] PRN Reason: Protocol Last Admin: 09/29/17 22:00 Dose: Not Given Insulin Lispro Protam/Lispro Human (Humalog Mix 75/25) 8 units SC ACD [facility] Last Admin: 09/29/17 17:15 Dose: 8 u Insulin Lispro Protam/Lispro Human (Humalog Mix 75/25) 14 units SC ACB [facility] Magnesium Oxide (Mag-Ox) 400 mg PO DAILY [facility] Last Admin: 09/29/17 09:28 Dose: 400 mg Oxycodone HCl (Oxycodone Immediate Release Tab) 10 mg PO Q6H PRN PRN Reason: Pain, moderate (4-7) Pantoprazole Sodium (Protonix Ec Tab) 40 mg PO DAILY [facility] Last Admin: 09/29/17 09:28 Dose: 40 mg Rivastigmine (Exelon 9.5 Mg/24 Hr Patch) 1 patch TD DAILY [facility] Last Admin: 09/29/17 09:29 Dose: 1 patch Silver Sulfadiazine (Silvadene 1% 25 Gm) 1 gm TP DAILY [facility] Last Admin: 09/29/17 17:18 Dose: Not Given - Labs Labs: 09/29/17 22:25 09/28/17 06:30 PT 13.2 SECONDS (9.4-12.5) H 09/25/17 14:30 INR 1.21 (0.93-1.08) H 09/25/17 14:30 APTT 27.4 Seconds (25.1-36.5) 09/27/17 12:35 - Constitutional Appears: Chronically Ill - Head Exam Head Exam: NORMAL INSPECTION - ENT Exam ENT Exam: Mucous Membranes Moist - Neck Exam Neck Exam: absent: Meningismus - Respiratory Exam Respiratory Exam: Decreased Breath Sounds - Cardiovascular Exam Cardiovascular Exam: +S1, +S2 - GI/Abdominal Exam GI & Abdominal Exam: Soft. absent: Tenderness Assessment and Plan - Assessment and Plan (Free Text) Plan: Assessment Right upper arm skin and soft tissue infection with wound necrosis with E. coli and E. faecalis S/P debridement; new onset fever R/O new onset sepsis DVT DM Alzheimer's dementia CAD S/P CABG Plan on Merrem day 5 - will add Vancomycin for now and repeat blood, urine cx, PCT, CXR - will check rapid Influenza test since is complaining of flu-like illness will monitor clinically
[2017-09-30] MEDS: Insulin Detemir 100 units/ml Vial (Levemir) SC SCH (22:09)
[2017-09-30] MEDS: Sodium Chloride 0.9% 1,000 ML IV SCH (22:15)
--- NOTE | 2017-10-01 00:32 | PN ---
DATE: LOCATION: Room 564. SUBJECTIVE: This is a 71-year-old male with recent uncontrolled type 2 insulin-requiring diabetes, presenting here with lower extremity deep vein thrombosis and is now being followed closely for metabolic management. His glycemic levels are fluctuating, but much improved at this time and the latest glucose levels have ranged from 166 to 187 and 189 mg/dL. LABORATORY DATA: His latest chemistries shows a BUN of 23, sodium 136, potassium 4.3, chloride 107, CO2 of 20, glucose 164 and creatinine 1.8. PLAN: So at this time we will continue modified basal and pre-mixed insulin regimen to allow for dose equilibration and keep him on the Humalog 75/25 given as 14 units before breakfast, 8 units before dinner as ordered. We will continue the basal insulin with Levemir, give him 6 units subcutaneous at bedtime daily as ordered. We will titrate incrementally as indicated to optimize metabolic control. We will follow. Andria Cortez MD
[2017-10-01] MEDS: Insulin Lispro (humaLOG) LOW Coverage SC SCH ×4 (08:38→21:44)
[2017-10-01] MEDS: Insulin Lispro (humaLOG) MIX 75/25(10 ml) SC SCH ×2 (08:38→17:27)
[2017-10-01] MEDS: Pantoprazole 40 mg EC Tab PO SCH (11:37)
[2017-10-01] MEDS: Magnesium Oxide 400 mg Tab UD PO SCH (11:39)
[2017-10-01] MEDS: Silver Sulfadiazine 1% Cream (25 gm) TP SCH (11:40)
[2017-10-01] MEDS: Sodium Chloride 0.9% 1,000 ML IV SCH (11:41)
[2017-10-01] MEDS: Collagenase 250 Units/gm Ointment(30 gm) TOP SCH (11:41)
--- NOTE | 2017-10-01 13:42 | CT ---
PROCEDURE: CT Chest without contrast HISTORY: ?pne COMPARISON: Comparison is made with the previous portable chest x-ray dated 09/29/2017 TECHNIQUE: Contiguous axial images were obtained through the chest without intravenous contrast enhancement. Sagittal and coronal reconstructions were performed. Radiation dose (DLP): 401.87 mGy-cm. This CT exam was performed using one or more of the following dose reduction techniques: Automated exposure control, adjustment of the mA and/or kV according to patient size, and/or use of iterative reconstruction technique. FINDINGS: LUNGS: There are pleural base nodules seen along the right lesser and greater fissure. Partial atelectasis of the right lower and middle lobe due to pleural effusion is noted. Left lung base consolidation likely atelectasis is also noted. MEDIASTINUM: The thoracic aorta and aortic arch is ectatic and tortuous. The heart is mildly to moderately enlarged. The main pulmonary artery is mildly enlarged. There are mild mediastinal lymphadenopathy. PLEURA: There is large right pleural effusion. There is also small left pleural effusion. BONES: No fracture. No destructive lesion. UPPER ABDOMEN: There are multiple mass lesions in the liver suspicious for metastasis. OTHER FINDINGS: None. IMPRESSION: No evidence of pneumonia in the visualized portion of the lungs. Pleural-based nodules seen in the right chest. Large right and small left pleural effusions. Multiple mass lesions noted in the liver suspicious for metastasis. Dedicated CT of the abdomen and pelvis with contrast is suggested for further evaluation.
--- NOTE | 2017-10-01 13:51 | CP.PCM.PN ---
Subjective - Date & Time of Evaluation Date of Evaluation: 10/01/17 Time of Evaluation: 12:35 - Subjective Subjective: Patient still spiking fevers, not in distress. Objective - Vital Signs/Intake and Output Vital Signs (last 24 hours): Temp Pulse Resp BP Pulse Ox 100.8 F H 70 20 130/72 96 10/01/17 01:07 09/30/17 17:10 09/30/17 16:00 09/30/17 17:10 09/30/17 16:00 Intake and Output: 10/01/17 10/01/17 06:59 18:59 Intake Total 240 Balance 240 - Medications Medications: Current Medications Acetaminophen (Tylenol 650 Mg Supp) 650 mg RC Q4H PRN PRN Reason: Fever >100.4 F Last Admin: 10/01/17 00:07 Dose: 650 mg Amlodipine Besylate (Norvasc) 10 mg PO DAILY [facility] Last Admin: 09/30/17 09:24 Dose: 10 mg Apixaban (Eliquis) 5 mg PO BID [facility] Last Admin: 09/30/17 17:10 Dose: 5 mg Aspirin (Ecotrin) 81 mg PO DAILY [facility] Last Admin: 09/30/17 09:15 Dose: 81 mg Carvedilol (Coreg) 3.125 mg PO BID [facility] Last Admin: 09/30/17 17:10 Dose: 3.125 mg Collagenase (Santyl) 0 gm TOP DAILY [facility] Last Admin: 09/30/17 09:18 Dose: 1 unit Sodium Chloride (Sodium Chloride 0.9%) 1,000 mls @ 100 mls/hr IV .Q10H [facility] Last Admin: 09/30/17 22:15 Dose: Not Given Meropenem 1 gm/ Sodium (Chloride) 50 mls @ 100 mls/hr IVPB Q12 [facility] PRN Reason: Protocol Stop: 10/06/17 22:01 Last Admin: 09/30/17 22:07 Dose: 100 mls/hr Insulin Detemir (Levemir) 6 unit SC HS [facility] Last Admin: 09/30/17 22:09 Dose: 6 unit Insulin Human Lispro (Humalog Low) 0 units SC [facility] PRN Reason: Protocol Last Admin: 10/01/17 08:38 Dose: Not Given Insulin Lispro Protam/Lispro Human (Humalog Mix 75/25) 8 units SC ACD [facility] Last Admin: 09/30/17 17:10 Dose: 8 u Insulin Lispro Protam/Lispro Human (Humalog Mix 75/25) 14 units SC ACB [facility] Last Admin: 10/01/17 08:38 Dose: Not Given Magnesium Oxide (Mag-Ox) 400 mg PO DAILY [facility] Last Admin: 09/30/17 09:15 Dose: 400 mg Pantoprazole Sodium (Protonix Ec Tab) 40 mg PO DAILY [facility] Last Admin: 09/30/17 09:23 Dose: 40 mg Rivastigmine (Exelon 9.5 Mg/24 Hr Patch) 1 patch TD DAILY [facility] Last Admin: 09/30/17 09:16 Dose: 1 patch Silver Sulfadiazine (Silvadene 1% 25 Gm) 1 gm TP DAILY [facility] Last Admin: 09/30/17 09:18 Dose: Not Given - Labs Labs: 09/30/17 08:00 09/30/17 08:00 PT 13.2 SECONDS (9.4-12.5) H 09/25/17 14:30 INR 1.21 (0.93-1.08) H 09/25/17 14:30 APTT 27.4 Seconds (25.1-36.5) 09/27/17 12:35 - Constitutional Appears: Chronically Ill - Head Exam Head Exam: NORMAL INSPECTION - Neck Exam Neck Exam: absent: Meningismus - Respiratory Exam Respiratory Exam: Decreased Breath Sounds - Cardiovascular Exam Cardiovascular Exam: +S1, +S2 - GI/Abdominal Exam GI & Abdominal Exam: Soft. absent: Tenderness Assessment and Plan - Assessment and Plan (Free Text) Plan: Assessment Right upper arm skin and soft tissue infection with wound necrosis with E. coli and E. faecalis S/P debridement; new onset fever R/O new onset sepsis R/O pneumonia DVT DM Alzheimer's dementia CAD S/P CABG Plan on Merrem day 6 and continue Vancomycin day 2; repeat blood negative so far, rapid Influenza test is negative; follow up urine cx, PCT, CT chest will monitor clinically
--- NOTE | 2017-10-01 14:53 | PN ---
DATE: SUBJECTIVE: A 71-year-old white male with blistering skin disease infections, renal insufficiency, insulin-dependent diabetes mellitus, dementia, and DVT of the left leg on Eliquis. PHYSICAL EXAMINATION: GENERAL: The patient is not communicative. VITAL SIGNS: Temperature 100.8 recent spike in the last 24 to 48 hours and blood pressure 130/72. Kidney function has improved to 23 and 1.8, blood sugar is 164. White count is 4.8. The patient is on IV antibiotics as directed by Dr. Jamison from Infectious Disease. He is doing some physical therapy, occupational therapy. He is continuing anticoagulation medication for his DVT of the left iliofemoral region of the left lower extremity. PLAN: Plan is to continue IV antibiotics, blood cultures, wound cultures, and continue treatment of his DVT. Jama Dorman MD
[2017-10-01] MEDS: Insulin Detemir 100 units/ml Vial (Levemir) SC SCH (21:45)
--- NOTE | 2017-10-02 02:16 | PN ---
DATE: ENDOCRINOLOGY FOLLOWUP NOTE LOCATION: Room 564. SUBJECTIVE: This is a 71-year-old male with recent uncontrolled type 2 insulin-requiring diabetes, now being followed closely for metabolic management. He also has ongoing management for a recent left leg deep vein thrombosis as noted thereof. His glycemic levels are fluctuating but much improved at this time and the latest glucose levels have ranged from 139 to 189 mg/dL. His latest chemistry showed a BUN of 23, sodium 136, potassium 4.3, chloride 107, CO2 of 22, glucose 164 and creatinine 1.8. So at this time, we will continue the same basal and premixed insulin regimen as ordered. We will keep the Levemir at 6 units subcu at bedtime daily as given. We will also continue the premixed insulin regimen with Humalog 75/25 given as 14 units a.c. breakfast and 8 units a.c. dinner as ordered. We will also continue the low-dose correction scale using Humalog insulin as given. We will obtain serial chemistries and supplement accordingly as needed. We will follow. Andria Cortez MD
[2017-10-02] MEDS: Insulin Lispro (humaLOG) LOW Coverage SC SCH ×4 (07:57→22:00)
[2017-10-02] MEDS: Insulin Lispro (humaLOG) MIX 75/25(10 ml) SC SCH ×2 (07:57→16:59)
[2017-10-02] MEDS: Magnesium Oxide 400 mg Tab UD PO SCH (09:03)
[2017-10-02] MEDS: Meropenem IV 1 gm in NS 50 ML IVPB SCH ×2 (09:04→21:14)
[2017-10-02] MEDS: Pantoprazole 40 mg EC Tab PO SCH (09:04)
[2017-10-02] MEDS: Collagenase 250 Units/gm Ointment(30 gm) TOP SCH (09:05)
[2017-10-02] MEDS: Silver Sulfadiazine 1% Cream (25 gm) TP SCH (09:05)
[2017-10-02] MEDS ORDERED: Meropenem IV 1 gm in NS 50 ML IVPB SCH (10:00)
--- NOTE | 2017-10-02 12:15 | PN ---
DATE: SUBJECTIVE: A 71-year-old [place] male admitted to the hospital with multiple infected sores on his arms, chest and feet, hyperglycemia, dementia, and left iliofemoral DVT. He is being treated for the DVT. He continues on IV antibiotics. OBJECTIVE: He has a low-grade temperature of 99.1. LABORATORY DATA: White count is 4.8. BUN and creatinine are stabilized at 23 and 1.8. IMPRESSION AND PLAN: Plan is to continue antibiotics, physical therapy, occupational therapy and treatment of his deep venous thrombosis. Jama Dorman MD
--- NOTE | 2017-10-02 13:25 | PN ---
DATE: 10/02/2017 LOCATION: 564. SUBJECTIVE: This is a 71-year-old male with recent uncontrolled type 2 insulin-requiring diabetes, presenting here with lower extremity deep vein thrombosis and is now being followed closely for metabolic management. His glycemic levels are fluctuating, but improved on the range from 187 to 189. . His chemistry showed a BUN of 23, sodium 136, potassium 4.3, chloride 107, CO2 22, glucose 164, and creatinine 1.8. So at this time, we will continue the ____ insulin regimen with Humalog 75/25 to be given at 16 units before breakfast and 10 units before dinner to start today. We will discontinue the all night basal insulin with Levemir, given 6 units subcutaneous at bedtime daily as ordered. We will continue the low-dose correction scale using Humalog insulin. We will follow and advise accordingly. Andria Cortez MD
--- NOTE | 2017-10-02 13:46 | CP.PCM.PN ---
Subjective - Date & Time of Evaluation Date of Evaluation: 10/02/17 Time of Evaluation: 12:20 - Subjective Subjective: Comfortable in bed, still having intermittent fevers. Objective - Vital Signs/Intake and Output Vital Signs (last 24 hours): Temp Pulse Resp BP Pulse Ox 99.1 F 94 H 19 148/85 95 10/02/17 07:30 10/02/17 09:03 10/02/17 07:30 10/02/17 09:03 10/02/17 07:30 Intake and Output: 10/02/17 10/02/17 06:59 18:59 Intake Total 660 Balance 660 - Medications Medications: Current Medications Acetaminophen (Tylenol 650 Mg Supp) 650 mg RC Q4H PRN PRN Reason: Fever >100.4 F Last Admin: 10/01/17 12:46 Dose: 650 mg Amlodipine Besylate (Norvasc) 10 mg PO DAILY [facility] Last Admin: 10/02/17 09:03 Dose: 10 mg Apixaban (Eliquis) 5 mg PO BID [facility] Last Admin: 10/02/17 09:04 Dose: 5 mg Aspirin (Ecotrin) 81 mg PO DAILY [facility] Last Admin: 10/02/17 09:03 Dose: 81 mg Carvedilol (Coreg) 3.125 mg PO BID [facility] Last Admin: 10/02/17 09:03 Dose: 3.125 mg Collagenase (Santyl) 0 gm TOP DAILY [facility] Last Admin: 10/02/17 09:05 Dose: 1 unit Sodium Chloride (Sodium Chloride 0.9%) 1,000 mls @ 100 mls/hr IV .Q10H [facility] Last Admin: 10/01/17 11:41 Dose: 100 mls/hr Meropenem (Merrem Iv 1 Gm Premix) 50 mls @ 100 mls/hr IVPB Q12 [facility] Stop: 10/06/17 22:01 Last Admin: 10/02/17 09:04 Dose: 100 mls/hr Insulin Human Lispro (Humalog Low) 0 units SC A[facility] PRN Reason: Protocol Last Admin: 10/02/17 07:57 Dose: Not Given Insulin Lispro Protam/Lispro Human (Humalog Mix 75/25) 16 units SC ACB [facility] Last Admin: 10/02/17 07:57 Dose: 16 units Insulin Lispro Protam/Lispro Human (Humalog Mix 75/25) 10 units SC ACD [facility] Magnesium Oxide (Mag-Ox) 400 mg PO DAILY [facility] Last Admin: 10/02/17 09:03 Dose: 400 mg Pantoprazole Sodium (Protonix Ec Tab) 40 mg PO DAILY [facility] Last Admin: 10/02/17 09:04 Dose: 40 mg Rivastigmine (Exelon 9.5 Mg/24 Hr Patch) 1 patch TD DAILY [facility] Last Admin: 10/02/17 09:04 Dose: 1 patch Silver Sulfadiazine (Silvadene 1% 25 Gm) 1 gm TP DAILY [facility] Last Admin: 10/02/17 09:05 Dose: 1 gm - Labs Labs: 09/30/17 08:00 09/30/17 08:00 PT 13.2 SECONDS (9.4-12.5) H 09/25/17 14:30 INR 1.21 (0.93-1.08) H 09/25/17 14:30 APTT 27.4 Seconds (25.1-36.5) 09/27/17 12:35 - Constitutional Appears: Non-toxic, No Acute Distress - Head Exam Head Exam: NORMAL INSPECTION - ENT Exam ENT Exam: Mucous Membranes Moist - Neck Exam Neck Exam: absent: Meningismus - Respiratory Exam Respiratory Exam: Decreased Breath Sounds - Cardiovascular Exam Cardiovascular Exam: +S1, +S2 - GI/Abdominal Exam GI & Abdominal Exam: Soft. absent: Tenderness - Extremities Exam Additional comments: right arm wound is clean Assessment and Plan - Assessment and Plan (Free Text) Plan: Assessment Right upper arm skin and soft tissue infection with wound necrosis with E. coli and E. faecalis S/P debridement; new onset fever R/O new onset sepsis R/O pneumonia DVT DM Alzheimer's dementia CAD S/P CABG Plan on Merrem day 7 and started Zyvox; repeat blood negative so far, rapid Influenza test is negative; CT chest does not show pneumonia will continue to monitor clinically and trend fever curve
[2017-10-02] MEDS: Sodium Chloride 0.9% 1,000 ML IV SCH ×2 (18:08→22:47)
[2017-10-02] MEDS: Linezolid 600 mg in D5W 300 ml 600 MG/300 ML BAG IVPB SCH (22:48)
[2017-10-03] MEDS: Insulin Lispro (humaLOG) LOW Coverage SC SCH ×4 (07:58→21:00)
[2017-10-03] MEDS: Insulin Lispro (humaLOG) MIX 75/25(10 ml) SC SCH ×2 (07:58→17:23)
[2017-10-03] MEDS: Magnesium Oxide 400 mg Tab UD PO SCH (09:09)
[2017-10-03] MEDS: Linezolid 600 mg in D5W 300 ml 600 MG/300 ML BAG IVPB SCH ×2 (09:09→22:29)
[2017-10-03] MEDS: Pantoprazole 40 mg EC Tab PO SCH (09:10)
[2017-10-03] MEDS: Silver Sulfadiazine 1% Cream (25 gm) TP SCH (09:11)
[2017-10-03] MEDS: Collagenase 250 Units/gm Ointment(30 gm) TOP SCH (09:12)
[2017-10-03] MEDS: Meropenem IV 1 gm in NS 50 ML IVPB SCH ×2 (10:46→21:17)
--- NOTE | 2017-10-03 12:01 | PN ---
DATE: SUBJECTIVE: A 71-year-old male with profound dementia, recent acute renal failure, recent blistering disease of the skin, now with eschars and deep ulcerations of the right upper arm, the right anterior chest, and the left foot. The eschar on the right upper arm is open and draining purulent material. There is no evidence of cellulitis. He is also being treated for DVT of the left iliofemoral vein. The patient is barely, normally nonverbal. PHYSICAL EXAMINATION: VITAL SIGNS: Vital signs are stable today, temperature 98.8. LABORATORY DATA: White count is 4.8. Kidney function is 23 and 1.8. Blood sugar is down to 164. PLAN: He is to continue local wound care and IV antibiotics. Continue Eliquis for his DVT. Jama Dorman MD
--- NOTE | 2017-10-03 12:48 | CP.PCM.PN ---
Subjective - Date & Time of Evaluation Date of Evaluation: 10/03/17 Time of Evaluation: 12:00 - Subjective Subjective: Still had low grade fever last night, not in distress. Objective - Vital Signs/Intake and Output Vital Signs (last 24 hours): Temp Pulse Resp BP Pulse Ox 98.9 F 119 H 16 168/110 H 95 10/03/17 07:30 10/03/17 09:10 10/03/17 07:30 10/03/17 09:10 10/03/17 07:30 Intake and Output: 10/03/17 10/03/17 06:59 18:59 Intake Total 2760 Balance 2760 - Medications Medications: Current Medications Acetaminophen (Tylenol 650 Mg Supp) 650 mg RC Q4H PRN PRN Reason: Fever >100.4 F Last Admin: 10/03/17 00:14 Dose: 650 mg Amlodipine Besylate (Norvasc) 10 mg PO DAILY [facility] Last Admin: 10/03/17 09:10 Dose: 10 mg Apixaban (Eliquis) 5 mg PO BID [facility] Last Admin: 10/03/17 09:10 Dose: 5 mg Aspirin (Ecotrin) 81 mg PO DAILY [facility] Last Admin: 10/03/17 09:10 Dose: 81 mg Carvedilol (Coreg) 3.125 mg PO BID [facility] Last Admin: 10/03/17 09:10 Dose: 3.125 mg Collagenase (Santyl) 0 gm TOP DAILY [facility] Last Admin: 10/03/17 09:12 Dose: 1 unit Sodium Chloride (Sodium Chloride 0.9%) 1,000 mls @ 100 mls/hr IV .Q10H [facility] Last Admin: 10/02/17 22:47 Dose: 100 mls/hr Meropenem (Merrem Iv 1 Gm Premix) 50 mls @ 100 mls/hr IVPB Q12 [facility] Stop: 10/06/17 22:01 Last Admin: 10/03/17 10:46 Dose: 100 mls/hr Linezolid (Zyvox 600mg/300ml D5w) 600 mg in 300 mls @ 200 mls/hr IVPB Q12 [facility] PRN Reason: Protocol Stop: 10/09/17 22:01 Last Admin: 10/03/17 09:09 Dose: 200 mls/hr Insulin Human Lispro (Humalog Low) 0 units SC ACHS [facility] PRN Reason: Protocol Last Admin: 10/03/17 07:58 Dose: Not Given Insulin Lispro Protam/Lispro Human (Humalog Mix 75/25) 16 units SC ACB [facility] Last Admin: 10/03/17 07:58 Dose: Not Given Insulin Lispro Protam/Lispro Human (Humalog Mix 75/25) 10 units SC ACD [facility] Last Admin: 10/02/17 16:59 Dose: 10 units Magnesium Oxide (Mag-Ox) 400 mg PO DAILY [facility] Last Admin: 10/03/17 09:09 Dose: 400 mg Pantoprazole Sodium (Protonix Ec Tab) 40 mg PO DAILY [facility] Last Admin: 10/03/17 09:10 Dose: 40 mg Rivastigmine (Exelon 9.5 Mg/24 Hr Patch) 1 patch TD DAILY [facility] Last Admin: 10/03/17 09:06 Dose: 1 patch Silver Sulfadiazine (Silvadene 1% 25 Gm) 1 gm TP DAILY [facility] Last Admin: 10/03/17 09:11 Dose: 1 gm - Labs Labs: 09/30/17 08:00 09/30/17 08:00 PT 13.2 SECONDS (9.4-12.5) H 09/25/17 14:30 INR 1.21 (0.93-1.08) H 09/25/17 14:30 APTT 27.4 Seconds (25.1-36.5) 09/27/17 12:35 - Constitutional Appears: Chronically Ill - Head Exam Head Exam: NORMAL INSPECTION - Neck Exam Neck Exam: absent: Meningismus - Respiratory Exam Respiratory Exam: Decreased Breath Sounds - Cardiovascular Exam Cardiovascular Exam: +S1, +S2 - GI/Abdominal Exam GI & Abdominal Exam: Soft. absent: Tenderness Assessment and Plan - Assessment and Plan (Free Text) Plan: Assessment Right upper arm skin and soft tissue infection with wound necrosis with E. coli and E. faecalis S/P debridement; new onset fever R/O new onset sepsis R/O pneumonia DVT DM Alzheimer's dementia CAD S/P CABG Plan on Merrem day 8 and Zyvox day 2; repeat blood negative so far, rapid Influenza test is negative; CT chest does not show pneumonia right arm and right chest wounds look clean will continue to monitor clinically and trend fever curve
--- NOTE | 2017-10-03 14:01 | PN ---
LOCATION: Room 564. SUBJECTIVE: This is a 71-year-old male with recent uncontrolled type 2 insulin requiring diabetes presenting here with left lower extremity deep vein thrombosis and is now being followed closely for metabolic management. His glycemic levels are fluctuating but improved and have ranged from 103 to 233 and 262 mg/dL. It was 154 at bedtime. His latest chemistry showed a BUN of 23, sodium 136, potassium 4.3, chloride 107, CO2 of 22, glucose 164, and creatinine 1.8. So this time, we will continue the same basal and premixed insulin regimen as ordered with Humalog 75/25 given at 16 units before breakfast and 10 units before dinner as ordered. We will titrate . We will obtain preop chemistries and supplement accordingly as needed. We will follow with you. Andria Cortez MD
[2017-10-03] MEDS: Sodium Chloride 0.9% 1,000 ML IV SCH (21:17)
[2017-10-04] MEDS: Insulin Lispro (humaLOG) LOW Coverage SC SCH ×3 (08:55→17:38)
[2017-10-04] MEDS: Sodium Chloride 0.9% 1,000 ML IV SCH (08:56)
[2017-10-04] MEDS: Insulin Lispro (humaLOG) MIX 75/25(10 ml) SC SCH ×2 (08:56→17:38)
[2017-10-04 09:25] LABS: BASO # 0.01 K/mm3 (0.0-2.0); BASO % 0.2 % (0.0-3.0); EOS # 0.1 (0.0-0.7); EOS % 2.4 % (1.5-5.0); GRAN # 2.62 (1.4-6.5); GRAN % 58.4 % (50.0-68.0); HEMOGLOBIN 9.3 g/dL (14.0-18.0); LYMPH # 1.3 (1.2-3.4); MEAN CELL VOLUME 92.4 fl (80.0-105.0); MEAN CORPUSCULAR HEMOGLOBIN 30.7 pg (25.0-35.0); MEAN CORPUSCULAR HGB CONC 33.2 g/dl (31.0-37.0); MEAN PLATELET VOLUME 10.3 fl (7.0-11.0); MONO # 0.5 (0.1-0.6); RBC 3.03 10^6/uL (3.5-6.1); RED CELL DISTRIBUTION WIDTH 13.1 % (11.5-14.5); WHITE BLOOD COUNT 4.5 10^3/ul (4.5-11.0)
[2017-10-04 09:56] LABS: ALBUMIN 2.4 g/dL (3.0-4.8)
[2017-10-04] MEDS: Collagenase 250 Units/gm Ointment(30 gm) TOP SCH ×2 (10:00→12:52)
--- NOTE | 2017-10-04 11:22 | PN ---
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 The patient also recently found to have CT of the chest showing liver metastasis and lung nodules. The patient will be having dedicated CT of the abdomen. The patient will also have a liver biopsy done by Dr. Mason Acosta. PHYSICAL EXAMINATION: Unchanged. The patient is more lethargic, more confused, more disoriented. He is nonverbal. He has not been verbal for sometime. He said short words. Case was discussed with the family. The patient will be sent to CT today. Jama Dorman MD
--- NOTE | 2017-10-04 12:02 | CT ---
PROCEDURE: CT Abdomen and Pelvis without intravenous contrast HISTORY: Liver lesions COMPARISON: 10/01/2017 CT thorax TECHNIQUE: Unenhanced study. Neither oral nor intravenous contrast administered. Sensitivity and specificity for acute inflammatory processes limited by the absence of oral and intravenous contrast. This further degrades the quality of this study for assessment of known liver lesions Radiation dose: Total exam DLP = 1023.51 mGy-cm. This CT exam was performed using one or more of the following dose reduction techniques: Automated exposure control, adjustment of the mA and/or kV according to patient size, and/or use of iterative reconstruction technique. FINDINGS: LOWER THORAX: Persistent bilateral pleural effusions right larger than left and associated compressive atelectasis. No appreciable change LIVER: Re- demonstration of multiple liver masses which cannot be further characterize in the absence of intravenous contrast and artifact related to patient positioning of aunts resulting in considerable streak artifact across the upper abdomen. GALLBLADDER AND BILE DUCTS: Unremarkable. PANCREAS: Unremarkable. No gross lesion or ductal dilatation. SPLEEN: Unremarkable. ADRENALS: Unremarkable. No mass. KIDNEYS AND URETERS: Unremarkable. No hydronephrosis. No solid mass. Right renal cysts upper pole medially with calcified rim measuring 3 cm. VASCULATURE: Unremarkable. No aortic aneurysm. BOWEL: Fecal impaction, constipation without mechanical obstruction. APPENDIX: Unremarkable. Normal appendix. PERITONEUM: Trace intra-abdominal and pelvic ascites. No free air. LYMPH NODES: Unremarkable. No enlarged lymph nodes. BLADDER: Unremarkable. REPRODUCTIVE: Unremarkable. BONES: No acute fracture. OTHER FINDINGS: Diffuse anasarca. Postoperative findings related to right inguinal hernia repair. IMPRESSION: Confirmation of multiple hepatic masses in both lobes of the liver the largest partially obscured measuring approximately 3.5 cm. Stable bilateral pleural effusions and underlying compressive atelectasis right greater than left. Trace intra-abdominal and pelvic ascites. Moderate anasarca. Fecal impaction, constipation. Limitations of the current examination: Absence of oral and intravenous contrast.
[2017-10-04] MEDS: Linezolid 600 mg in D5W 300 ml 600 MG/300 ML BAG IVPB SCH ×2 (12:43→22:32)
[2017-10-04] MEDS: Meropenem IV 1 gm in NS 50 ML IVPB SCH ×2 (12:44→21:57)
[2017-10-04] MEDS: Magnesium Oxide 400 mg Tab UD PO SCH (12:51)
[2017-10-04] MEDS: Pantoprazole 40 mg EC Tab PO SCH (12:52)
[2017-10-04] MEDS: Silver Sulfadiazine 1% Cream (25 gm) TP SCH (12:52)
--- NOTE | 2017-10-04 13:46 | PN ---
DATE: ENDOCRINOLOGY FOLLOWUP NOTE LOCATION: Room 564. SUBJECTIVE: This is a 71-year-old male with recent uncontrolled type 2 insulin requiring diabetes now being followed closely for metabolic management. His glycemic levels are fluctuating, improved, and latest glucose levels have ranged from 217 to 273 mg/dL. LABORATORY DATA: The latest chemistry showed a BUN of 26, sodium 134, potassium 4.3, chloride 105, CO2 of 22, glucose 205, and creatinine 1.7. PLAN: So at this time, we will modify his basal and premixed regimen and increase the Humalog 75/25 to 20 units before breakfast and 14 units before dinner to start today. We will continue the low dose correction scale using Humalog insulin as given. We will titrate incrementally as indicated to optimize metabolic control. We will obtain serial chemistries and supplement accordingly as needed. We will follow with you. Andria Cortez MD
--- NOTE | 2017-10-04 17:03 | CP.PCM.PN ---
Subjective - Date & Time of Evaluation Date of Evaluation: 10/04/17 Time of Evaluation: 13:20 - Subjective Subjective: Comfortable, no fevers overnight, not in distress. Objective - Vital Signs/Intake and Output Vital Signs (last 24 hours): Temp Pulse Resp BP Pulse Ox 99.0 F 89 20 132/70 96 10/04/17 07:30 10/04/17 07:30 10/04/17 07:30 10/04/17 07:30 10/04/17 07:30 Intake and Output: 10/04/17 10/04/17 06:59 18:59 Intake Total 2820 Balance 2820 - Medications Medications: Current Medications Acetaminophen (Tylenol 650 Mg Supp) 650 mg RC Q4H PRN PRN Reason: Fever >100.4 F Last Admin: 10/03/17 00:14 Dose: 650 mg Amlodipine Besylate (Norvasc) 10 mg PO DAILY [facility] Last Admin: 10/03/17 09:10 Dose: 10 mg Apixaban (Eliquis) 5 mg PO BID [facility] Last Admin: 10/03/17 17:21 Dose: 5 mg Aspirin (Ecotrin) 81 mg PO DAILY [facility] Last Admin: 10/03/17 09:10 Dose: 81 mg Carvedilol (Coreg) 3.125 mg PO BID [facility] Last Admin: 10/03/17 17:21 Dose: 3.125 mg Collagenase (Santyl) 0 gm TOP DAILY [facility] Last Admin: 10/03/17 09:12 Dose: 1 unit Sodium Chloride (Sodium Chloride 0.9%) 1,000 mls @ 100 mls/hr IV .Q10H [facility] Last Admin: 10/04/17 08:56 Dose: 100 mls/hr Meropenem (Merrem Iv 1 Gm Premix) 50 mls @ 100 mls/hr IVPB Q12 [facility] Stop: 10/06/17 22:01 Last Admin: 10/03/17 21:17 Dose: 100 mls/hr Linezolid (Zyvox 600mg/300ml D5w) 600 mg in 300 mls @ 200 mls/hr IVPB Q12 [facility] PRN Reason: Protocol Stop: 10/09/17 22:01 Last Admin: 10/03/17 22:29 Dose: 200 mls/hr Insulin Human Lispro (Humalog Low) 0 units SC ACHS [facility] PRN Reason: Protocol Last Admin: 10/04/17 08:55 Dose: 2 units Insulin Lispro Protam/Lispro Human (Humalog Mix 75/25) 14 units SC ACD [facility] Insulin Lispro Protam/Lispro Human (Humalog Mix 75/25) 20 units SC ACB [facility] Magnesium Oxide (Mag-Ox) 400 mg PO DAILY [facility] Last Admin: 10/03/17 09:09 Dose: 400 mg Pantoprazole Sodium (Protonix Ec Tab) 40 mg PO DAILY [facility] Last Admin: 10/03/17 09:10 Dose: 40 mg Rivastigmine (Exelon 9.5 Mg/24 Hr Patch) 1 patch TD DAILY [facility] Last Admin: 10/03/17 09:06 Dose: 1 patch Silver Sulfadiazine (Silvadene 1% 25 Gm) 1 gm TP DAILY [facility] Last Admin: 10/03/17 09:11 Dose: 1 gm - Labs Labs: 10/04/17 09:00 10/04/17 09:00 PT 13.2 SECONDS (9.4-12.5) H 09/25/17 14:30 INR 1.21 (0.93-1.08) H 09/25/17 14:30 APTT 27.4 Seconds (25.1-36.5) 09/27/17 12:35 - Constitutional Appears: Chronically Ill - Head Exam Head Exam: NORMAL INSPECTION - Respiratory Exam Respiratory Exam: Decreased Breath Sounds - Cardiovascular Exam Cardiovascular Exam: +S1, +S2 - GI/Abdominal Exam GI & Abdominal Exam: Soft. absent: Tenderness Assessment and Plan - Assessment and Plan (Free Text) Plan: Assessment Right upper arm skin and soft tissue infection with wound necrosis with E. coli and E. faecalis S/P debridement; new onset fever R/O new onset sepsis R/O pneumonia multiple liver masses DVT DM Alzheimer's dementia CAD S/P CABG Plan on Merrem day 9 and Zyvox day 3; repeat blood negative so far, rapid Influenza test is negative; CT chest does not show pneumonia right arm and right chest wounds look clean for biopsy of liver masses will continue to monitor clinically
[2017-10-05] MEDS: Insulin Lispro (humaLOG) MIX 75/25(10 ml) SC SCH ×2 (08:00→17:11)
[2017-10-05] MEDS: Insulin Lispro (humaLOG) LOW Coverage SC SCH ×4 (08:00→22:02)
[2017-10-05] MEDS: POLYETHYLENE GLYCOL 3350 17 GM/Dose PACKET PO SCH (09:56)
[2017-10-05] MEDS: Meropenem IV 1 gm in NS 50 ML IVPB SCH ×2 (09:56→22:14)
[2017-10-05] MEDS: Magnesium Oxide 400 mg Tab UD PO SCH (09:56)
[2017-10-05] MEDS: Silver Sulfadiazine 1% Cream (25 gm) TP SCH (09:57)
[2017-10-05] MEDS: Linezolid 600 mg in D5W 300 ml 600 MG/300 ML BAG IVPB SCH (09:58)
[2017-10-05] MEDS: Pantoprazole 40 mg EC Tab PO SCH (09:59)
[2017-10-05] MEDS: Collagenase 250 Units/gm Ointment(30 gm) TOP SCH (09:59)
--- NOTE | 2017-10-05 13:00 | PN ---
DATE: ENDOCRINOLOGY FOLLOWUP NOTE LOCATION: Room 564. SUBJECTIVE: This is a 71-year-old male with recent uncontrolled type 2 insulin requiring diabetes now being followed closely for metabolic management. His glycemic levels are fluctuating, but improved. The latest glucose have ranged from 194 to 208 and 236 mg/dL. LABORATORY DATA: His latest chemistry showed a BUN of 26, sodium 134, potassium 4.3, chloride 105, CO2 of 22, glucose 205, and creatinine 1.7. PLAN: So at this time, we will continue the same premixed insulin regimen to allow for dose equilibration and keep him on the Humalog 75/25 given at 20 units before breakfast and 14 units before dinner as ordered. We will continue the same low dose correction scale using Humalog insulin as given. We will titrate incrementally as indicated to optimize metabolic control. We will follow with you. Andria Cortez MD
[2017-10-05 13:06] LABS: URINE BILIRUBIN NEGATIVE (NEGATIVE); URINE BLOOD TRACE-INTACT (NEGATIVE); URINE GLUCOSE (UA) 250 mg/dL (NEGATIVE); URINE LEUKOCYTE ESTERASE NEGATIVE Leu/uL (NEGATIVE); URINE NITRATE NEGATIVE (NEGATIVE); URINE PROTEIN NEGATIVE mg/dL (<30 mg/dL); URINE UROBILINOGEN 0.2 E.U./dL (<1 E.U./dL)
[2017-10-05 13:08] LABS: URINE APPEARANCE CLEAR (CLEAR); URINE COLOR YELLOW (YELLOW)
[2017-10-05 13:16] LABS: URINE EPITHELIAL CELLS 0 - 2 /hpf (0-5); URINE RBC 0 - 2 /hpf (0-2); URINE WBC NEGATIVE /hpf (0-6)
--- NOTE | 2017-10-05 16:22 | CP.PCM.PN ---
Subjective - Date & Time of Evaluation Date of Evaluation: 10/05/17 Time of Evaluation: 10:50 - Subjective Subjective: Comfortable in bed, no fevers, not in distress. Objective - Vital Signs/Intake and Output Vital Signs (last 24 hours): Temp Pulse Resp BP Pulse Ox 98.4 F 98 H 20 146/88 100 10/05/17 07:30 10/05/17 08:22 10/05/17 07:30 10/05/17 08:23 10/05/17 07:30 Intake and Output: 10/05/17 10/05/17 06:59 18:59 Intake Total 240 Balance 240 - Medications Medications: Current Medications Acetaminophen (Tylenol 650 Mg Supp) 650 mg RC Q4H PRN PRN Reason: Fever >100.4 F Last Admin: 10/03/17 00:14 Dose: 650 mg Amlodipine Besylate (Norvasc) 10 mg PO DAILY [facility] Last Admin: 10/05/17 08:23 Dose: 10 mg Apixaban (Eliquis) 5 mg PO BID [facility] Last Admin: 10/05/17 09:55 Dose: Not Given Aspirin (Ecotrin) 81 mg PO DAILY [facility] Last Admin: 10/05/17 09:56 Dose: Not Given Carvedilol (Coreg) 3.125 mg PO BID [facility] Last Admin: 10/05/17 08:22 Dose: 3.125 mg Collagenase (Santyl) 0 gm TOP DAILY [facility] Last Admin: 10/05/17 09:59 Dose: 1 unit Docusate Sodium (Colace) 100 mg PO BID [facility] Last Admin: 10/05/17 09:54 Dose: Not Given Sodium Chloride (Sodium Chloride 0.9%) 1,000 mls @ 100 mls/hr IV .Q10H [facility] Last Admin: 10/04/17 08:56 Dose: 100 mls/hr Meropenem (Merrem Iv 1 Gm Premix) 50 mls @ 100 mls/hr IVPB Q12 [facility] Stop: 10/06/17 22:01 Last Admin: 10/05/17 09:56 Dose: Not Given Linezolid (Zyvox 600mg/300ml D5w) 600 mg in 300 mls @ 200 mls/hr IVPB Q12 [facility] PRN Reason: Protocol Stop: 10/09/17 22:01 Last Admin: 10/05/17 09:58 Dose: 200 mls/hr Insulin Human Lispro (Humalog Low) 0 units SC ACHS [facility] PRN Reason: Protocol Last Admin: 10/05/17 08:10 Dose: Not Given Insulin Lispro Protam/Lispro Human (Humalog Mix 75/25) 14 units SC ACD [facility] Last Admin: 10/04/17 17:38 Dose: Not Given Insulin Lispro Protam/Lispro Human (Humalog Mix 75/25) 20 units SC ACB [facility] Last Admin: 10/05/17 08:00 Dose: Not Given Magnesium Oxide (Mag-Ox) 400 mg PO DAILY [facility] Last Admin: 10/05/17 09:56 Dose: Not Given Pantoprazole Sodium (Protonix Ec Tab) 40 mg PO DAILY [facility] Last Admin: 10/05/17 09:59 Dose: Not Given Polyethylene Glycol (Miralax) 17 gm PO DAILY [facility] Last Admin: 10/05/17 09:56 Dose: Not Given Rivastigmine (Exelon 9.5 Mg/24 Hr Patch) 1 patch TD DAILY [facility] Last Admin: 10/05/17 09:55 Dose: Not Given Silver Sulfadiazine (Silvadene 1% 25 Gm) 1 gm TP DAILY [facility] Last Admin: 10/05/17 09:57 Dose: 1 gm - Labs Labs: 10/04/17 09:00 10/04/17 09:00 PT 13.2 SECONDS (9.4-12.5) H 09/25/17 14:30 INR 1.21 (0.93-1.08) H 09/25/17 14:30 APTT 27.4 Seconds (25.1-36.5) 09/27/17 12:35 - Constitutional Appears: Non-toxic, Chronically Ill - Head Exam Head Exam: NORMAL INSPECTION - Neck Exam Neck Exam: absent: Meningismus - Respiratory Exam Respiratory Exam: Decreased Breath Sounds - Cardiovascular Exam Cardiovascular Exam: +S1, +S2 - GI/Abdominal Exam GI & Abdominal Exam: Soft. absent: Tenderness - Extremities Exam Additional comments: right arm with dry dressings in place Assessment and Plan - Assessment and Plan (Free Text) Plan: Assessment Right upper arm skin and soft tissue infection with wound necrosis with E. coli and E. faecalis S/P debridement; new onset fever R/O new onset sepsis R/O pneumonia multiple liver masses DVT DM Alzheimer's dementia CAD S/P CABG Plan on Merrem day 10 and Zyvox day 4; repeat blood negative so far, rapid Influenza test is negative; CT chest does not show pneumonia right arm and right chest wounds look clean for biopsy of liver masses will continue to follow clinically overall prognosis is poor
[2017-10-05] MEDS ORDERED: Sodium Chloride 0.45% 1,000 ML IV SCH (17:30)
--- NOTE | 2017-10-05 19:07 | CT ---
PROCEDURE: CT guided liver biopsy. HISTORY: Multiple liver lesions suspicious for metastatic disease. Needs biopsy PHYSICIAN(S): Mason Acosta MD. TECHNIQUE: The relative risks and indications of the procedure were explained to the patient's and consent obtained. The patient was placed prone on the CT scanner and preliminary images through the upper abdomen obtained. Conscious sedation and monitoring were provided throughout the procedure by a nurse. There are multiple low-attenuation lesions in the liver. A 5.5 cm lesion in the posterior right lobe was selected for biopsy.. A right posterior approach was selected and the area prepped and draped in the usual sterile fashion. 1% Xylocaine was used to anesthetize the skin and soft tissues. A 17-gauge guiding needle was advanced into the 5.5 cm mass. Its position was confirmed with CT. Using coaxial technique, multiple core biopsies were obtained. The postprocedure images show no evidence of significant hemorrhage. IMPRESSION: 1. CT-guided liver biopsy as described above.
--- NOTE | 2017-10-05 20:17 | PN ---
DATE: SUBJECTIVE: A 71-year-old white male with dementia, change in mental status, confusion, pyoderma gangrenosum of the skin, DVT of the left iliofemoral vein. Recently found on CT of the chest to have some nodules in the lung and also some lesions in the liver. a dedicated CT of the liver showed multiple hypodense lesions of the liver consistent with metastases. The patient does have some mildly elevated liver enzymes. Case was discussed with Dr. Mason Acosta. The patient is being sent for a liver biopsy today. He is on Eliquis, which should be held for a day. Liver biopsy is being done by Dr. Mason Acosta today. As stated CT of the abdomen and pelvis did show no aortic aneurysm, kidneys were unremarkable. Bowel showed fecal impaction. There is trace intraabdominal and pelvic ascites, no free air, no enlarged lymph nodes. There is diffuse anasarca, multiple hepatic masses in both lobes of liver. Largest primarily obscured measuring approximately 3.5 cm, stable bilateral pleural effusions, ascites. The patient's case discussed with and singed consent for the biopsy. The patient will follow after the biopsy. Jama Dorman MD
[2017-10-06] MEDS: Linezolid 600 mg in D5W 300 ml 600 MG/300 ML BAG IVPB SCH ×2 (00:39→10:25)
[2017-10-06 07:26] LABS: MEAN CELL VOLUME 90.6 fl (80.0-105.0); MEAN CORPUSCULAR HEMOGLOBIN 30.3 pg (25.0-35.0); MEAN CORPUSCULAR HGB CONC 33.5 g/dl (31.0-37.0); MEAN PLATELET VOLUME 10.3 fl (7.0-11.0); RBC 2.97 10^6/uL (3.5-6.1); RED CELL DISTRIBUTION WIDTH 12.7 % (11.5-14.5); WHITE BLOOD COUNT 4.8 10^3/ul (4.5-11.0)
[2017-10-06 07:50] LABS: BETA-HYDROXYBUTYRIC ACID 23 mcg/mL
[2017-10-06 08:10] VITALS: BP 141/78; PULSE 81; RESP 18; TEMP 98; O2SAT 97
[2017-10-06] MEDS: Insulin Lispro (humaLOG) LOW Coverage SC SCH ×2 (08:38→12:04)
[2017-10-06] MEDS: Insulin Lispro (humaLOG) MIX 75/25(10 ml) SC SCH (08:39)
--- NOTE | 2017-10-06 09:43 | RAD ---
HISTORY: rt liver bx. r/o PTX COMPARISON: 09/29/2017 FINDINGS: LUNGS: No active pulmonary disease. PLEURA: Moderate size right pleural effusion. No pneumothorax CARDIOVASCULAR: Normal. OSSEOUS STRUCTURES: No significant abnormalities. VISUALIZED UPPER ABDOMEN: Normal. OTHER FINDINGS: None. IMPRESSION: Right-sided effusion. No evidence of pneumothorax
[2017-10-06] MEDS: Meropenem IV 1 gm in NS 50 ML IVPB SCH (10:13)
[2017-10-06] MEDS: Pantoprazole 40 mg EC Tab PO SCH (10:23)
[2017-10-06] MEDS: Magnesium Oxide 400 mg Tab UD PO SCH (10:23)
[2017-10-06] MEDS: POLYETHYLENE GLYCOL 3350 17 GM/Dose PACKET PO SCH (10:23)
[2017-10-06] MEDS: Collagenase 250 Units/gm Ointment(30 gm) TOP SCH (10:26)
[2017-10-06] MEDS: Silver Sulfadiazine 1% Cream (25 gm) TP SCH (10:27)
--- NOTE | 2017-10-06 13:03 | PN ---
DATE: SUBJECTIVE: A 71-year-old male admitted to the hospital with pyoderma gangrenosum bullous type ulcerations, found to have multiple liver hypodense lesions consistent with either primary or metastatic liver disease. The patient is status post biopsy of the liver. He also is being treated with Eliquis for a left iliofemoral DVT. OBJECTIVE: Vital signs are stable. ASSESSMENT AND PLAN: The patient has had dementia, but he is well. The plan is either TCU or home with hospice. Awaiting biopsy results. Jama Dorman MD
--- NOTE | 2017-10-06 16:10 | PN ---
DATE: ENDOCRINOLOGY FOLLOWUP NOTE LOCATION: Room 564. SUBJECTIVE: This is a 71-year-old with recent uncontrolled type II insulin requiring diabetes, presenting here with lower extremity deep vein thrombosis, and is now being followed closely for metabolic management. His glycemic levels are fluctuating and improved; latest glucose levels have ranged from 216 to 232 and 252 mg/dL. LABORATORY DATA: Latest chemistry show BUN of 20, sodium 134, potassium 4.3, chloride 105, CO2 22, glucose is 205, and creatinine is 1.7. ASSESSMENT AND PLAN: So at this time, we will repeat chemistry in the morning and observe the indices as noted. We will also modify his premixed insulin regimen and increase Humalog 75/25 to 26 units before breakfast and 20 units before dinner to start today as ordered. We will obtain serial chemistries and supplement accordingly as needed. We will continue the low dose correction scale using Humalog insulin as given. We will follow and advice accordingly. Andria Cortez MD
[2017-10-06] MEDS ORDERED: Insulin Lispro (humaLOG) MIX 75/25(10 ml) SC SCH (16:30)
--- NOTE | 2017-10-06 17:03 | CP.PCM.PN ---
Subjective - Date & Time of Evaluation Date of Evaluation: 10/06/17 Time of Evaluation: 11:40 - Subjective Subjective: Comfortable in bed, no fevers, not in distress. Objective - Vital Signs/Intake and Output Vital Signs (last 24 hours): Temp Pulse Resp BP Pulse Ox 98 F 81 18 141/78 97 10/06/17 08:09 10/06/17 08:09 10/06/17 08:09 10/06/17 08:09 10/06/17 08:09 Intake and Output: 10/06/17 10/06/17 06:59 18:59 Intake Total 240 Balance 240 - Medications Medications: Current Medications Acetaminophen (Tylenol 650 Mg Supp) 650 mg RC Q4H PRN PRN Reason: Fever >100.4 F Last Admin: 10/03/17 00:14 Dose: 650 mg Acetaminophen (Tylenol 325mg Tab) 650 mg PO Q4 PRN PRN Reason: Pain, Mild (1-3) Amlodipine Besylate (Norvasc) 10 mg PO DAILY [facility] Last Admin: 10/05/17 08:23 Dose: 10 mg Apixaban (Eliquis) 5 mg PO BID [facility] Last Admin: 10/05/17 18:50 Dose: Not Given Aspirin (Ecotrin) 81 mg PO DAILY [facility] Last Admin: 10/05/17 09:56 Dose: Not Given Carvedilol (Coreg) 3.125 mg PO BID [facility] Last Admin: 10/05/17 18:50 Dose: 3.125 mg Collagenase (Santyl) 0 gm TOP DAILY [facility] Last Admin: 10/05/17 09:59 Dose: 1 unit Docusate Sodium (Colace) 100 mg PO BID [facility] Last Admin: 10/05/17 18:49 Dose: Not Given Sodium Chloride (Sodium Chloride 0.9%) 1,000 mls @ 100 mls/hr IV .Q10H [facility] Last Admin: 10/04/17 08:56 Dose: 100 mls/hr Meropenem (Merrem Iv 1 Gm Premix) 50 mls @ 100 mls/hr IVPB Q12 [facility] Stop: 10/06/17 22:01 Last Admin: 10/05/17 22:14 Dose: 100 mls/hr Linezolid (Zyvox 600mg/300ml D5w) 600 mg in 300 mls @ 200 mls/hr IVPB Q12 [facility] PRN Reason: Protocol Stop: 10/09/17 22:01 Last Admin: 10/06/17 00:39 Dose: 200 mls/hr Insulin Human Lispro (Humalog Low) 0 units SC ACHS [facility] PRN Reason: Protocol Last Admin: 10/06/17 08:38 Dose: Not Given Insulin Lispro Protam/Lispro Human (Humalog Mix 75/25) 14 units SC ACD [facility] Last Admin: 10/05/17 17:11 Dose: Not Given Insulin Lispro Protam/Lispro Human (Humalog Mix 75/25) 20 units SC ACB [facility] Last Admin: 10/06/17 08:39 Dose: 20 u Magnesium Oxide (Mag-Ox) 400 mg PO DAILY [facility] Last Admin: 10/05/17 09:56 Dose: Not Given Pantoprazole Sodium (Protonix Ec Tab) 40 mg PO DAILY [facility] Last Admin: 10/05/17 09:59 Dose: Not Given Polyethylene Glycol (Miralax) 17 gm PO DAILY [facility] Last Admin: 10/05/17 09:56 Dose: Not Given Rivastigmine (Exelon 9.5 Mg/24 Hr Patch) 1 patch TD DAILY [facility] Last Admin: 10/05/17 09:55 Dose: Not Given Silver Sulfadiazine (Silvadene 1% 25 Gm) 1 gm TP DAILY [facility] Last Admin: 10/05/17 09:57 Dose: 1 gm - Labs Labs: 10/06/17 06:45 10/04/17 09:00 PT 13.2 SECONDS (9.4-12.5) H 09/25/17 14:30 INR 1.21 (0.93-1.08) H 09/25/17 14:30 APTT 27.4 Seconds (25.1-36.5) 09/27/17 12:35 - Constitutional Appears: Chronically Ill - Head Exam Head Exam: NORMAL INSPECTION - ENT Exam ENT Exam: Mucous Membranes Moist - Neck Exam Neck Exam: absent: Meningismus - Respiratory Exam Respiratory Exam: Decreased Breath Sounds - Cardiovascular Exam Cardiovascular Exam: +S1, +S2 - GI/Abdominal Exam GI & Abdominal Exam: Soft. absent: Tenderness Assessment and Plan - Assessment and Plan (Free Text) Plan: Assessment Right upper arm skin and soft tissue infection with wound necrosis with E. coli and E. faecalis S/P debridement; new onset fever R/O new onset sepsis R/O pneumonia multiple liver masses S/P liver biopsy DVT DM Alzheimer's dementia CAD S/P CABG Plan on Merrem day 11 and Zyvox day 5; repeat blood negative so far, rapid Influenza test is negative; CT chest does not show pneumonia; complete up to 14 days of merrem and up to 10 days of Zyvox right arm and right chest wounds look clean ffollow up biopsy results of the liver masses will continue to follow clinically overall prognosis is poor
[2017-10-07] MEDS ORDERED: Insulin Lispro (humaLOG) MIX 75/25(10 ml) SC SCH (07:30)
== END 2017-10-06 17:20 | DRG 264 ==
LOC: ED 13:33 → ERH 18:12 → 5RNO 22:25
PROVIDERS: ADMIT Internal Medicine; ATTEND Internal Medicine
PROC: 0JBD0ZZ Excision of Right Upper Arm Subcutaneous Tissue and Fascia, Open Approach (ICD-10-PCS; principal; 2017-09-26)
PROC: 0FB13ZX Excision of Right Lobe Liver, Percutaneous Approach, Diagnostic (ICD-10-PCS; 2017-10-05)
DX: I82.422 Acute embolism and thrombosis of left iliac vein (principal); N17.9 Acute kidney failure, unspecified; L89.153 Pressure ulcer of sacral region, stage 3; J90 Pleural effusion, not elsewhere classified; D68.59 Other primary thrombophilia; C78.7 Secondary malignant neoplasm of liver and intrahepatic bile duct; E11.21 Type 2 diabetes mellitus with diabetic nephropathy; L89.893 Pressure ulcer of other site, stage 3; R18.8 Other ascites; L89.623 Pressure ulcer of left heel, stage 3; L88 Pyoderma gangrenosum; D69.6 Thrombocytopenia, unspecified; E11.22 Type 2 diabetes mellitus with diabetic chronic kidney disease; N18.3 Chronic kidney disease, stage 3 (moderate); E11.319 Type 2 diabetes mellitus with unspecified diabetic retinopathy without macular edema; E11.65 Type 2 diabetes mellitus with hyperglycemia; E86.0 Dehydration; I25.10 Atherosclerotic heart disease of native coronary artery without angina pectoris; E11.51 Type 2 diabetes mellitus with diabetic peripheral angiopathy without gangrene; D64.9 Anemia, unspecified; G30.1 Alzheimer's disease with late onset; F02.80 Dementia in other diseases classified elsewhere, unspecified severity, without behavioral disturbance, psychotic disturbance, mood disturbance, and anxiety; K56.41 Fecal impaction; E78.5 Hyperlipidemia, unspecified; I13.10 Hypertensive heart and chronic kidney disease without heart failure, with stage 1 through stage 4 chronic kidney disease, or unspecified chronic kidney disease; Z79.4 Long term (current) use of insulin; Z74.01 Bed confinement status; Z95.1 Presence of aortocoronary bypass graft; Z87.891 Personal history of nicotine dependence

== ENCOUNTER 2017-10-06 17:04 | Inpatient (IN) | payer OTHER ==
[2017-10-06 18:04] VITALS: BMI 20.7
[2017-10-06] MEDS ORDERED: Sodium Chloride 0.9% 1,000 ML IV SCH (18:30)
[2017-10-06] MEDS: Sodium Chloride 0.9% 1,000 ML IV SCH (18:37)
[2017-10-06] MEDS ORDERED: Insulin Lispro (humaLOG) LOW Coverage SC SCH (22:00)
[2017-10-06] MEDS: Insulin Lispro (humaLOG) LOW Coverage SC SCH (22:43)
[2017-10-07] MEDS: Sodium Chloride 0.9% 1,000 ML IV SCH ×2 (04:30→17:25)
[2017-10-07] MEDS: Pantoprazole 40 mg EC Tab PO SCH (05:13)
[2017-10-07] MEDS: Linezolid 600 mg in D5W 300 ml 600 MG/300 ML BAG IVPB SCH ×2 (05:35→17:25)
[2017-10-07] MEDS: Insulin Lispro (humaLOG) LOW Coverage SC SCH ×3 (06:39→22:13)
[2017-10-07 07:26] LABS: BASO # 0.01 K/mm3 (0.0-2.0); BASO % 0.2 % (0.0-3.0); EOS # 0.2 (0.0-0.7); EOS % 3.3 % (1.5-5.0); GRAN # 2.81 (1.4-6.5); GRAN % 57.7 % (50.0-68.0); HEMOGLOBIN 8.9 g/dL (14.0-18.0); LYMPH # 1.5 (1.2-3.4); LYMPH % 31.6 % (22.0-35.0); MEAN CELL VOLUME 90.6 fl (80.0-105.0); MEAN CORPUSCULAR HEMOGLOBIN 30.9 pg (25.0-35.0); MEAN CORPUSCULAR HGB CONC 34.1 g/dl (31.0-37.0); MEAN PLATELET VOLUME 9.8 fl (7.0-11.0); MONO # 0.4 (0.1-0.6); MONO % 7.2 % (1.0-6.0); RBC 2.88 10^6/uL (3.5-6.1); RED CELL DISTRIBUTION WIDTH 12.8 % (11.5-14.5); WHITE BLOOD COUNT 4.9 10^3/ul (4.5-11.0)
[2017-10-07] MEDS ORDERED: Insulin Lispro (humaLOG) MIX 75/25(10 ml) SC SCH ×2 (07:30→16:30)
[2017-10-07 07:50] LABS: ALB/GLOB RATIO 0.9 (1.1-1.8); ALBUMIN 2.3 g/dL (3.0-4.8); CALCIUM 8.1 mg/dL (8.4-10.5)
[2017-10-07] MEDS: Collagenase 250 Units/gm Ointment(30 gm) TOP SCH (10:06)
[2017-10-07] MEDS: Magnesium Oxide 400 mg Tab UD PO SCH (10:06)
[2017-10-07] MEDS: POLYETHYLENE GLYCOL 3350 17 GM/Dose PACKET PO SCH (10:06)
[2017-10-07] MEDS: Silver Sulfadiazine 1% Cream (25 gm) TP SCH (10:07)
[2017-10-07] MEDS ORDERED: Dextrose 50% SYRINGE Inj (50 ml) ONE (11:32)
[2017-10-07 12:07] LABS: ARTERIAL BLOOD GAS HCO3 26.5 mmol/L (21-28); ARTERIAL BLOOD GAS O2 SAT 99.9 % (95-98); ARTERIAL BLOOD GAS PCO2 39 mm/Hg (35-45); ARTERIAL BLOOD GAS PH 7.44 (7.35-7.45); ARTERIAL BLOOD GAS TCO2 27.7 mmol.L (22-28)
--- NOTE | 2017-10-07 13:09 | PCM.RRT ---
<Tk Vallejo - Last Filed: 10/07/17 13:24> ASSEMBLER [employer]NCO[employer]ES Nurse Assessment - Situation Date: 10/07/17 Time ASSEMBLER [employer] was called: 11:30 ASSEMBLER [employer] Responder Arrival Time: 11:33 ASSEMBLER [employer] Location:: Transitional Care Unit Room Number: 318 ASSEMBLER [employer] Reason for Call: Change in Mental Status ASSEMBLER [employer] Called By: RN - IV IV Inserted during ASSEMBLER CORNCO[employer] PIPES?: No - Respiratory Oxygen Delivery Method: Room Air - Medication Medications Administered During ASSEMBLER CORNCOB PIPES: D5 IVP 2 ampules - Diagnostic Test Ordered EKG: No Chest X-Ray: No CT Scan: No CPR started during ASSEMBLER CORNCO[employer]ES?: No - Vital Signs Vital Sign: Rapid Response Vital Sign Blood Pressure 133/63 Pulse Rate 67 Respiratory Rate 14 Temperature 98.4 F Oxygen Saturation 98 - Finger Stick Blood Glucose Finger Stick Blood Glucose: 30 - Jamil Coma Scale Coma Scale Eye Opening: No response Coma Scale Motor: None Coma Scale Verbal: No response - Recommendations Notifications: Attending Physician, Family or Designated Caregiver I.Reason for ASSEMBLER [employer]ES - A) Acute Change in Patient: (Select all that apply): Staff member or family is worried about patient ( obtunded, diaphoretic, blood glucose found to be < 30) Subjective: House Physician Resident Tk Vallejo, PGY-2 IM Rapid response called at 1129, responded immediately. As per nursing, patient found obtunded, diaphoretic, unresponsive. Of note, baseline is aphasic/non- verbal, but awake, alert and following commands as per nursing. Fingerstick glucose at bedside read as < 30. 1 amp D50 administered right away, and after no change in mental status after 5 minutes, second D50 amp administered. Patient remained obtunded, so stat ABG shock panel and CT head obtained. Tachycardia resolved after both amps of D50, heart rate on portable monitor consistently 59-60's. During transport to and from [place], became more awake, spontaneously opening eyes and opening them when calling his name. Returned to TCU floor without incident. Fingersticks q1 hour x4, all scheduled insulin held , holding sliding scale dose for blood glucose < 175. PMD (Dr. Dorman) notified and aware. Of note, in reviewing the chart, patient had blood glucose of 126 this AM, so was not given sliding scale coverage, but was still given his scheduled Humalin 75/25% insulin, 26 units, at 0629. Nursing reports patient did not eat breakfast today. Lack of PO intake and AM insulin are the likely cause of the hypoglycemic episode. - Neurological Status Other (Please specify): non-verbal (baseline), obtunded but becoming more awake/ alert by end of RR - Respiratory Oxygen Delivery Method: Room Air, Nasal Cannula @L/min (2L) - Constitutional Appears: In Acute Distress (obtunded and diaphoretic), Chronically Ill - Head Head Exam: ATRAUMATIC, NORMAL INSPECTION, NORMOCEPHALIC - Eyes Eye Exam: EOMI (not following commands for EOMI assessment, but rolls eyes away from direct light challenge for pupil assessment), Normal appearance, PERRL. absent: Conjunctival injection, Scleral icterus - Respiratory Exam Respiratory Exam: Clear to Ausculation Bilateral, NORMAL BREATHING PATTERN. absent: Accessory Muscle Use, Chest Wall Tenderness, Decreased Breath Sounds, Rales, Rhonchi, Wheezes - Cardiovascular Exam Cardiovascular Exam: Tachycardia (initially tachycardic, resolved after D50 x 2 given), REGULAR RHYTHM, RRR, +S1, +S2. absent: Bradycardia, Irregular Rhythm, + S4 - GI/Abdominal Exam GI & Abdominal Exam: Soft. absent: Tenderness - Neurological Exam Additional exam: initially obtunded and unresponsive to verbal stimuli, withdrew from noxious physical stimuli after x2 D50 administered, some spontaneous eye opening, head movements, and bilateral arm movements noted grimacing with transfer to/from bed to CT scanner table - Extremities Exam Extremities Exam: Normal Inspection. absent: Pedal Edema Plan - Assessment of Findings&Treatment Plan Stat D50 amp x2 given, repeat fingerstick > 300 holding all schedule insulin, hold parameter for sliding scale insulin if blood glucose < 175 communicated to nursing Heat CT obtained, pending read Stat ABG shock panel obtained, pending read PMD notified and aware, patient to be transferred back to TCU after scans Fingerstick blood glucose q1h x4 Patient review and discussed with responding hospitalist attendings, Dr. Steward and Dr. Alicia. <Nasrin Alicia - Last Filed: 10/07/17 14:43> ASSEMBLER [employer] Nurse Assessment - Vital Signs Vital Sign: Rapid Response Vital Sign Blood Pressure 133/63 Pulse Rate 67 Respiratory Rate 14 Temperature 98.4 F Oxygen Saturation 98 Attending/Attestation - Attestation I have personally seen and examined this patient.: Yes I have fully participated in the care of the patient.: Yes I have reviewed all pertinent clinical information, including history, physical exam and plan: Yes Notes (Text): 10/07/17 14:40 Patient was seen and examined with director of medical services. Agreed with resident assessment and plan. 71 yrs old male was seen in rapid response as he was found to unresponsive, he was found to hypoglycemic.Mental status has not come to base line after hypoglycemia is resolved.We will get ABG and CT scan of head. Patient PMD was informed. Condition was discussed with family.
--- NOTE | 2017-10-07 14:49 | CP.PCM.CON ---
History of Present Illness - History of Present Illness History of Present Illness: 71 year old male with PMH of alzheimer's dementia, CAD S/P CABG, HTN, DM was initially admitted in [facility] for ulcers on the right arm as well as right chest area which were debdrided by Surgery. He continues to be on antibiotics for these. He was also discovered to have multiple liver lesions and he underwent biopsy on initial admission. He is now transferred to [facility] for continued medical therapy and physical therapy. Infectious Diseases consult is requested to continue his antibiotic therapy. An FACILITY EXAMINER was called for this patient after he was found to be very lethargic. He was found to be severely hypoglycemic with glucose of 30 and his mental status improved after D50 infusion. There is no note of vomiting, no convulsions, no diarrhea. Review of Systems - Review of Systems All systems: reviewed and no additional remarkable complaints except (as per HPI ) Past Patient History - Infectious Disease Hx of Infectious Diseases: None - Past Social History Smoking Status: Never Smoked - CARDIAC Hx Cardiac Disorders: Yes Hx Hypertension: Yes - PULMONARY Hx Respiratory Disorders: Yes Hx Bronchitis: Yes - NEUROLOGICAL Hx Neurological Disorder: Yes Hx Alzheimer's Disease: Yes - HEENT Hx HEENT Problems: No - RENAL Hx Chronic Kidney Disease: No - ENDOCRINE/METABOLIC Hx Diabetes Mellitus Type 2: Yes - HEMATOLOGICAL/ONCOLOGICAL Hx Blood Disorders: No - INTEGUMENTARY Hx Dermatological Problems: Yes Other/Comment: MULTIPLE OPENED BLISTER-RIGHT PINNA,RIGHT INNER LATERAL ARM, RIGHT UNDER THE BREAST,RIGHT LATERAL SIDE OF BIG TOE, LEFT HEEL PRESSURE ULCER WITH NECROTIC TISSUE,. BILATERAL LOWER BUTTOCKS WITH IASD,SLOUGHED SKIN. - MUSCULOSKELETAL/RHEUMATOLOGICAL Hx Falls: Yes - GASTROINTESTINAL Hx Gastrointestinal Disorders: No - GENITOURINARY/GYNECOLOGICAL Hx Reproductive Disorders: No - PSYCHIATRIC Hx Psychophysiologic Disorder: Yes Hx Depression: Yes Hx Substance Use: No - SURGICAL HISTORY Hx Surgeries: Yes - ANESTHESIA Hx Anesthesia Reactions: No Hx Malignant Hyperthermia: No Meds Allergies/Adverse Reactions: Allergies Allergy/AdvReac Type Severity Reaction Status Date / Time Penicillins Allergy ANAPHYLAXIS Verified 10/06/17 20:44 - Medications Medications: Current Medications Acetaminophen (Tylenol 325mg Tab) 650 mg PO Q4H PRN; Protocol PRN Reason: Fever >100.4 F Acetaminophen (Tylenol 650 Mg Supp) 650 mg RC Q4H PRN; Protocol PRN Reason: Pain, Mild (1-3) Amlodipine Besylate (Norvasc) 10 mg PO DAILY PARKER PRN Reason: Protocol Apixaban (Eliquis) 5 mg PO BID PARKER PRN Reason: Protocol Last Admin: 10/06/17 18:37 Dose: 5 mg Aspirin (Ecotrin) 81 mg PO 0800 PARKER PRN Reason: Protocol Carvedilol (Coreg) 3.125 mg PO 0800,1800 PARKER PRN Reason: Protocol Collagenase (Santyl) 1 gm TOP DAILY PARKER PRN Reason: Protocol Docusate Sodium (Colace) 100 mg PO BID PARKER PRN Reason: Protocol Sodium Chloride (Sodium Chloride 0.9%) 1,000 mls @ 100 mls/hr IV .Q10H PARKER PRN Reason: Protocol Last Admin: 10/07/17 04:30 Dose: 100 mls/hr Linezolid (Zyvox 600mg/300ml D5w) 600 mg in 300 mls @ 200 mls/hr IVPB 0600, 1800 PARKER PRN Reason: Protocol Stop: 10/12/17 06:01 Last Admin: 10/07/17 05:35 Dose: 200 mls/hr Meropenem (Merrem Iv 1 Gm Premix) 50 mls @ 100 mls/hr IVPB Q12 PARKER PRN Reason: Protocol Stop: 10/10/17 10:01 Insulin Human Lispro (Humalog Low) 0 units SC ACHS PARKER PRN Reason: Protocol Last Admin: 10/06/17 22:43 Dose: Not Given Insulin Lispro Protam/Lispro Human (Humalog Mix 75/25) 20 units SC ACD PARKER PRN Reason: Protocol Insulin Lispro Protam/Lispro Human (Humalog Mix 75/25) 26 units SC ACB PARKER PRN Reason: Protocol Magnesium Oxide (Mag-Ox) 400 mg PO DAILY PARKER PRN Reason: Protocol Pantoprazole Sodium (Protonix Ec Tab) 40 mg PO 0600 PARKER PRN Reason: Protocol Last Admin: 10/07/17 05:13 Dose: 40 mg Polyethylene Glycol (Miralax) 17 gm PO DAILY PARKER PRN Reason: Protocol Rivastigmine (Exelon 9.5 Mg/24 Hr Patch) 1 patch TD DAILY PARKER PRN Reason: Protocol Silver Sulfadiazine (Silvadene 1% 25 Gm) 1 gm TP DAILY PARKER PRN Reason: Protocol Physical Exam - Constitutional Appears: Other (more awake now but was initially lethargic) - ENT Exam ENT Exam: Mucous Membranes Moist - Neck Exam Neck exam: Negative for: Meningismus - Respiratory Exam Respiratory Exam: Decreased Breath Sounds - Cardiovascular Exam Cardiovascular Exam: +S1, +S2 - GI/Abdominal Exam GI & Abdominal Exam: Soft. absent: Tenderness Results - Vital Signs Recent Vital Signs: Last Vital Signs Temp 97.7 F 10/06/17 19:14 Pulse 83 10/06/17 19:14 Resp 18 10/06/17 19:14 BP 133/45 L 10/06/17 19:14 Pulse Ox - Labs Result Diagrams: 10/07/17 07:00 10/07/17 07:00 Assessment & Plan - Assessment and Plan (Free Text) Plan: Assessment Right upper arm skin and soft tissue infection with wound necrosis with E. coli and E. faecalis S/P debridement acute encephalopathy probably from hypoglycemia, improved with glucose infusions multiple liver masses S/P liver biopsy DVT DM Alzheimer's dementia CAD S/P CABG Plan on Merrem day 12 and Zyvox day 6; repeat blood negative so far, rapid Influenza test is negative; CT chest does not show pneumonia; complete up to 14 days of merrem and up to 10 days of Zyvox right arm and right chest wounds look clean follow up biopsy results of the liver masses will continue to follow clinically overall prognosis is poor
[2017-10-07] MEDS: Meropenem IV 1 gm in NS 50 ML IVPB SCH (17:28)
--- NOTE | 2017-10-07 17:44 | CARD ---
APPROVED REPORT EKG Measurement Heart [id number] ID [id number] <Conclusion> Normal sinus rhythm Inferior infarct, age undetermined Abnormal ECG
--- NOTE | 2017-10-07 17:49 | PN ---
DATE: ENDOCRINOLOGY FOLLOWUP NOTE LOCATION: He was transferred and admitted to TCU in room 318. SUBJECTIVE: This is a 71-year-old male with present uncontrolled type 2 insulin-requiring diabetes, now being followed closely for metabolic management. He is undergoing treatment also for lower extremity deep vein thrombosis as noted thereof. LABORATORY DATA: His glucose levels are being near optimal and the latest chemistries showed a BUN of 19, sodium 134, potassium of 3.6, chloride 102, CO2 of 27, glucose 150, creatinine 1.6. PLAN: So, at this time, we will continue the same premixed insulin regimen and keep him on the Humalog 75/25, given as 26 units before breakfast and 20 units before dinner as ordered. We will obtain serial chemistries and supplement accordingly as needed. We will follow with you. Andria Cortez MD
--- NOTE | 2017-10-07 19:11 | PN ---
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 Patient recently was found to have multiple hypodense lesion of liver. He had underwent liver biopsy by Dr. Mason Acosta which revealed at this point adenocarcinoma of unknown etiology, consistent with hepatoma. Patient is minimally verbal, has a history of dementia, history of left iliofemoral DVTs, on Eliquis, also insulin-dependent diabetes mellitus, poorly controlled. PHYSICAL EXAMINATION VITAL SIGNS: Patient is afebrile. Vital signs are stable. CHEST: Clear to auscultation and percussion. HEART: Examination reveals sinus rhythm. ABDOMEN: Benign. EXTREMITIES: Without cyanosis, clubbing, or edema. 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 Jama Dorman MD
[2017-10-08] MEDS: Meropenem IV 1 gm in NS 50 ML IVPB SCH (05:32)
[2017-10-08] MEDS: Pantoprazole 40 mg EC Tab PO SCH (05:33)
[2017-10-08] MEDS: Linezolid 600 mg in D5W 300 ml 600 MG/300 ML BAG IVPB SCH ×2 (05:33→18:32)
[2017-10-08] MEDS: Insulin Lispro (humaLOG) LOW Coverage SC SCH ×4 (06:56→22:17)
[2017-10-08] MEDS: POLYETHYLENE GLYCOL 3350 17 GM/Dose PACKET PO SCH (09:03)
[2017-10-08] MEDS: Magnesium Oxide 400 mg Tab UD PO SCH (09:05)
[2017-10-08] MEDS: Silver Sulfadiazine 1% Cream (25 gm) TP SCH (09:06)
[2017-10-08] MEDS: Collagenase 250 Units/gm Ointment(30 gm) TOP SCH (09:06)
[2017-10-08] MEDS ORDERED: Insulin Lispro (humaLOG) MIX 75/25(10 ml) SC SCH (12:34)
[2017-10-08] MEDS: Sodium Chloride 0.9% 1,000 ML IV SCH ×2 (13:46→20:30)
--- NOTE | 2017-10-08 14:07 | CP.PCM.PN ---
Subjective - Date & Time of Evaluation Date of Evaluation: 10/08/17 Time of Evaluation: 11:55 - Subjective Subjective: Comfortable in bed, not in distress, more awake today. Afebrile overnight. Objective - Vital Signs/Intake and Output Vital Signs (last 24 hours): Temp Pulse Resp BP Pulse Ox 99 F 91 H 18 154/88 H 97 10/08/17 06:00 10/08/17 06:00 10/08/17 06:00 10/08/17 06:00 10/08/17 06:00 Intake and Output: 10/07/17 10/08/17 18:59 06:59 Intake Total 420 Balance 420 - Medications Medications: Current Medications Acetaminophen (Tylenol 325mg Tab) 650 mg PO Q4H PRN; Protocol PRN Reason: Fever >100.4 F Acetaminophen (Tylenol 650 Mg Supp) 650 mg RC Q4H PRN; Protocol PRN Reason: Pain, Mild (1-3) Amlodipine Besylate (Norvasc) 10 mg PO DAILY PARKER PRN Reason: Protocol Last Admin: 10/07/17 10:06 Dose: 10 mg Apixaban (Eliquis) 5 mg PO BID PARKER PRN Reason: Protocol Last Admin: 10/07/17 17:22 Dose: 5 mg Aspirin (Ecotrin) 81 mg PO 0800 PARKER PRN Reason: Protocol Last Admin: 10/07/17 10:04 Dose: 81 mg Carvedilol (Coreg) 3.125 mg PO 0800,1800 PARKER PRN Reason: Protocol Last Admin: 10/07/17 17:22 Dose: 3.125 mg Collagenase (Santyl) 1 gm TOP DAILY PARKER PRN Reason: Protocol Last Admin: 10/07/17 10:06 Dose: 1 appl Docusate Sodium (Colace) 100 mg PO BID PARKER PRN Reason: Protocol Last Admin: 10/07/17 17:22 Dose: 100 mg Sodium Chloride (Sodium Chloride 0.9%) 1,000 mls @ 100 mls/hr IV .Q10H PARKER PRN Reason: Protocol Last Admin: 10/07/17 17:25 Dose: 100 mls/hr Linezolid (Zyvox 600mg/300ml D5w) 600 mg in 300 mls @ 200 mls/hr IVPB 0600, 1800 PARKER PRN Reason: Protocol Stop: 10/12/17 06:01 Last Admin: 10/08/17 05:33 Dose: 200 mls/hr Meropenem (Merrem Iv 1 Gm Premix) 50 mls @ 100 mls/hr IVPB Q12H PARKER PRN Reason: Protocol Last Admin: 10/08/17 05:32 Dose: 100 mls/hr Insulin Human Lispro (Humalog Low) 0 units SC ACHS PARKER PRN Reason: Protocol Last Admin: 10/08/17 06:56 Dose: Not Given Insulin Lispro Protam/Lispro Human (Humalog Mix 75/25) 20 units SC ACD PARKER PRN Reason: Protocol Insulin Lispro Protam/Lispro Human (Humalog Mix 75/25) 26 units SC ACB PARKER PRN Reason: Protocol Last Admin: 10/07/17 06:45 Dose: 26 units Magnesium Oxide (Mag-Ox) 400 mg PO DAILY PARKER PRN Reason: Protocol Last Admin: 10/07/17 10:06 Dose: 400 mg Pantoprazole Sodium (Protonix Ec Tab) 40 mg PO 0600 PARKER PRN Reason: Protocol Last Admin: 10/08/17 05:33 Dose: 40 mg Polyethylene Glycol (Miralax) 17 gm PO DAILY PARKER PRN Reason: Protocol Last Admin: 10/07/17 10:06 Dose: 17 gm Rivastigmine (Exelon 9.5 Mg/24 Hr Patch) 1 patch TD DAILY PARKER PRN Reason: Protocol Last Admin: 10/07/17 10:05 Dose: 1 patch Silver Sulfadiazine (Silvadene 1% 25 Gm) 1 gm TP DAILY PARKER PRN Reason: Protocol Last Admin: 10/07/17 10:07 Dose: 1 gm - Labs Labs: 10/07/17 07:00 10/07/17 07:00 - Constitutional Appears: Non-toxic, Chronically Ill - Head Exam Head Exam: NORMAL INSPECTION - Neck Exam Neck Exam: absent: Meningismus - Respiratory Exam Respiratory Exam: Decreased Breath Sounds - Cardiovascular Exam Cardiovascular Exam: +S1, +S2 - GI/Abdominal Exam GI & Abdominal Exam: Soft. absent: Tenderness Assessment and Plan - Assessment and Plan (Free Text) Plan: Assessment Right upper arm skin and soft tissue infection with wound necrosis with E. coli and E. faecalis S/P debridement S/P acute encephalopathy probably from hypoglycemia, improved with glucose infusions multiple liver masses S/P liver biopsy DVT DM Alzheimer's dementia CAD S/P CABG Plan S/P 12 days of Merrem day 12 and on Zyvox day 7; repeat blood negative so far, rapid Influenza test is negative; CT chest does not show pneumonia; complete 7- 10 days of Zyvox right arm and right chest wounds look clean follow up biopsy results of the liver masses will continue to follow clinically overall prognosis is poor
--- NOTE | 2017-10-08 15:20 | PN ---
DATE: ENDO FOLLOWUP NOTE LOCATION: In the room [facility], [facility]. SUBJECTIVE: This is a 71-year-old male with recent uncontrolled type 2 insulin-requiring diabetes, now being followed closely for metabolic management. His glycemic levels are fluctuating, but improved and the latest glucose levels have ranged from 192-208 and 266 mg/dL. It was 146 at bedtime last night. The latest chemistry showed BUN of 23, sodium 136, potassium 4.3, chloride 107, CO2 22, glucose 164, and creatinine 1.8. So at this time, we will modify once again his premixed insulin regimen and increase the Humalog to 75/25 at 30 units a.c. breakfast and 24 units a.c. dinner to start today. We will continue the low-dose correction scale using Humalog insulin as given. We will obtain serial chemistries and supplement accordingly as needed. We will follow. Andria Cortez MD
--- NOTE | 2017-10-08 18:59 | PN ---
DATE: SUBJECTIVE: A 71-year-old male with dementia, liver lesions consistent with adenocarcinoma, metastatic to the liver probably elevated, chronic renal insufficiency, BUN and creatinine of 19 and 1.6, insulin-dependent diabetes mellitus, blood sugar of 155, and iliofemoral DVT, on Eliquis. The patient had a recent "change in mental status" who was found to be hypoglycemic and did have a CT of the brain at that point in time showing some lesions in the brain consistent with possible stroke versus metastatic disease. The patient is awaiting an MRI with gadolinium. Vital signs are stable. The patient is back to his baseline. He is today. Tolerating his diet well. Case was discussed with the . Plans for Oncology consultation with Dr. Szymanski. Jama Dorman MD
[2017-10-09] MEDS: Linezolid 600 mg in D5W 300 ml 600 MG/300 ML BAG IVPB SCH ×2 (05:17→18:07)
[2017-10-09] MEDS: Pantoprazole 40 mg EC Tab PO SCH (05:18)
[2017-10-09] MEDS: Sodium Chloride 0.9% 1,000 ML IV SCH (05:28)
[2017-10-09] MEDS: Insulin Lispro (humaLOG) LOW Coverage SC SCH ×4 (06:42→23:03)
[2017-10-09] MEDS ORDERED: Insulin Lispro (humaLOG) MIX 75/25(10 ml) SC SCH (07:30)
[2017-10-09] MEDS: Magnesium Oxide 400 mg Tab UD PO SCH (09:58)
[2017-10-09] MEDS: POLYETHYLENE GLYCOL 3350 17 GM/Dose PACKET PO SCH (09:58)
[2017-10-09] MEDS: Collagenase 250 Units/gm Ointment(30 gm) TOP SCH (11:03)
[2017-10-09] MEDS: Silver Sulfadiazine 1% Cream (25 gm) TP SCH (11:04)
--- NOTE | 2017-10-09 14:40 | PN ---
DATE: 10/09/2017 SUBJECTIVE: The patient is in bed, in no acute distress, nontoxic. PHYSICAL EXAMINATION: VITAL SIGNS: Temperature is 98, blood pressure is 120/60, and respiratory rate of 16. HEENT: Unremarkable. NECK: Supple. LUNGS: Have decreased breath sounds. HEART: Normal S1 and S2. ABDOMEN: Soft and nontender. LABORATORY EXAMINATION: Reveals a white count of 4.9, hemoglobin of 8, and platelets of 126. Chemistries reveal creatinine is 1.6. Dr. Dorman's note is reviewed. Review of orders reveals the patient to be on Zyvox IV. ASSESSMENT AND PLAN: This is a 71-year-old male with right upper skin soft tissue infection, wound necrosis, Escherichia coli and Enterococcus faecalis, status post debridement; status post acute encephalopathy, probably from hypoglycemia and multiple liver masses, status post liver biopsy with adenocarcinoma with deep vein thrombosis, diabetes. Had 12 days of meropenem, today is #8 of Zyvox and we will complete 7 to 10 days of Zyvox in the right arm. We will most likely discontinue the Zyvox within the next 24 hours. Review of the MRI is noted. Keith August MD
--- NOTE | 2017-10-09 14:41 | PN ---
DATE: SUBJECTIVE: A 71-year-old male admitted to the hospital with bullous type pyoderma gangrenosum, was found to have liver metastasis, biopsy proves adenocarcinoma, awaiting final confirmation, recent change in mental status with hyperglycemia. CT showed some abnormalities and followup MRI with gadolinium showed a vasogenic edema and a lesion consistent with metastatic disease of the brain. Case was discussed with the today as far as making the patient DNR and having an Oncology consultation. BUN and creatinine have improved to 19 and 1.6, blood sugar 155. Hemoglobin was 8.9. The patient is afebrile, blood pressure is 127/69. The patient is tolerating his diet well. The patient has profound dementia with aphasia. PLAN: To start some Decadron for the brain swelling and Oncology consultation, and further evaluation for possible treatment versus non-treatment on this metastatic malignancy. Jama Dorman MD
--- NOTE | 2017-10-09 17:35 | PN ---
DATE: ENDOCRINOLOGY FOLLOWUP NOTE In room 318. SUBJECTIVE: This is a 71-year-old male with recent uncontrolled type 2 insulin-requiring diabetes now being followed closely for metabolic management. He has also been at this time held n.p.o. for a possible liver and biopsy procedure and currently undergoing workup for possible hepatocellular carcinoma as noted thereof. His glycemic levels are fluctuating, but much improved at this time and the latest chemistry showed a BUN of 23, sodium 136, potassium 4.3, chloride 107, CO2 of 21, glucose 164 and creatinine 1.8. So at this time, we will continue the same low dose correction scale using Humalog insulin as ordered. His premixed insulin regimen has been held today as ordered. Once the GI workup is completed then we will start on the same premixed insulin dose regimen with Humalog 75/25 given as 30 units before breakfast and 24 units before dinner as ordered. In the meantime, we will continue the low-dose correction scale using Humalog insulin as given. We will titrate incrementally as indicated to optimize metabolic control. We will follow. Andria Cortez MD
[2017-10-10] MEDS: Pantoprazole 40 mg EC Tab PO SCH (05:07)
[2017-10-10] MEDS: Linezolid 600 mg in D5W 300 ml 600 MG/300 ML BAG IVPB SCH (05:07)
[2017-10-10] MEDS: Insulin Lispro (humaLOG) LOW Coverage SC SCH ×4 (06:56→22:08)
[2017-10-10] MEDS: POLYETHYLENE GLYCOL 3350 17 GM/Dose PACKET PO SCH (09:58)
[2017-10-10] MEDS: Magnesium Oxide 400 mg Tab UD PO SCH (09:59)
[2017-10-10] MEDS: Collagenase 250 Units/gm Ointment(30 gm) TOP SCH (10:06)
[2017-10-10] MEDS: Silver Sulfadiazine 1% Cream (25 gm) TP SCH (10:06)
[2017-10-10] MEDS: Lactulose 10 gm/15 ml (Rectal Use) PR PRN ×2 (10:08→17:27)
--- NOTE | 2017-10-10 10:31 | PN ---
DATE: 10/10/2017 SUBJECTIVE: The patient is in bed, in no acute distress. PHYSICAL EXAMINATION: VITAL SIGNS: Temperature is 98, blood pressure is 130/80, respiratory rate of 18. HEENT: Unremarkable. NECK: Supple. LUNGS: Have decreased breath sounds. HEART: Normal S1, S2. ABDOMEN: Soft, nontender. LABORATORY DATA: Reveals a white count of 4.9, hemoglobin of 8, platelets of 126. Chemistries reveals the patient's BUN is 19, creatinine of 1.6. Review of orders reveals the patient to be on linezolid. ASSESSMENT AND PLAN: A 71-year-old male with a right upper skin soft tissue infection, wound necrosis, Escherichia coli and Enterococcus faecalis, status post debridement, status post acute encephalopathy from hypoglycemia, multiple liver masses, status post liver biopsy, adenocarcinoma with a deep vein thrombosis and diabetes, had 12 days of meropenem, day #9 of Zyvox. We will discontinue Zyvox. No further antibiotics necessary and overall prognosis is quite poor for this patient. Keith August MD
--- NOTE | 2017-10-10 12:30 | PN ---
DATE: SUBJECTIVE: A 71-year-old male admitted to the hospital with bullous type pyoderma gangrenosum associated with adenocarcinoma of the liver metastatic with multiple liver mets . Case was discussed with the family. The patient has some dependent swelling and edema. He has ulcerated lesions in the upper and lower extremities. Family is at the beside. Tolerating his diet well. The patient is nonverbal today. He is awake and alert. PLAN: Plan is for hospice evaluation, possible hospice at home. Continue p.o. antibiotics and local wound, treatment of his pyoderma gangrenosum, and awaiting Oncology consultation. Jama Dorman MD
[2017-10-10 17:12] VITALS: O2SAT 98
--- NOTE | 2017-10-11 00:46 | PN ---
DATE: ENDOCRINOLOGY FOLLOWUP NOTE LOCATION: Room 318. SUBJECTIVE: This is a 71-year-old male with metastatic adenocarcinoma of the liver and has concurrently with very new oral intake because of generalized body weakness and marked anorexia and dyspepsia and is now being considered for hospice care at this time. His glucose levels today actually are elevated ranging from 275 to 338 and 386 mg/dL. LABORATORY DATA: His latest chemistry show BUN of 19, sodium of 134, potassium of 3.6, chloride of 102, CO2 of 27, glucose of 155, and creatinine is 1.6. ASSESSMENT AND PLAN: His premixed insulin regimen has been discontinued. At this time, he is only receiving Humalog coverage scale as ordered and given. However because of the new oral intake at this time, they withheld the premixed insulin regimen as mentioned. We will continue the low dose correction scale using Humalog insulin as ordered. We will follow and advise accordingly. Andria Cortez MD
[2017-10-11] MEDS: Pantoprazole 40 mg EC Tab PO SCH (05:48)
[2017-10-11] MEDS: Insulin Lispro (humaLOG) LOW Coverage SC SCH ×4 (06:49→22:23)
[2017-10-11] MEDS: Magnesium Oxide 400 mg Tab UD PO SCH (10:07)
[2017-10-11] MEDS: POLYETHYLENE GLYCOL 3350 17 GM/Dose PACKET PO SCH (10:07)
[2017-10-11] MEDS: Silver Sulfadiazine 1% Cream (25 gm) TP SCH (10:08)
[2017-10-11] MEDS: Collagenase 250 Units/gm Ointment(30 gm) TOP SCH (12:26)
--- NOTE | 2017-10-11 13:10 | PN ---
DATE: SUBJECTIVE: A 71-year-old white male. PHYSICAL EXAMINATION: VITAL SIGNS: Temperature 99.6, BP, and pulse of 96. LABORATORY DATA: BUN and creatinine are 19 and 1.6. Blood sugar 155. Hemoglobin 8.9. The patient recently found to have metastatic probable CA from probable lung to liver and brain metastases. The patient is on Decadron for vasogenic edema of the brain. He has long history of dementia. He is tolerating his diet well. He has aphasia with minimal speech. Vital signs are stable. The patient is being evaluated for hospice care and to be home with his . Physical examination is unchanged. Jama Dorman MD
--- NOTE | 2017-10-11 16:55 | PN ---
DATE: ENDOCRINOLOGY FOLLOWUP NOTE LOCATION: Room 318. SUBJECTIVE: This is a 71-year-old male with recent uncontrolled type 2 insulin-requiring diabetes now taken off oral insulin therapy and currently only on the coverage scale with Humalog insulin as given. He has been diagnosed with metastatic adenocarcinoma of the liver and is clinically and metabolically deteriorating and declining at this time, as noted. He has been considered for hospice care as noted. His latest glucose levels have ranged from 275 to 294 mg/dL. The premixed insulin regimen has been withheld at this time as noted. We will sign off on the endocrine care at this point. Concur with the present medical and palliative management as noted. Andrai Cortez MD
[2017-10-11 17:49] VITALS: RESP 18; TEMP 98.8
--- NOTE | 2017-10-11 18:05 | PN ---
DATE: 10/11/2017 SUBJECTIVE: The patient is in bed in no acute distress, nontoxic, chronically ill. PHYSICAL EXAMINATION VITAL SIGNS: Temperature of 98, blood pressure is 160/80 and respiratory rate of 18. HEENT: Unremarkable. NECK: Supple. LUNGS: Have decreased breath sounds. HEART: Normal S1 and S2. ABDOMEN: Soft and nontender. LABORATORY EXAMINATION: Reveals a white count of 4.9, hemoglobin of eight and platelets of 126. Chemistries are noted and creatinine is 1.6 with a BUN of 19. Review of orders reveals the patient to be off of antibiotics. Dr. Dorman's note is reviewed from yesterday. ASSESSMENT AND PLAN: This is a 71-year-old with right upper skin soft tissue infection, wound necrosis, Escherichia coli and Enterococcus status post debridement with acute encephalopathy on hypoglycemia with multiple liver metastases, adenocarcinoma and deep venous thrombosis diabetic, has had adequate therapy with antibiotics. Currently is off of antibiotics. Case discussed with Dr. Dorman this morning, he will be discharging the patient for hospice and the patient with multiple liver metastases probably long in origin and bullous pemphigoid arm lesion Keith August MD
[2017-10-12] MEDS: Pantoprazole 40 mg EC Tab PO SCH (05:20)
[2017-10-12] MEDS: Insulin Lispro (humaLOG) LOW Coverage SC SCH ×2 (06:50→12:16)
[2017-10-12 07:49] VITALS: BP 163/88; PULSE 81
[2017-10-12] MEDS: Magnesium Oxide 400 mg Tab UD PO SCH (09:31)
[2017-10-12] MEDS: POLYETHYLENE GLYCOL 3350 17 GM/Dose PACKET PO SCH (09:33)
[2017-10-12] MEDS: Collagenase 250 Units/gm Ointment(30 gm) TOP SCH (09:33)
[2017-10-12] MEDS: Silver Sulfadiazine 1% Cream (25 gm) TP SCH (09:34)
--- NOTE | 2017-10-12 19:24 | PN ---
DATE: 10/12/2017 SUBJECTIVE: The patient is seen earlier this morning in room 318. He is weak. No fever. No chills. PHYSICAL EXAMINATION: VITAL SIGNS: Temperature is 98, blood pressure is 160/80, respiratory rate of 18. HEENT: Unremarkable. NECK: Supple. LUNGS: Decreased breath sounds. HEART: Normal S1 and S2. ABDOMEN: Soft. LABORATORY EXAMINATION: Reveals a white count of 4.9, hemoglobin of 8, platelets of 126. Chemistries are noted. ASSESSMENT AND PLAN: This is a 71-year-old male seen early this morning in room 318 with soft tissue skin infection bullous pemphigoid at the arm. Now has multiple liver metastasis, adenocarcinoma, history with deep venous thrombosis, diabetic. Currently off of antibiotics. The patient should be hospice setting, nothing else further . Keith August MD
--- NOTE | 2017-10-12 21:58 | PN ---
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 The patient is evaluated for hospice. He is receiving Decadron for his [employer] metastasis with the vasogenic edema. He is receiving physical therapy, occupational therapy and treatment of his local wound care. The patient most likely will be discharged to hospice as soon as arrangements are made. Jama Dorman MD
--- NOTE | 2017-10-13 04:24 | DS ---
HISTORY OF PRESENT ILLNESS: The patient is a 71-year-old male with history of dementia, pyoderma gangrenosum bullous type, metastatic pancreatobiliary cancer, metastatic liver with brain mets, dementia, left iliofemoral DVT. The patient was discharged to home to hospice. The case was discussed with the family and with . The patient was on Decadron and blood sugar coverage. He will be discharged to home in improved condition to continue therapy at home and to continue with hospice. 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 Jama Dorman MD
== END 2017-10-12 14:22 | disposition hospice, home (50) | DRG 435 ==
LOC: TRCU 17:04
PROVIDERS: ADMIT Internal Medicine; ATTEND Internal Medicine
PROC: F07Z9ZZ Gait Training/Functional Ambulation Treatment (ICD-10-PCS; principal; 2017-10-07)
PROC: F08Z4ZZ Home Management Treatment (ICD-10-PCS; 2017-10-07)
DX: C25.9 Malignant neoplasm of pancreas, unspecified (principal); L88 Pyoderma gangrenosum; G93.6 Cerebral edema; C78.7 Secondary malignant neoplasm of liver and intrahepatic bile duct; C79.31 Secondary malignant neoplasm of brain; G93.40 Encephalopathy, unspecified; R47.01 Aphasia; L12.0 Bullous pemphigoid; E11.649 Type 2 diabetes mellitus with hypoglycemia without coma; E11.65 Type 2 diabetes mellitus with hyperglycemia; I25.10 Atherosclerotic heart disease of native coronary artery without angina pectoris; F02.80 Dementia in other diseases classified elsewhere, unspecified severity, without behavioral disturbance, psychotic disturbance, mood disturbance, and anxiety; G30.9 Alzheimer's disease, unspecified; I12.9 Hypertensive chronic kidney disease with stage 1 through stage 4 chronic kidney disease, or unspecified chronic kidney disease; E11.22 Type 2 diabetes mellitus with diabetic chronic kidney disease; N18.9 Chronic kidney disease, unspecified; Z51.5 Encounter for palliative care; Z66 Do not resuscitate; Z79.4 Long term (current) use of insulin; Z95.1 Presence of aortocoronary bypass graft